=== PATIENT | male | born 1940 | race Caucasian/White ===

== ENCOUNTER → 2017-10-25 | Outpatient (CLI) | payer BC ==
[~2017-10-25] MED LIST: [UNRECOGNIZED DRUG - OTHER]
[2017-10-25 12:35] LABS: HEMATOCRIT 43.3 % (42-52); MEAN CELL VOLUME 90.2 fL (80-100); MEAN CORPUSCULAR HEMOGLOBIN 31.3 pg (25-34); MEAN CORPUSCULAR HGB CONC 34.6 g/dl (32-36); MEAN PLATELET VOLUME 10.1 fL (7.4-10.4); PLATELET COUNT 244 K/uL (130-400); RED CELL DISTRIBUTION WIDTH CV 12.8 % (11.5-14.5); RED CELL DISTRIBUTION WIDTH SD 42.3 fL (36.4-46.3); WHITE BLOOD COUNT 4.82 K/uL (4.8-10.8)
[2017-10-25 12:57] LABS: HEMOGLOBIN A1C 6.1 % (4.5-5.6)
[2017-10-25 13:25] LABS: ALBUMIN 3.7 gm/dl (3.4-5.0); ALT/SGPT 45 U/L (12-78); AST/SGOT 26 U/L (15-37); BLOOD UREA NITROGEN 21 mg/dl (7-18); CALCIUM 8.9 mg/dl (8.5-10.1); CARBON DIOXIDE 24 mmol/L (21-32); CHOLESTEROL 162 mg/dl (0-200); CREATININE 1.35 mg/dl (0.60-1.40); GLUCOSE 149 mg/dl (70-99); POTASSIUM 4.2 mmol/L (3.5-5.1); SODIUM 139 mmol/L (136-145)
[2017-10-25 13:35] LABS: ALKALINE PHOSPHATASE 81 U/L (45-117); LDL CHOLESTEROL CALCULATED 105 mg/dl; TOTAL PROTEIN 7.4 gm/dl (6.4-8.2)
== END | disposition home or self-care (01) ==
LOC: C.LABPVFM 07:46
PROVIDERS: ATTEND Family Medicine
DX: R03.0 Elevated blood-pressure reading, without diagnosis of hypertension (principal)

== ENCOUNTER 2018-01-04 18:47 | Emergency (ER) | payer BC ==
[~2018-01-04] VITALS: Ht 180.3 cm; Wt 130.0 kg
[2018-01-04 18:52] VITALS: TEMP 36.7; Ht 180.3 cm; Wt 130.0 kg
[2018-01-04 19:47] LABS: PTT PATIENT 25.7 SECONDS (21.0-31.0)
--- NOTE | 2018-01-04 20:56 | DIAGNOSTIC IMAGING REPORT ---
ULTRASOUND RIGHT LOWER EXTREMITY VENOUS CLINICAL HISTORY: Right leg pain and swelling. COMPARISON STUDY: No priors. TECHNIQUE: Real-time, grayscale, and color Doppler sonography of the deep veins of the right lower extremity was performed from the inguinal crease to the calf. Compression and augmentation were utilized. FINDINGS: There is no sonographic evidence of deep venous thrombosis identified in the right lower extremity. The common femoral, superficial femoral, and popliteal veins are patent and normally compressible. The greater saphenous vein and the profunda femoris vein at the junction with the common femoral vein are clear. The visualized calf veins are patent. IMPRESSION: There is no sonographic evidence of deep venous thrombosis identified in the right lower extremity. Electronically signed by: Francois Estrada M.D. 01/04/2018 8:55 PM Dictated Date/Time: 01/04/2018 8:54 PM
--- NOTE | 2018-01-04 21:08 | EMERGENCY ROOM VISIT NOTE ---
History First contact with patient: 19:01 Chief Complaint: LEG PAIN,LEG INJURY Stated Complaint: SEVERE PAIN IN LOWER RT LEG, CAN NOT LIFT History of Present Illness The patient is a 77 year old male who presents to the Emergency Room with complaints of right lower leg pain. The patient states that the pain started 2 days ago. He states it hurts if he has to lift up his leg but denies minimal pain with weightbearing. The patient denies any injury to his leg. The patient denies any prior DVTs. The patient is not on any blood thinners. The patient was seen at his PCP yesterday for a cough and was prescribed doxycycline for bronchitis. The patient states the pain did not start in his leg until after he saw his PCP yesterday. The patient denies any chest pain or shortness of breath. The patient denies any increased sitting for any extended period of time. The patient denies current tobacco use. Review of Systems 10 system review was performed and was negative unless stated otherwise history of present illness. Past Medical/Surgical History Right knee surgery Social History Smoking Status: Never Smoker Alcohol Use: occasionally Marital Status: Housing Status: lives with family Occupation Status: retired Current/Historical Medications Scheduled [Supple], DAILY Physical Exam Vital Signs Date Time Temp Pulse Resp B/P (MAP) Pulse Ox O2 Delivery O2 Flow Rate FiO2 18 18:52 36.7 75 18 150/82 95 Room Air Physical Exam GENERAL: 37-year-old male appears in no acute distress. MENTAL Status: Alert and oriented 3. NECK: Supple, no lymphadenopathy noted. No carotid bruits noted. LUNGS: Patient has scattered rhonchi in the right lung field with total clearing with cough. No wheezes or rales noted bilaterally. CARDIAC: Regular rate and rhythm without murmur. . Pulses is full and equal throughout. RIGHT LOWER EXTREMITY: No pitting edema noted. The patient's lower leg does appears slightly edematous but no erythema noted. The patient has superficial varicosities of the right lower extremity. The patient has tenderness palpation over the medial knee and just inferior to the knee on the medial aspect. Popliteal region without tenderness. Medial thigh without tenderness. Negative Homans. Medical Decision & Procedures ER Provider Diagnostic Interpretation: ULTRASOUND RIGHT LOWER EXTREMITY VENOUS CLINICAL HISTORY: Right leg pain and swelling. COMPARISON STUDY: No priors. TECHNIQUE: Real-time, grayscale, and color Doppler sonography of the deep veins of the right lower extremity was performed from the inguinal crease to the calf. Compression and augmentation were utilized. FINDINGS: There is no sonographic evidence of deep venous thrombosis identified in the right lower extremity. The common femoral, superficial femoral, and popliteal veins are patent and normally compressible. The greater saphenous vein and the profunda femoris vein at the junction with the common femoral vein are clear. The visualized calf veins are patent. IMPRESSION: There is no sonographic evidence of deep venous thrombosis identified in the right lower extremity. Electronically signed by: Francois Estrada M.D. Laboratory Results Test 01/04/18 19:19 Prothrombin Time 10.7 SECONDS (9.0-12.0) Prothromb Time International Ratio 1.0 (0.9-1.1) Activated Partial Thromboplast Time 25.7 SECONDS (21.0-31.0) Partial Thromboplastin Ratio 1.0 ED Course The patient was evaluated. Coags were ordered. Venous Doppler of the right lower extremity was ordered. The patient was offered pain medication but declined. Coags were normal. Venous Doppler revealed no evidence of DVT or extensive superficial phlebitis. The patient was informed of the findings. I therefore ordered an x-ray of the right knee to include AP standing x-rays to evaluate for severe osteoarthritis. I discussed with the patient's that since he is also complaining of diffuse joint pain he may want to follow with his family doctor for rheumatoid workup. At this time was the end of my shift and I signed the patient's case out to Dada Truong PA-C. Please see his note for remainder of patient care. Medical Decision Differential diagnosis include varicose veins, superficial phlebitis, DVT [place] Drug Monitoring Program Search Results: patient reviewed within database Medication Reconcilliation Current Medication List: was personally reviewed by me Blood Pressure Screening Patient's blood pressure: Elevated blood pressure Blood pressure disposition: Elevated BP felt to be situational Impression Primary Impression: Leg pain, right Departure Information Condition GOOD Referrals Idalia Blake M.D. (PCP) Patient Instructions My [facility]
--- NOTE | 2018-01-04 21:34 | DIAGNOSTIC IMAGING REPORT ---
AP STANDING VIEW OF BOTH KNEES; 2 VIEWS RIGHT KNEE CLINICAL HISTORY: Right knee pain. FINDINGS: An AP standing view of both knees with AP and crosstable lateral views of the right knee are obtained. No prior studies are available for comparison at the time of dictation. The skeletal structures are osteopenic. No right knee fracture is identified. There is moderate degenerative narrowing at the patellofemoral articulation. Advanced degenerative narrowing is seen in the medial compartment where there is near complete loss of the joint space, bony sclerosis, and subchondral cyst formation within the medial tibial plateau. Only mild narrowing is seen in the lateral compartment. There are marginal osteophytes and small patellar enthesophytes. No joint effusion is identified. Mild prepatellar soft tissue swelling is suggested. Survey images of the left knee on the frontal view show advanced narrowing in the medial compartment and mild to moderate narrowing in the lateral compartment. IMPRESSION: 1. Mild soft soft tissue swelling with no acute bony abnormality identified in the right knee. 2. Osteopenia and arthritic change as above. Electronically signed by: Francois Estrada M.D. 01/04/2018 9:33 PM Dictated Date/Time: 01/04/2018 9:30 PM
--- NOTE | 2018-01-04 22:07 | EMERGENCY ROOM VISIT NOTE ---
ED Visit Note First contact with patient: 21:54 Patient care was assumed from Phoebe Mo PA-C, at the time of shift change. Please see MsTobias Mo dictation for full history of present illness and emergency department course outside of this dictation. In short the patient has nontraumatic right leg pain causing him to come to the ER. Ultrasound has been performed and was negative. We were awaiting x-ray results of the right knee at the time of shift change. X-ray results were reviewed by myself and radiology as below: AP STANDING VIEW OF BOTH KNEES; 2 VIEWS RIGHT KNEE CLINICAL HISTORY: Right knee pain. FINDINGS: An AP standing view of both knees with AP and crosstable lateral views of the right knee are obtained. No prior studies are available for comparison at the time of dictation. The skeletal structures are osteopenic. No right knee fracture is identified. There is moderate degenerative narrowing at the patellofemoral articulation. Advanced degenerative narrowing is seen in the medial compartment where there is near complete loss of the joint space, bony sclerosis, and subchondral cyst formation within the medial tibial plateau. Only mild narrowing is seen in the lateral compartment. There are marginal osteophytes and small patellar enthesophytes. No joint effusion is identified. Mild prepatellar soft tissue swelling is suggested. Survey images of the left knee on the frontal view show advanced narrowing in the medial compartment and mild to moderate narrowing in the lateral compartment. IMPRESSION: 1. Mild soft soft tissue swelling with no acute bony abnormality identified in the right knee. 2. Osteopenia and arthritic change as above. On reevaluation the patient had improved pain in the right knee. He does appear well for discharge home. I did offer him pain medication, but he declined. He was comfortable with taking [id number]-[id number]-[id number] analgesics. I suspect his symptoms are related to chronic arthritic changes, and I will give him resources to follow with orthopedics. Was otherwise invited back to the ER with any new, worsening, or concerning symptoms. Current/Historical Medications Scheduled [Supple], DAILY Allergies Coded Allergies: No Known Allergies (Unverified , 09/12/12) Vital Signs Date Time Temp Pulse Resp B/P (MAP) Pulse Ox O2 Delivery O2 Flow Rate FiO2 01/04/18 21:44 72 18 155/72 95 Room Air 01/04/18 20:30 73 20 151/84 96 Room Air 01/04/18 18:52 36.7 75 18 150/82 95 Room Air Laboratory Results Test 01/04/18 19:19 Prothrombin Time 10.7 SECONDS (9.0-12.0) Prothromb Time International Ratio 1.0 (0.9-1.1) Activated Partial Thromboplast Time 25.7 SECONDS (21.0-31.0) Partial Thromboplastin Ratio 1.0 Departure Information Impression Primary Impression: Leg pain, right Dispostion Home / Self-Care Condition GOOD Referrals Idalia Blake M.D. (PCP) Danny Black D.O. Forms HOME CARE DOCUMENTATION FORM, IMPORTANT VISIT INFORMATION Patient Instructions My [facility] Additional Instructions You were seen and evaluated today on an emergency basis only. This is not a substitute for, or an effort to provide, complete comprehensive medical care. It is not possible to recognize and treat all injuries or illnesses in a single emergency department visit. For this reason it is recommended that you followup with [facility] , Dr. Black's office, with any ongoing or persisting symptoms. You may also wish to follow with her primary care physician with this complaint. For baseline pain relief you may alternate ibuprofen and acetaminophen every 4 hours for pain control. Take 600 mg ibuprofen (Advil) and then 4 hours later take 1000 mg acetaminophen (Tylenol). Do not take more than 3000 mg acetaminophen in a single day. You are welcome to return to the emergency department anytime with new, worsening, or concerning symptoms.
[2018-01-04 22:10] VITALS: BP 135/74; PULSE 70; O2SAT 95
== END 2018-01-04 22:11 | disposition home or self-care (01) ==
LOC: C.EDB 18:49 → C.EDD 22:11
DX: M79.604 Pain in right leg (principal)

== ENCOUNTER → 2018-05-06 | Outpatient (CLI) | payer BC ==
[2018-05-06 13:03] LABS: ALBUMIN 3.5 gm/dl (3.4-5.0); ALKALINE PHOSPHATASE 74 U/L (45-117); ALT/SGPT 38 U/L (12-78); AST/SGOT 25 U/L (15-37); BLOOD UREA NITROGEN 14 mg/dl (7-18); CALCIUM 8.3 mg/dl (8.5-10.1); CARBON DIOXIDE 25 mmol/L (21-32); CHOLESTEROL 150 mg/dl (0-200); CREATININE 1.05 mg/dl (0.60-1.40); GLUCOSE 96 mg/dl (70-99); LDL CHOLESTEROL CALCULATED 86 mg/dl; POTASSIUM 4.1 mmol/L (3.5-5.1); SODIUM 141 mmol/L (136-145)
[2018-05-06 13:26] LABS: HEMOGLOBIN A1C 6.5 % (4.5-5.6)
== END | disposition home or self-care (01) ==
LOC: C.LABPVFM 11:09
PROVIDERS: ATTEND Family Medicine
DX: E66.9 Obesity, unspecified (principal); H61.23 Impacted cerumen, bilateral

== ENCOUNTER 2021-12-07 06:36 | Observation (INO) ==
--- NOTE | 2021-11-09 13:20 | History & Physical Report ---
Date of Service November 09, 2021 date of surgery: 11/15/21 Procedure: Right Total Knee Arthroplasty Surgeon: Mik Bartholomew Assessment & Plan (1) Arthritis of right knee: Plan: Risks and benefits of procedure discussed in detail today, patient would like to proceed with a Right total knee replacement at [facility] as scheduled. will obtain medical clearance from Dr Bateman prior to surgery as well as obtain PATs at [facility]. Will place on ASA 81mg po bid x 1 month post op, f/u 2 weeks post op for routine post-operative care and x-ray, sooner if having any problems. will make arrangements for HHPT at the time of discharge. At this point in time, has failed conservative measures and would like to proceed with surgical intervention. The risks and benefits have been discussed including, but not limited to, risk of infection, nerve injury, stiffness, loss of motion, failure to improve, etc. Reasonable outcomes and options of treatment were discussed. An explanation of appropriate alternatives to the procedure that may be advantageous were di scussed and their risks and benefits, as well as the risks and benefits of not proceeding with treatment. I offered to answer any additional inquiries concerning the treatment involved. All the patient's questions were answered. The patient is agreeable, understanding of the treatment plan and alternatives, and wishes to proceed with the treatment plan. History of Present Illness Chief Complaint: right knee pain Primary Care Provider: Idalia Blake MD Robert is a 81 year old male who complains of Right knee pain, presents for pre-op evaluation prior to a Right total knee replacement by dr Bartholomew at [facility]. He complains of pain, decreased range of motion and stiffness in his Right knee. He states that the symptoms have been chronic and non-traumatic. Robert states that the symptoms occur constantly with intermittent worsening. Currently the patient states that the symptoms are moderate-severe. The pain is described as aching, sharp and throbbing. The symptoms occur continuously. The symptoms are aggravated by ascending stairs, daily activities, first steps while awake walking. Prior NSAIDs include IBU and Aleve. He has been treated with previous visco injections in the past without much relief. previous scope by dr Cardoza several years ago. Allergies Allergy/AdvReac Type Severity Reaction Status Date / Time No Known Allergies Allergy Unverified 08/16/21 12:21 Home Medications Medication Instructions Recorded Confirmed Type True Prostate 1 dose PO QAM 05/17/21 08/16/21 History alpha lipoic acid 100 mg capsule 100 mg PO QAM 05/17/21 08/16/21 History vit A 7,160 unit-vit C 113 mg-vit 1 tab PO QAM 05/17/21 08/16/21 History E 100 ljnc-[id number]-egounf tablet pramipexole 0.125 mg tablet 0.125 mg PO QPM #30 tab 08/16/21 08/16/21 Rx (Mirapex) Past Med/Surg History Medical History Borderline high cholesterol DM (diabetes mellitus), type 2 Diet controlled/under surveillance by PCP Encounter for pre-operative examination [place] (hard of hearing) HTN (hypertension) Pcp monitoring; no medications Obesity (BMI 30-39.9) Osteoarthritis Surgical History History of arthroscopy of right knee History of colonoscopy History of hernia surgery right inguinal History of thumb surgery had metal removed, LEFT History of tooth extraction Family History Family/Other No problems noted. Mother Family history of diabetes mellitus Other Family history of colon cancer in father Denies family history of Ovarian cancer Prostate cancer Clotting disorder Myocardial infarction Breast cancer Social History Smoking Status: Former smoker packs per day: 1; Years Smoked: 25; Second Hand Exposure: No; Hx Alcohol Use: Yes (HX OF - CURRENT : VERY LITTLE) Hx Substance Use: No Preferred Language: Malaysian Communication Ability: Effective [employer] Vault Required: No Beliefs That Will Affect Care: None marital status: Current Living Situation: Spouse current occupational status: retired How many Children do You have: 2 Feels Safe at Home: Yes Childhood Exposure to Second-Hand Smoke: No caffeine: Yes Dental Care, Regularly: No Physical Activity Frequency: Does not Exercise Seatbelt Use: always Sunscreen Use: No Assistive Devices: Denture - Upper, Denture - Lower and Glasses Review of Systems Review of Systems: All systems reviewed & are unremarkable except as noted in HPI & below Constitutional: no fever, no chills and no sweats Respiratory: no cough and no dyspnea Cardiovascular: no chest pain, no dyspnea and no orthopnea Gastrointestinal: no abdominal pain, no nausea and no vomiting Musculoskeletal: as per Subjective / HPI Physical Exam Physical Exam: Ht: 5ft 11in Wt: 128.8kg Constitutional: WD/WN, vitals as above no acute distress Respiratory: normal respiratory effort, lungs clear to auscultation no respiratory distress, no labored breathing and does not use accessory muscles Cardiovascular: RRR, no murmur, no edema Gastrointestinal (Abdomen): normal bowel sounds, soft, nontender, no hepatosplenomegaly Musculoskeletal: Right Knee:+ knee abnormal to inspection , + effusion (+1 effusion), + surgical incision (well healed portals), + limited ROM of knee (ROM 0/3/110), + knee ROM with crepitation, + joint line tenderness (medial joint line) and + Herman's sign positive; no deformity, no skin erythema, no ecchymosis, no valgus laxity, no varus laxity, anterior drawer test negative, Kalpesh's sign negative and pivot shift test negative Results & Data Results & Data ([facility]) Diagnostic Findings Standing weight bearing flexed knee PA views reveal [id number]-[id number]-[id number] articulation of the medial compartment of the knee. 90 degree flexed lateral views reveal maintenance of the joint space consistent with an intact ACL. Osteophyte formation is noted. degenerative changes noted patellofemoral joint. ASSESSMENT: Severe anteromedial arthritis of the knee. bone cyst noted medial tibial plateau.
--- NOTE | 2021-11-11 13:02 | Anesthesiology Consultation ---
Date of Service November 11, 2021 Assessment & Plan (1) Encounter for pre-operative examination: Chart Review Chart Review: Acceptable Risk for Surgery (pending preop Covid testing results ) and Patient NOT seen in Pre Admission Testing - Check BSG AM DOS Per nursing assessment 11/10/2021, patient denies any recent travel. No known Covid infection in the past 90 days. Patient is fully vaccinated for Covid. No known Covid positive exposures or Covid related symptoms. Preop Covid testing 11/11/21= results pending PCP clearance 04/18/21= "Pt cleared as a low risk for knee surgery". (Pt rescheduled multiple times due to Covid surge - did write note to PCP regarding if patient still remained acceptable risk for surgery as he was seen in Aug 2021. Per PCP response 11/11/21= "Yes, I believe he is at acceptable risk for surgery.") History Surgery Operation Date: 11/15/21 11:35 Proposed Procedures p Right Total Knee Arthroplasty - Mik Bartholomew DO Height/Weight Height: 5 ft 11.5 in Weight: 127.006 kg Allergies Allergy/AdvReac Type Severity Reaction Status Date / Time No Known Allergies Allergy Unverified 11/10/21 13:19 Medications Home Medications Medication Instructions Recorded Confirmed Last Taken True Prostate 1 dose PO QAM 05/17/21 11/10/21 Unknown alpha lipoic acid 100 mg capsule 100 mg PO QAM 05/17/21 11/10/21 Unknown vit A 7,160 unit-vit C 113 mg-vit 1 tab PO QAM 05/17/21 11/10/21 Unknown E 100 fasc-opko-eoupcb tablet Past Medical History Medical History Borderline high cholesterol DM (diabetes mellitus), type 2 Diet controlled/under surveillance by PCP [place] (hard of hearing) HTN (hypertension) Pcp monitoring; no medications Obesity (BMI 30-39.9) Osteoarthritis Past Family History Family History Family/Other No problems noted. Mother Family history of diabetes mellitus Other Family history of colon cancer in father Denies family history of Ovarian cancer Prostate cancer Clotting disorder Myocardial infarction Breast cancer Past Surgical History Surgical History History of arthroscopy of right knee History of colonoscopy History of hernia surgery right inguinal History of thumb surgery had metal removed, LEFT History of tooth extraction Social History Smoking Status: Former smoker tobacco type: cigarettes Do You Dip or Chew Tobacco: No Smoking End Date: 1981 Hx Alcohol Use: Yes (HX OF - CURRENT : VERY LITTLE) alcohol intake frequency: holidays/special occasions only Hx Substance Use: No substance use type: does not use Lab Results Anesthesia Preop Results Results Anesthesia Widget: WBC 5.40 K/uL (4.8-10.8) 11/11/21 Hgb 14.8 g/dL (14.0-18.0) 11/11/21 Hct 42.2 % (42-52) 11/11/21 Plt 232 K/uL (130-400) 11/11/21 Na 139 mmol/L (136-145) 11/11/21 K 4.1 mmol/L (3.5-5.1) 11/11/21 Cl 106 mmol/L (98-107) 11/11/21 CO2 26 mmol/L (21-32) 11/11/21 BUN 13 mg/dl (6-23) 11/11/21 Creat 1.12 mg/dl (0.6-1.4) 11/11/21 Glucose Level 150 mg/dl (70-99(Fasting)) H 11/11/21 PT 10.8 Seconds (9.0-12.0) 11/11/21 PTT 27.0 Seconds (21.0-31.0) 11/11/21 INR 1.0 (0.9-1.1) 11/11/21 HA1c 6.8 % (4.5-5.6) H 11/11/21 Urine Color Yellow 11/11/21 Urine Appearance Clear (Clear) 11/11/21 Urine pH 5.5 (4.5-7.5) 11/11/21 Urine Specific [place] 1.018 (1.000-1.030) 11/11/21 Urine Protein Negative (Negative) 11/11/21 Urine Glucose (UA) Negative (Negative) 11/11/21 Urine Ketones Negative (Negative) 11/11/21 Urine Blood Negative (Negative) 11/11/21 Urine Nitrite Negative (Negative) 11/11/21 Urine Bilirubin Negative (Negative) 11/11/21 Urine Urobilinogen Negative (Negative) 11/11/21 Urine Leukocyte Esterase Negative (Negative) 11/11/21 Testing Electrocardiogram Date: 04/18/21 NSR at 69bpm. LAFB. Unchanged from prior per confirming provider Chest X-Ray Date: 05/23/21 FINDINGS: No pneumothorax. No pleural effusions. The heart remains mildly enlarged. There are low lung volumes. Chronic bibasilar interstitial thickening persists. The upper lung zones are clear. No new focal lung consolidations to suggest pneumonia. No evidence for pulmonary edema. IMPRESSION: No significant change compared to the prior study. No acute process.
[~2021-12-07 06:36] MED LIST changes: +ACETAMINOPHEN 500 MG TAB PO SCH; +CeleBREX 200 MG CAP PO SCH; +FAMOTIDINE 20 MG TAB PO SCH; +GABAPENTIN 300 MG CAP PO SCH; +LR 500ML BOLUS, THEN 15ML/HR IV SCH; +METOCLOPRAMIDE HCL 10 MG TABLET PO SCH; +ROPIVACAINE 0.5% HCL/PF 150 MG, BUPIVACAINE 0.75% MPF 20 ML, EPINEPHrine 30MG/30ML (OR ... INFIL SCH; +Scopolamine 1 MG TDSY TD SCH; +Scopolamine CHECK PATCH PLACEMENT SCH; +TRANEXAMIC ACID 1,000 MG **IV Intra-op IV SCH; +TRANEXAMIC ACID 1,000 MG **IV Pre-op IV SCH; -[UNRECOGNIZED DRUG - OTHER]; +dexAMETHasone 4 MG TAB PO SCH
[2021-12-07] MEDS ORDERED: MIDAZOLAM HCL 1 MG/ML 2ML VIAL ONE (07:06)
[2021-12-07] MEDS ORDERED: fentaNYL citrate 100 MCG/2 ML VIAL ONE (07:06)
--- NOTE | 2021-12-07 07:18 | History & Physical Bridge Note ---
Date of Service December 07, 2021 History & Physical Bridge Note I have examined the patient, reviewed the History & Physical and in the interval since the performance of the History & Physical I have noted the following changes of clinical significance: no changes noted
[2021-12-07] MEDS ORDERED: BUPIVACAINE 0.25% 30 ML VIAL ONE (07:29)
[2021-12-07] MEDS ORDERED: DEXAMETHASONE SOD INJ 4 MG/ML VIAL ONE (07:29)
[2021-12-07] MEDS ORDERED: BUPIVACAINE 0.5 % 5 MG/1 ML PF 10ML VIAL ONE (07:29)
[2021-12-07] MEDS ORDERED: EPINEPHrine INJ 1 MG/ML AMP ONE (07:29)
[2021-12-07] MEDS ORDERED: ePHEDrine sulfate 50 MG/ML AMP IV PRN (07:36)
[2021-12-07] MEDS ORDERED: ATROPINE SULFATE 0.1 MG/ML 10ML SYR IV PRN (07:36)
[2021-12-07] MEDS ORDERED: fentaNYL citrate 100 MCG/2 ML VIAL IV PRN (07:36)
[2021-12-07] MEDS ORDERED: ONDANSETRON INJ 2 MG/ML 2 ML VIAL IV PRN ×2 (07:36→13:50)
[2021-12-07] MEDS ORDERED: ORTHO JOINT ANESTHETIC ONE (07:39)
[2021-12-07] MEDS ORDERED: LIDOCAINE 2% 2 ML VIAL/AMP(20MG/ML) INFIL ONE (08:47)
[2021-12-07] MEDS ORDERED: PROPOFOL IV EMULSION 10 MG/ML 20 ML VIAL IV ONE ×2 (08:47→09:24)
[2021-12-07] MEDS ORDERED: ONDANSETRON INJ 2 MG/ML 2 ML VIAL ONE (08:50)
[2021-12-07] MEDS ORDERED: ePHEDrine sulfate 50 MG/ML AMP ONE (08:59)
--- NOTE | 2021-12-07 09:39 | Operative Report ---
Post Operative Report Pre & Post Diagnosis Operation Date: 12/07/21 08:10 Pre-Op Diagnosis: Right Knee Osteoarthritis Post-Op Diagnosis: Right Knee Osteoarthritis I identified the patient and participated in the time-out.: Yes Procedure Operation Date: 12/07/21 08:10 Actual Procedures p Right Total Knee Arthroplasty utilizing [employer] Nephew nonwalk total knee arthroplasty size femur 7 tibia 6 polynine patella 35 oval (Right) - Mik Bartholomew DO Surgeon Mik Bartholomew DO Diesel Stationary Engineer Sarabjit LOYOLA Estimated Blood Loss 5 Findings Consistent with Post-Op Diagnosis Patient presents with severe end-stage DJD varus alignment subchondral sclerosis marginal osteophytes eburnated [id number] moderate to large effusion large medial cystic lesion in the region of the MCL ganglion cyst Specimens Bone and cartilage Anesthesia Type MAC Spinal Regional Complications none Disposition Accompanied Patient To Recovery: No Disposition: Recovery Room Indications Patient presents with severe end-stage tricompartmental DJD eburnated [id number] 7 degree flexion contracture varus alignment no response to conservative management clinic physical therapy anti-inflammatories relative res t activity modification corticosteroid injection viscosupplementation above intraoperative findings were noted Description of Procedure After proper prepping and draping of the Right lower extremity anterior midline incision was made over the region of the extensor extensor mechanism after meticulous hemostasis was obtained and maintained in subcutaneous tissues a medial parapatellar incision was made The patella was subluxed lateralward the medial lateral gutter were cleaned from any hypertrophic synovitis and scar tissue of the distal femoral block was placed and the distal femoral osteotomy cut was made subsequently the chamfers anterior and posterior osteotomy cuts were made utilizing the 4-in-1 block the tibia was subsequently subluxed anteriorward medial and ateral meniscal remnants were excised in their entirety remnants of the anterior and posterior cruciate ligaments were excised in their entirety excellent exposure of the proximal tibia was obtained the tibial osteotomy guide was placed on the proximal tibial osteotomy cut was made once again the knee was irrigated with copious amounts of sterile saline solution the patella was subsequently everted lateralward thickened scar tissue around the patella was removed the patella was subsequently cut utilizing a freehand technique and was drilled prepared for final preparation and placement of patella socially flexion-extension gaps were checked and the equal and symmetric trials were placed to the appropriate femoral and tibial trials with poly-spacer being placed for equal flexion and extension gaps and full range of motion including extension to 0 and flexion to 140 the trial components after having been taken to recovery range of motion was subsequently removed meticulous hemostasis was obtained and maintained subsequently a knee block injection of joint cocktail including ropivacaine 0.5% 150 mg. Bupivacaine 0.5% epinephrine 1-200,030 mL's toradol 30 mg dexamethasone 4 mg ketamine 10 mg clonidine 100 micrograms normal saline solution 30 mg was infiltrated into the soft tissues of the posterior knee medial lateral gutters and periosteal synovium special attention was paid to protect neurovascular structures at all times subsequently trial components having been removed the knee was irrigated with sterile saline solution. debris was removed the proximal tibia was subsequently prepared and was made ready for the placement of the tibial component tibial component was also cemented and tamped into position the femoral component was subsequently pl aced and cemented in the position the patellar component was subsequently cemented in position because hemostasis once again obtained and maintained wound having been thoroughly irrigated with debridement and debridement lavage was performed as well as a medial parapatellar incision closed with #1 Vicryl in interrupted fashion subcutaneous was closed with #2 Vicryl skin was closed with skin clips. PA-C was necessary for prepping and drapping as well as wound closure of deep fascia Sub cutaneous tissue and skin and was necessary for the case. A sterile compressive dressing was placed patient was taken to recovery in stable condition of report dictated by Puma I attest to the content of the Intraoperative Record and any orders documented therein. Any exceptions are noted below.Due to the complex nature of the procedure, the entire surgery was performed with the operational assistance of Williams LOYOLA The retail loan originator assistant, under direct supervision, was involved in the actual performance of all aspects of the surgical procedure including hemostasis, tissue retraction and incision, instrument management, patient positioning, and wound closure. I attest to the content of the Intraoperative Record and any orders documented therein. Any exceptions are noted below.
--- NOTE | 2021-12-07 10:57 | Anesthesiology Progress Note ---
Date of Service December 07, 2021 Anesthesia Post Procedure Vital Signs Vital Signs: Temp Pulse Pulse Resp BP Pulse Ox 12/07/21 10:35 58 L 14 101/54 L 97 12/07/21 10:25 62 16 97/53 L 98 12/07/21 10:16 36.1 C L 61 16 104/42 L 96 12/07/21 07:28 37.3 C 74 20 177/84 H 96 Transfer of Care Handoff Completed per policy Notes Mental Status: alert / awake / arousable Patient Amnestic to Procedure: Yes Nausea / Vomiting: adequately controlled Pain: adequately controlled Airway Patency, RR, SpO2: stable & adequate BP & HR: stable & adequate Hydration State: stable & adequate Neuraxial Anesthesia: was administered and sensory block is resolving Anesthetic Complications: no major complications apparent and Pt Satisfied with anesthetic care
--- NOTE | 2021-12-07 11:21 | XRay Report ---
XR knee RT 1 or 2V routine HISTORY: 81 years-old Male Surgical Post Op right knee total joint arthroplasty COMPARISON: Knee radiographs 01/04/2018 TECHNIQUE: 2 views of the right knee FINDINGS: Right knee total joint arthroplasty and patella resurfacing. Anterior midline skin preet are noted along with expected postoperative soft tissue swelling and deep tissue air with surgical drainage cat heter. No acute fracture, malalignment or unexpected opaque foreign body. IMPRESSION: Right knee total joint arthroplasty with expected postoperative changes. ACT 112: Negative or not required by law. The above report was generated using voice recognition software. It may contain grammatical, syntax o r spelling errors. Electronically signed by: Silvestre Disla M.D. 12/07/2021 11:19 AM
[2021-12-07] MEDS ORDERED: HYDROmorphone INJ 0.5 MG/0.5 ML SYR IV PRN (13:50)
[2021-12-07] MEDS ORDERED: PHARMACY GLYCEMIC MGMT CONSULT PRN (13:50)
[2021-12-07] MEDS ORDERED: bisacodyL 10 MG SUPP PR PRN (13:50)
[2021-12-07] MEDS ORDERED: oxyCODONE HCL IR 5 MG TAB (IMMEDIATE RELEASE) PO PRN (13:50)
[2021-12-07] MEDS ORDERED: MAGNESIUM HYDROXIDE SUSP 30 ML UDC PO PRN (13:50)
[2021-12-07] MEDS ORDERED: NALOXONE HCL 0.4 MG/1 ML VIAL/CARP IV PRN (13:50)
[2021-12-07] MEDS ORDERED: TAMSULOSIN HCL 0.4 MG CAP PO PRN (13:50)
[2021-12-07] MEDS: SODIUM CHLORIDE 0.9% 1000ML 1,000 ML IV SCH (14:14)
[2021-12-07] MEDS ORDERED: GLUCOSE 40% GEL 15 GM TUBE PO PRN (14:30)
[2021-12-07] MEDS ORDERED: CARBOHYDRATES FOR HYPOGLYCEMIA PO PRN (14:30)
[2021-12-07] MEDS ORDERED: NovoLIN-N (NPH) PER UNIT CHARGE SQ ONE (14:30)
[2021-12-07] MEDS ORDERED: GLUCOSE 10 TABS/TUBE PO PRN (14:30)
[2021-12-07] MEDS ORDERED: GLUCAGON FOR INJ 1 MG VIAL IM PRN (14:30)
[2021-12-07] MEDS ORDERED: DEXTROSE 50% 50 ML SYRINGE IV PRN (14:30)
[2021-12-07] MEDS: ACETAMINOPHEN 500 MG TAB PO SCH ×2 (14:48→21:55)
[2021-12-07] MEDS: INSULIN ASPART PER UNIT SC SCH ×3 (14:49→22:02)
--- NOTE | 2021-12-07 15:15 | Pharmacy Report ---
Pharmacy Glycemic Short Note 2 - Date of Service December 07, 2021 - Glycemic Short BSG Results (Last 24 hours): 12/07/21 12/07/21 12/07/21 07:13 10:16 13:55 POC Glucose 150 H 156 H 177 H OUTPATIENT ANTIDIABETIC REGIMEN: * Diet controlled * HbA1C = 6.8% ASSESSMENT: * Patient's BSGs prior to surgery were 150-156 mg/dL and after surgery was 177 mg/dL. * Patient received dexamethasone 8 mg PO preop and dexamethasone 4 mg IV intraoperatively. * Start NPH 25 units (0.2 units/kg due to body habitus) SQ x 1. Re-evaluate future need based upon morning BSG. * Novolog weight-based stress of 2. PLAN FOR INPATIENT GLYCEMIC CONTROL: * Basal insulin * NPH 25 units SQ x 1 * Bolus insulin * NovoLog per scale ACHS or Q6hrs while NPO * Goal Range: Low 110 mg/dL - High 140 mg/dL * Correction Factor: 20 mg/dL/unit * Nutritional / Prandial insulin per carb ratio of 1 unit per 6 grams CHO consumed
--- NOTE | 2021-12-07 15:34 | Hospitalist Consultation ---
Date of Consultation December 07, 2021 Assessment & Plan (1) Hx of total knee arthroplasty: Status post right TKA on 12/07 Postoperative care as per orthopedic surgery Pain control, bowel regimen Antiemetics as needed Perioperative antibiotics with cefazolin given Doing very well postoperatively DVT prophylaxis with SCDs and aspirin 81 mg p.o. twice daily Follow CBC and BMP in the morning Plan is to go home with home health when stable (2) DM (diabetes mellitus), type 2: HgbA1C recently 6.8% He uses diet control at home Pharmacy is consulted here and using insulin, both basal and bolus Accu-Cheks and diabetic diet (3) RLS (restless legs syndrome): Does not take medications for this Follow-up with PCP (4) Allergic rhinitis: Noted, no medications needed (5) HTN (hypertension): Noted as an outpatient but is not on medications Blood pressures here are normal Follow Prophylaxis-SCDs, aspirin 81 mg p.o. twice daily Disposition-continued stay on medical/surgical floor, PT/OT consulted, plan is for home with home health when stable from an orthopedic standpoint Hospitalist service will follow along for at least 1 day postoperatively History of Present Illness Reason for Consultation: Post op medical management Requesting Physician: Dr. Bartholomew Attending Physician: Mik Bartholomew, History of Present Illness This patient is a 81-year-old male with a history of HTN and DM2 not on any medications, allergic rhinitis, obesity, hearing loss, enlarged prostate, and GARETH who is here admitted after a right TKA. The hospital service is consulted for postoperative medical management. He is doing very well. He denies any nausea or vomiting. He is eating his dinner. He denies chest pains or shortness of breath. He did have Covid 3 weeks ago. He reports he had very mild symptoms with a fever for 1 day and a very mild cough which has since resolved. He did not require any hospitalization. This did delay his surgery until now. He has no other complaints. Allergies Allergy/AdvReac Type Severity Reaction Status Date / Time No Known Allergies Allergy Verified 12/07/21 07:26 Home Medications Medication Instructions Recorded Confirmed Type True Prostate 1 dose PO QAM 05/17/21 12/07/21 History alpha lipoic acid 100 mg capsule 100 mg PO QAM 05/17/21 12/07/21 History vit A 7,160 unit-vit C 113 mg-vit 1 tab PO QAM 05/17/21 12/07/21 History E 100 nnir-[id number] tablet Patient History Medical History Borderline high cholesterol DM (diabetes mellitus), type 2 Diet controlled/under surveillance by PCP [place] (hard of hearing) HTN (hypertension) Pcp monitoring; no medications Obesity (BMI 30-39.9) Osteoarthritis RLS (restless legs syndrome) Surgical History (Updated 12/07/21 @ 15:35 by Carmenza Boland MD) History of arthroscopy of right knee History of colonoscopy History of hernia surgery right inguinal History of thumb surgery had metal removed, LEFT History of tooth extraction Hx of total knee arthroplasty Family History Family/Other No problems noted. 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 Beliefs That Will Affect Care: None marital status: Current Living Situation: Spouse current occupational status: retired How many Children do You have: 2 Feels Safe at Home: Yes Safety Concerns: Feels Safe At This Time Childhood Exposure to Second-Hand Smoke: No caffeine: Yes Dental Care, Regularly: No Physical Activity Frequency: Does not Exercise Seatbelt Use: always Sunscreen Use: No Assistive Devices: Denture - Upper, Denture - Lower and Glasses Review of Systems Review of Systems: All systems reviewed & are unremarkable except as noted in HPI & below Physical Exam Constitutional: WD/WN, vitals as above Eyes: + anicteric sclerae ENMT: external ear and nose normal, oropharynx normal Neck: trachea midline, no thyromegaly Respiratory: normal respiratory effort, lungs clear to auscultation Cardiovascular: RRR, no murmur, no edema Chest (Breasts): Chest: normal inspection of chest Gastrointestinal (Abdomen): normal bowel sounds, soft, nontender, no hepatosplenomegaly Musculoskeletal: Extremities: + extremities abnormal to inspection (Lower extremity with Mejia wrap in place not removed), no cyanosis and no clubbing Skin: no rashes, warm and dry Neurologic: moves all extremities and awake; no focal motor deficits Psychiatric: A+Ox3, euthymic affect Lymphatic: no lymphedema Results & Data Results & Data ([facility]) Vital Signs (Past 12 Hours) Vital Signs Temp Pulse Pulse Resp BP Pulse Ox 12/07/21 14:41 73 18 150/78 H 93 12/07/21 14:15 36.6 C 66 16 170/80 H 95 12/07/21 13:45 36.8 C 64 18 137/67 96 12/07/21 13:15 36.5 C 57 L 15 148/76 H 96 12/07/21 13:00 36.5 C 57 L 15 158/88 H 97 12/07/21 12:45 36.5 C 63 14 137/86 96 12/07/21 12:30 36.5 C 60 18 128/79 96 12/07/21 12:15 60 17 122/82 96 12/07/21 12:00 60 15 127/66 95 12/07/21 11:45 56 L 15 130/68 96 12/07/21 11:30 58 L 16 116/62 96 12/07/21 11:15 36.4 C L 59 L 18 117/64 95 12/07/21 11:05 36.4 C L 60 16 112/59 L 97 12/07/21 10:55 56 L 14 117/61 96 12/07/21 10:45 60 12 108/57 L 96 12/07/21 10:35 58 L 14 101/54 L 97 12/07/21 10:25 62 16 97/53 L 98 12/07/21 10:16 36.1 C L 61 16 104/42 L 96 12/07/21 07:28 37.3 C 74 20 177/84 H 96 Laboratory Results preop labs reviewed PG Care Time/CCT Total # of Minutes Spent Total Time Spent with Patient: Total time spent is greater than 50% in coordination of care (as documented) at patient's floor/unit and/or counseling patient: Coding Level of Care Code 63090 Inpt Consult Level 2 Diagnoses RLS (restless legs syndrome) G25.81 Allergic rhinitis J30.9 DM (diabetes mellitus), type 2 E11.9 HTN (hypertension) I10 Hx of total knee arthroplasty Z96.659
[2021-12-07] MEDS ORDERED: Scopolamine CHECK PATCH PLACEMENT SCH (16:00)
[2021-12-07] MEDS: ceFAZolin 2000MG 2,000 MG/15 ML SYR IV SCH (19:03)
[2021-12-07] MEDS ORDERED: SENNA 8.6 MG TAB PO SCH (21:00)
[2021-12-07] MEDS: DOCUSATE SODIUM 100 MG CAP PO SCH (21:56)
[2021-12-07] MEDS: ASPIRIN 81 MG ECTAB PO SCH (21:56)
[2021-12-08] MEDS: ceFAZolin 2000MG 2,000 MG/15 ML SYR IV SCH (00:12)
[2021-12-08] MEDS: SODIUM CHLORIDE 0.9% 1000ML 1,000 ML IV SCH (00:13)
[2021-12-08] MEDS: ACETAMINOPHEN 500 MG TAB PO SCH (06:02)
[2021-12-08 06:25] LABS: Hematocrit (blood only) 33.7 % (42-52); Hemoglobin 11.8 g/dL (14.0-18.0); Mean Corpuscular Hemoglobin 31.6 pg (25-34); Mean Corpuscular Volume 90.1 fL (80-100); Mean Platelet Volume 9.7 fL (7.4-10.4); Platelet Count 209 K/uL (130-400); RDW Coefficient of Variation 12.8 % (11.5-14.5); Red Blood Count 3.74 M/uL (4.7-6.1); White Blood Count 12.34 K/uL (4.8-10.8)
[2021-12-08 06:52] LABS: BUN Creatinine Ratio 23.6 (10-20); Creatinine Clr Calc Pharmacy 74.5 ml/min; Est GFR (African American) 73.6 ml/min; Est GFR (Non-African American) 63.5 ml/min; Potassium 4.2 mmol/L (3.5-5.1)
[2021-12-08] MEDS ORDERED: NovoLIN-N (NPH) PER UNIT CHARGE SQ ONE (08:00)
[2021-12-08] MEDS: DOCUSATE SODIUM 100 MG CAP PO SCH (08:24)
[2021-12-08] MEDS: ASPIRIN 81 MG ECTAB PO SCH (08:24)
[2021-12-08] MEDS: INSULIN ASPART PER UNIT SC SCH ×2 (08:29→12:20)
[2021-12-08] MEDS ORDERED: HYDROCODONE/ACETAMOPHEN 5/325MG TAB PO PRN (08:51)
[2021-12-08] MEDS ORDERED: MULTIVITAMIN TAB PO SCH (09:00)
--- NOTE | 2021-12-08 09:10 | Orthopedic Progress Note ---
Date of Service December 08, 2021 Assessment & Plan (1) Arthritis of right knee: Plan: Postop day 1 status post right total knee arthroplasty PT/OT protocols. Weightbearing as tolerated. DVT prophylaxis-aspirin p.o. twice daily, SCDs, KAYCEE segovia. Pain management-switch from oxycodone to hydrocodone. DC planning-patient is planning for home health services upon discharge. Admission and Anticipated Discharge Date Admission Date: December 07, 2021 Subjective POD 1 Patient is sitting up in his chair at the bedside. No complaints this morning. Pain is controlled. Denies shortness of breath, chest pain, lightheadedness. He is asking that his oxycodone be switched to [place]. Denies allergy but states that apparently it works better for him. Physical Exam Physical Exam: Dressings are clean, dry, and intact. Calves are soft and nontender. Neurovascular is intact. Toes are mobile. He has good dorsiflexion and plantarflexion of the right knee. Hemovac drainage was 75ml from this morning with a total of about 115ml through the night. Results & Data ([facility]) Vital Signs (Past 12 Hours) Vital Signs Temp Pulse Resp BP Pulse Ox 12/08/21 07:30 36.4 C L 56 L 16 121/66 96 12/08/21 05:01 36.4 C L 63 17 133/73 96 12/08/21 01:54 36.6 C 63 17 124/76 92 12/07/21 21:44 36.5 C 62 17 135/64 93 Laboratory Results Laboratory Results WBC 12.34 K/uL (4.8-10.8) H 12/08/21 06:00 RBC 3.74 M/uL (4.7-6.1) L 12/08/21 06:00 Hgb 11.8 g/dL (14.0-18.0) L 12/08/21 06:00 Hct 33.7 % (42-52) L 12/08/21 06:00 MCV 90.1 fL (80-100) 12/08/21 06:00 MCH 31.6 pg (25-34) 12/08/21 06:00 MCHC 35.0 g/dL (32-36) 12/08/21 06:00 RDW Std Deviation 42.0 fL (36.4-46.3) 12/08/21 06:00 RDW Coeff of Yennifer 12.8 % (11.5-14.5) 12/08/21 06:00 Plt Count 209 K/uL (130-400) 12/08/21 06:00 MPV 9.7 fL (7.4-10.4) 12/08/21 06:00 Sodium 138 mmol/L (136-145) 12/08/21 06:00 Potassium 4.2 mmol/L (3.5-5.1) 12/08/21 06:00 Chloride 107 mmol/L (98-107) 12/08/21 06:00 Carbon Dioxide 21 mmol/L (21-32) 12/08/21 06:00 Anion Gap 10 (3-11) 12/08/21 06:00 BUN 26 mg/dl (6-23) H 12/08/21 06:00 Creatinine 1.10 mg/dl (0.6-1.4) 12/08/21 06:00 Est Cr Clr Drug Dosing 74.5 ml/min 12/08/21 06:00 Est GFR ( Amer) 73.6 ml/min 12/08/21 06:00 Est GFR (Non-Af Amer) 63.5 ml/min 12/08/21 06:00 BUN/Creatinine Ratio 23.6 (10-20) H 12/08/21 06:00 Glucose 149 mg/dl (70-99(Fasting)) H 12/08/21 06:00 POC Glucose 159 mg/dl (70-99) H 12/08/21 08:07 Calcium 8.0 mg/dl (8.5-10.1) L 12/08/21 06:00 Blood Type B Negative 12/07/21 07:39 Antibody Screen NEGATIVE 12/07/21 07:39 Impressions Knee X-Ray 12/07/21 10:29 XR knee RT 1 or 2V routine HISTORY: 81 years-old Male Surgical Post Op right knee total joint arthroplasty COMPARISON: Knee radiographs 01/04/2018 TECHNIQUE: 2 views of the right knee FINDINGS: Right knee total joint arthroplasty and patella resurfacing. Anterior midline skin preet are noted along with expected postoperative soft tissue swelling and deep tissue air with surgical drainage catheter. No acute fracture, malalignment or unexpected opaque foreign body. IMPRESSION: Right knee total joint arthroplasty with expected postoperative changes. ACT 112: Negative or not required by law. The above report was generated using voice recognition software. It may contain grammatical, syntax or spelling errors. Electronically signed by: Silvestre Disla M.D. 12/07/2021 11:19 AM
--- NOTE | 2021-12-08 11:23 | Hospitalist Progress Note ---
Date of Service December 08, 2021 Assessment & Plan (1) Hx of total knee arthroplasty: Plan: Status post right TKA pod#1 Postoperative care as per orthopedic surgery Pain control, bowel regimen Antiemetics as needed Perioperative antibiotics with cefazolin given Doing very well postoperatively DVT prophylaxis ordered w/ aspirin 81 mg p.o. twice daily--will need minimum of 14 days Plan is to go home with his and home health services (2) DM (diabetes mellitus), type 2: Plan: HgbA1C recently 6.8% He uses diet control at home Pharmacy is consulted here and using insulin, both basal and bolus Accu-Cheks and diabetic diet (3) RLS (restless legs syndrome): Plan: Does not take medications for this Follow-up with PCP (4) Allergic rhinitis: Plan: Noted, no medications needed (5) HTN (hypertension): Plan: Noted as an outpatient but is not on medications Blood pressures here are normal Plan: At this time, pt is medically and hemodynamically stable for discharge home w/ home health from a medical standpoint. I have no further recommendations. Medicine will sign off. Advise pain control, DVT ppx, and f/u as outlined by orthopedics. Above plan of care to be d/w Dr. Joe. Admission and Anticipated Discharge Date Admission Date: December 07, 2021 Subjective Patient seen on daily rounds this morning. S/p R TKA pod #1. He is sitting up in his chair at the bedside. No complaints this morning. Pain is controlled. Denies shortness of breath, chest pain, headache, or gu symptoms. Ambulated this AM with PT and did exercise. No issues. Review of Systems Review of Systems: CONSTITUTIONAL: Denies weight loss/gain, fever and chills, fatigue, malaise, generalized weakness. HEENT: Denies changes in vision and hearing. RESPIRATORY: Denies SOB, cough, wheezing. CV: Denies palpitations, CP, lower extremity edema, orthopnea, PND. GI: Denies abdominal pain, nausea, vomiting and diarrhea. : Denies dysuria and urinary frequency, urgency, hesitancy. MUSCULOSKELETAL: Denies myalgia and joint pain. SKIN: Denies rash and pruritus. NEUROLOGICAL: Denies headache, syncope, focal weakness, numbness, tingling. PSYCHIATRIC: Denies recent changes in mood. Denies anxiety and depression. Physical Exam Physical Exam: GENERAL: 81 yo well-developed, well-nourished elderly WM. NAD. LUNGS: Clear to auscultation bilaterally. No accessory muscle use. No W/R/R. CARDIOVASCULAR: Regular rate and rhythm. No M/G/R. No JVD. ABDOMEN: Soft, non-tender and non-distended. BS normal x 4 quad. EXTREMITIES: No edema. Non-tender. Peripheral pulses +2/4. Negative maria esther's sign on the right. No calf tenderness. NEUROLOGIC: A&O x3. PSYCHIATRIC: Cooperative. Appropriate mood and affect. SKIN: Warm, dry, intact. No rashes or lesions. Results & Data Results & Data ([facility]) Vital Signs (Past 12 Hours) Vital Signs Temp Pulse Resp BP Pulse Ox 12/08/21 07:30 36.4 C L 56 L 16 121/66 96 12/08/21 05:01 36.4 C L 63 17 133/73 96 12/08/21 01:54 36.6 C 63 17 124/76 92 Laboratory Results 12/08/21 06:00 12/08/21 06:00 PG Care Time/CCT Total # of Minutes Spent Total Time Spent with Patient: Total time spent is greater than 50% in coordination of care (as documented) at patient's floor/unit and/or counseling patient: Coding Level of Care Code 86613 Subseq Hosp Care Lvl 2 Diagnoses Hx of total knee arthroplasty Z96.659 DM (diabetes mellitus), type 2 E11.9 RLS (restless legs syndrome) G25.81 Allergic rhinitis J30.9 HTN (hypertension) I10
--- NOTE | 2021-12-08 12:17 | Pharmacy Report ---
Pharmacy Glycemic Short Note 2 - Date of Service December 08, 2021 - Glycemic Short BSG Results (Last 24 hours): 12/07/21 12/07/21 12/07/21 13:55 17:56 20:50 Glucose POC Glucose 177 H 210 H 173 H 12/08/21 12/08/21 12/08/21 06:00 08:07 11:49 Glucose 149 H POC Glucose 159 H 114 H OUTPATIENT ANTIDIABETIC REGIMEN: * Diet controlled * HbA1C = 6.8% ASSESSMENT: * Patient's BSGs yesterday were [phone] mg/dL and fasting this morning was 159 mg/dL. Lunch BSG of 114 mg/dL. * BSG at dinnertime yesterday was drawn < 2 hours after lunch insulin given so therefore elevated. * Fasting BSG > 140 mg/dL so give NPH 10 units SQ x 1 due to lingering steroid effects. * Loosen Novolog as steroid effects wear off at lunch. Baseline * Patient's BSGs prior to surgery were 150-156 mg/dL and after surgery was 177 mg/dL. * Patient received dexamethasone 8 mg PO preop and dexamethasone 4 mg IV intraoperatively. * Start NPH 25 units (0.2 units/kg due to body habitus) SQ x 1. Re-evaluate future need based upon morning BSG. * Novolog weight-based stress of 2. PLAN FOR INPATIENT GLYCEMIC CONTROL: * Basal insulin * NPH 10 units SQ x 1 * Bolus insulin * NovoLog per scale ACHS or Q6hrs while NPO * Goal Range: Low 110 mg/dL - High 140 mg/dL * Correction Factor: 25 mg/dL/unit * Nutritional / Prandial insulin per carb ratio of 1 unit per 8 grams CHO consumed
--- NOTE | 2021-12-09 10:47 | Discharge Summary ---
Date of Service December 09, 2021 Admission HPI Per Admitting Provider Lucrecia is a 81 year old male who complains of Right knee pain, presents for pre-op evaluation prior to a Right total knee replacement by dr Bartholomew at [facility]. He complains of pain, decreased range of motion and stiffness in his Right knee. He states that the symptoms have been chronic and non-traumatic. Lucrecia states that the symptoms occur constantly with intermittent worsening. Currently the patient states that the symptoms are moderate-severe. The pain is described as aching, sharp and throbbing. The symptoms occur continuously. The symptoms are aggravated by ascending stairs, daily activities, first steps while awake walking. Prior NSAIDs include IBU and Aleve. He has been treated with previous visco injections in the past without much relief. previous scope by dr Cardoza several years ago. Admission Exam Per Admitting Provider Physical Exam: Ht: 5ft 11in Wt: 128.8kg Constitutional: WD/WN, vitals as above no acute distress Respiratory: normal respiratory effort, lungs clear to auscultation no respiratory distress, no labored breathing and does not use accessory muscles Cardiovascular: RRR, no murmur, no edema Gastrointestinal (Abdomen): normal bowel sounds, soft, nontender, no hepatosplenomegaly Musculoskeletal: Right Knee:+ knee abnormal to inspection , + effusion (+1 effusion), + surgical incision (well healed portals), + limited ROM of knee (ROM 0/3/110), + knee ROM with crepitation, + joint line tenderness (medial joint line) and + Herman's sign positive; no deformity, no skin erythema, no ecchymosis, no valgus laxity, no varus laxity, anterior drawer test negative, Kalpesh's sign negative and pivot shift test negative Principal Diagnosis Right Knee Osteoarthritis Discharge Data Allergies Allergy/AdvReac Type Severity Reaction Status Date / Time No Known Allergies Allergy Verified 12/07/21 07:26 Consultations 12/07/21 13:50 Consult Hospitalist Routine Procedures Performed Operation Date: 12/07/21 08:10 Actual Procedures p Right Total Knee Arthroplasty(Right) - Mik Bartholomew DO Ordered Studies 11/15/21 05:00 US - OR guided needle placemen Routine 12/07/21 05:00 US - OR guided needle placemen Routine Hospital Course (1) Arthritis of right knee: [facility] [id number] Orthopedic Progress Note Signed Patient:LUCRECIA ODONNELL Admit Date:12/07/21 MR#:[id number] Att Phy:Mik Bartholomew D.O. Acct ID:[id number] Janet Phy:Idalia Blake MD Date:1940 Fam Phy: Age:81 Location:3E Sex:M Room/Bed:[facility] cc: ~ *NOTICE TO RECEIVING CONSTITUTION PARTY/AGENCY This information is strictly Confidential and protected under [place] law. [place] law prohibits you from making any further disclosure of this information unless further disclosure is expressly permitted by the written consent of the person to whom it pertains or is authorized by law. A general authorization for the release of medical or other information is not sufficient for this purpose. Hospital accepts no responsibility if the information is made available to any other person, INCLUDING THE PATIENT. Date of Service December 08, 2021 Assessment & Plan (1) Arthritis of right knee: Plan: Postop day 1 status post right total knee arthroplasty PT/OT protocols. Weightbearing as tolerated. DVT prophylaxis-aspirin p.o. twice daily, SCDs, KAYCEE segovia. Pain management-switch from oxycodone to hydrocodone. DC planning-patient is planning for home health services upon discharge. Patient was progressing with his physical therapy and remaining stable and was felt he can be discharged home. Admission and Anticipated Discharge Date Admission Date: December 07, 2021 Subjective POD 1 Patient is sitting up in his chair at the bedside. No complaints this morning. Pain is controlled. Denies shortness of breath, chest pain, lightheadedness. He is asking that his oxycodone be switched to [place]. Denies allergy but states that apparently it works better for him. Physical Exam Physical Exam: Dressings are clean, dry, and intact. Calves are soft and nontender. Neurovascular is intact. Toes are mobile. He has good dorsiflexion and plantarflexion of the right knee. Hemovac drainage was 75ml from this morning with a total of about 115ml through the night. Results & Data ([facility]) Vital Signs (Past 12 Hours) Vital Signs Temp Pulse Resp BP Pulse Ox 12/08/21 07:30 36.4 C L 56 L 16 121/66 96 12/08/21 05:01 36.4 C L 63 17 133/73 96 12/08/21 01:54 36.6 C 63 17 124/76 92 12/07/21 21:44 36.5 C 62 17 135/64 93 Laboratory Results Laboratory Results WBC 12.34 K/uL (4.8-10.8) H 12/08/21 06:00 RBC 3.74 M/uL (4.7-6.1) L 12/08/21 06:00 Hgb 11.8 g/dL (14.0-18.0) L 12/08/21 06:00 HctE 33.7 % (42-52) L 12/08/21 06:00 MCV 90.1 fL (80-100) 12/08/21 06:00 MCH 31.6 pg (25-34) 12/08/21 06:00 MCHC 35.0 g/dL (32-36) 12/08/21 06:00 RDW Std Deviation 42.0 fL (36.4-46.3) 12/08/21 06:00 RDW Coeff of Yennifer 12.8 % (11.5-14.5) 12/08/21 06:00 Plt Count 209 K/uL (130-400) 12/08/21 06:00 MPV 9.7 fL (7.4-10.4) 12/08/21 06:00 Sodium 138 mmol/L (136-145) 12/08/21 06:00 Potassium 4.2 mmol/L (3.5-5.1) 12/08/21 06:00 Chloride 107 mmol/L (98-107) 12/08/21 06:00 Carbon Dioxide 21 mmol/L (21-32) 12/08/21 06:00 Anion Gap 10 (3-11) 12/08/21 06:00 BUN 26 mg/dl (6-23) H 12/08/21 06:00 Creatinine 1.10 mg/dl (0.6-1.4) 12/08/21 06:00 Est Cr Clr Drug Dosing 74.5 ml/min 12/08/21 06:00 Est GFR ( Amer) 73.6 ml/min 12/08/21 06:00 Est GFR (Non-Af Amer) 63.5 ml/min 12/08/21 06:00 BUN/Creatinine Ratio 23.6 (10-20) H 12/08/21 06:00 Glucose 149 mg/dl (70-99(Fasting)) H 12/08/21 06:00 POC Glucose 159 mg/dl (70-99) H 12/08/21 08:07 Calcium 8.0 mg/dl (8.5-10.1) L 12/08/21 06:00 Blood Type B Negative 12/07/21 07:39 Antibody Screen NEGATIVE 12/07/21 07:39 Impressions Knee X-Ray 12/07/21 10:29 XR knee RT 1 or 2V routine HISTORY: 81 years-old Male Surgical Post Op right knee total joint arthroplasty COMPARISON: Knee radiographs 01/04/2018 TECHNIQUE: 2 views of the right knee FINDINGS: Right knee total joint arthroplasty and patella resurfacing. Anterior midline skin preet are noted along with expected postoperative soft tissue swelling and deep tissue air with surgical drainage catheter. No acute fracture, malalignment or unexpected opaque foreign body. IMPRESSION: Right knee total joint arthroplasty with expected postoperative changes. Total Time Total Time Spent Total Time Spent (In Minutes): 5 Discharge Plan Discharge Items Patient Disposition: Home - Home Health Services Reason For Visit: Right Knee Osteoarthritis Discharge Diagnosis: Right Knee Osteoarthritis Activity: Per Instructions section Weightbearing: Right weightbearing Weightbearing Comment: as tolerated with walker Non-emergency contact: Surgeon Call non-emergency contact if: your pain is not controlled, your temperature is above 101.5, your wound has increased redness and your wound has increased drainage Follow-up/Referrals: Idalia Blake MD [Primary Care Provider] - Mik Bartholomew DO [Surgeon] - 12/21/21 3:15 pm (Follow up in 14 days for your first wound check APPT WITH NOLBERTO BENSON PA-C [facility]) Diet: Carb Consistent or DM2 Addtl Attending Provider Instructions: ACTIVITY RECOMMENDATIONS: SELF CARE INSTRUCTIONS AFTER TOTAL KNEE REPLACEMENT A. You may need to continue a physical therapy program after discharge from the hospital. There are several options available to you. Your doctor will assist you in selecting the best one for you. 1. An out-patient facility 2 to 3 times a week for therapy or home therapy. 2. Continue working on all exercises taught to you in the hospital. Your goals should be to increase bending of your knee to 90 degrees and beyond and to fully straighten your knee. B. You may progress at your own pace from walking with a walker or crutches to a cane; then to no assistive devices. C. Make walking a part of your daily routine. Be up as much as comfortable with rest periods throughout the day. Rest with leg elevation is very important. Use the ice wrap frequently for the first 3-4 weeks. D. There are no restrictions on activities. You may ride in a car, shop, participate in program host and all social activities. E. Wear the long elastic stockings (KAYCEE hose) 20 hours a day for 2 weeks after surgery. They can be removed several times a day for laundering and for a bath. F. You may shower, no tub baths until cleared by your doctor. SPECIAL CARE INSTRUCTIONS: VERY IMPORTANT TO READ AND REVIEW A. There are a few signs you need to watch for after you are home. Call [facility] if you notice any of the followin. Increased severe knee pain. Some pain is expected especially when you exercise. 2. Increased swelling in your leg or knee; pain or swelling of the calf muscle in either lower leg. 3. Any fluid drainage from the incision. 4. Shortness of breath or chest pain. B. Please call [facility] at if you have any concerns or questions about your operation or recovery. The doctor or his nurse will return your call promptly. C. You must take antibiotics before dental work, bladder, bowel or other surgery. Your doctor will provide you with a permanent care to carry describing this precaution. IMPORTANT: * REMEMBER TO TAKE ASPIRIN, 81 MG, TWICE DAILY FOR 4 WEEKS UNLESS OTHERWISE DIRECTED. THIS IS YOUR BLOOD THINNER. * HIGH RISK PATIENTS MAY BE PRESCRIBED A STRONGER BLOOD THINNER. THIS WILL BE PROVIDED AT DISCHARGE. * CALL IF INCREASED PAIN, REDNESS, DRAINAGE OR FEVER GREATER THAT 101. * WEAR KAYCEE HOSE 20 HOURS PER DAY FOR 2 WEEKS. * CANDICE Dressing - This is a large suction dressing covering your incision. This will help pull any excess drainage from the wound and allow your incision to heal properly. You may shower with this if you can keep the unit outside of the shower. If any bleeding or leakage is noted please call your doctor's office. This will remain on your incision for 7 days and then should be removed. This can be done yourself or by the home nursing staff if applicable. The entire unit is disposable once removed. Once removed, keep incision clean and dry. If redness or drainage is noted, please call your surgeon. . Home health to d/c hemovac drain tomorrow. FOLLOW UP VISIT: If appointment is not already scheduled: Please call [facility] to make a follow-up appointment for 2 weeks after your surgery at . Stand-Alone Forms: Anesthesia/Sedation, Adult, [facility], Opioid Pain Management, Smoking Cessation Medications and DC Order Prescriptions: New aspirin 81 mg Tablet,Delayed Release (Dr/Ec) 81 mg PO BID 30 Days Qty: 60 RF: 0 polyethylene glycol 3350 [Miralax] 17 gram powder in packet 17 g PO DAILY PRN (Reason: constipation) Qty: 5 RF: 0 hydrocodone-acetaminophen 5-325 mg tablet 1 - 2 tab PO Q6H MDD 8 tabs PRN (Reason: pain) Qty: 30 RF: 0 cefadroxil 500 mg capsule 500 mg PO BID Qty: 28 RF: 1 Continued alpha lipoic acid 100 mg Capsule 100 mg PO QAM RF: 0 vit A-vit C-vit Z-rshw-fluhlf 7,160-113-100 pavl-fv-lljo Tablet 1 tab PO QAM RF: 0 True Prostate 1 dose PO QAM RF: 0 Discharge Orders: Discharge Order (Routine); Ordered 12/08/21 Ordered By: Joe Espino/Other Patient Handouts: DVT Post Op Prevention, Managing Type 2 Diabetes, Hemovac Drain Tube Dc Admission Data Admit Date/Time: 12/07/21 10:29 Attending Provider: Mik Bartholomew Admit Provider: Mik Bartholomew Primary Care Provider: Idalia Blake Other Providers: Jeremy Paz,Home Health Other Interventions: Discharge Summary Assessment (RN) Last Done: 12/08/21 12:00
== END 2021-12-08 15:36 | disposition home health service (06) ==
LOC: PACUINP 06:36 → ASU 06:36 → SUATTDRO 10:29 → 3E 14:04
DX: E11.9 Type 2 diabetes mellitus without complications; M17.11 Unilateral primary osteoarthritis, right knee; G25.81 Restless legs syndrome; Z87.891 Personal history of nicotine dependence; I10 Essential (primary) hypertension

== ENCOUNTER 2022-06-27 07:45 | Observation (INO) ==
--- NOTE | 2022-05-24 13:42 | PAT Medication Instructions ---
Medication Instructions Date of Service May 24, 2022 Home Medications True Prostate 1 dose PO QAM alpha lipoic acid 100 mg capsule 100 mg PO QAM vit A 7,160 unit-vit C 113 mg-vit E 100 yecl-leeg-foqhcr tablet 1 tab PO QAM STOP taking 2 weeks before surgery (or as soon as possible if surgery is within 2 weeks) True Prostate 1 dose PO QAM alpha lipoic acid 100 mg capsule 100 mg PO QAM vit A 7,160 unit-vit C 113 mg-vit E 100 hanr-vrhe-hahfxr tablet 1 tab PO QAM Other Notes If you have any questions please call us at [phone] or [phone] or [phone] or [phone]
--- NOTE | 2022-05-31 08:25 | Anesthesiology Consultation ---
Date of Service May 31, 2022 Assessment & Plan (1) Encounter for pre-operative examination: - Patient acceptable risk for surgery pending surgeon-ordered PCP preop evaluation ([facility], scheduled 06/12). - COVID screening: Per assessment on 05/31: No known COVID-19 positive contacts or current COVID-19 related symptoms. Travel screen negative. Patient vaccinated. At surgeon discretion if preop Covid testing being done. - Check BSG AM DOS - S/P Right TKA (12/07/21): SAB at L3/4 + PNB at [facility]. No issues noted per post- op anesthesia progress note. Chart Review Chart Review: Patient seen in Pre Admission Testing Teaching & Discussion Pre-Anesthesia Teaching/Discussion Notes: Instructed NPO after midnight before surgery,except medications with 15 cc of water. Medication instructions provided according to the PAT guidelines. History Surgery Operation Date: 06/27/22 12:05 Proposed Procedures p Left Total Knee Arthroplasty - Mik Bartholomew DO Height/Weight Height: 5 ft 11.5 in Weight: 126.6 kg Allergies Allergy/AdvReac Type Severity Reaction Status Date / Time No Known Allergies Allergy Verified 05/23/22 15:31 Medications Home Medications Medication Instructions Recorded Confirmed Last Taken True Prostate 1 dose PO QAM 05/17/21 05/23/22 11/30/21 alpha lipoic acid 100 mg capsule 100 mg PO QAM 05/17/21 05/23/22 11/30/21 vit A 7,160 unit-vit C 113 mg-vit 1 tab PO QAM 05/17/21 05/23/22 11/30/21 E 100 tksl-iqsc-pjsves tablet Past Medical History Medical History Borderline high cholesterol DM (diabetes mellitus), type 2 Diet controlled/under surveillance by PCP History of COVID-19 Dx 11/2021--asymptomatic (tested for preop) [place] (hard of hearing) HTN (hypertension) PCP monitoring, no medications Obesity (BMI 30-39.9) Osteoarthritis RLS (restless legs syndrome) Exercise / Class Metabolic Activity III < 4 Walking/Shop/Light housework (one FS (no CP, + SOB)) Past Family History Family History Family/Other No problems noted. Mother Family history of diabetes mellitus Other Family history of colon cancer in father No family history of adverse response to anesthesia Denies family history of Ovarian cancer Prostate cancer Clotting disorder Myocardial infarction Breast cancer Past Surgical History Surgical History History of arthroplasty of right knee Right TKA (12/07/21): SAB at L3/4 + PNB at [facility]. No issues noted per post-op anesthesia progress note. History of arthroscopy of right knee History of colonoscopy History of hernia surgery right inguinal History of thumb surgery Left (had metal removed) History of tooth extraction Past Anesthesia History No Hx of Anesthesia Complications and No Family Hx of Anesthesia Complications History of PONV No Hx of PONV and No Hx of Motion Sickness Social History Smoking Status: Former smoker tobacco type: cigarettes Do You Dip or Chew Tobacco: No Smoking End Date: Quit 50 years ago Hx Alcohol Use: Yes alcohol intake frequency: a few times a month Hx Substance Use: No substance use type: does not use Review of Systems Patient denies chest pain, shortness of breath, fever, chills, cough, wheezing, palpitations. Physical Exam Vital Signs VITALS BP 133/69 P 64 TEMP 98.5 SP02 95%RA RESP 16 PHYSICAL Full cervical extension range of motion. Full TMJ range of motion. TMD 3.5 finger breaths Mallampati Score 3 Dentition: full dentures upper/lower Lungs: clear throughout to auscultation Cardiac: regular rate and rhythm, no murmurs noted Spine: normal Carotid arteries: negative bruit Extremities: no edema Lab Results Anesthesia Preop Results Results Anesthesia Widget: WBC 4.18 K/ul (4.8-10.8) L 05/31/22 Hgb 13.3 g/dl (14.0-18.0) L 05/31/22 Hct 38.9 % (40.1-51.0) L 05/31/22 Plt 233 K/uL (130-400) 05/31/22 Na 140 mmol/L (136-145) 05/31/22 K 3.9 mmol/L (3.5-5.1) 05/31/22 Cl 108 mmol/L (98-107) H 05/31/22 CO2 24 mmol/L (21-32) 05/31/22 BUN 17 mg/dl (6-23) 05/31/22 Creat 1.07 mg/dl (0.6-1.4) 05/31/22 Glucose Level 152 mg/dl (70-99(Fasting)) H 05/31/22 PT 10.9 Seconds (9.0-12.0) 05/31/22 PTT 26.6 Seconds (21.0-31.0) 05/31/22 INR 1.0 (0.9-1.1) 05/31/22 Urine Color Dark Yellow 05/31/22 Urine Appearance Clear (Clear) 05/31/22 Urine pH 5.0 (4.5-7.5) 05/31/22 Urine Specific [place] 1.023 (1.000-1.030) 05/31/22 Urine Protein Negative (Negative) 05/31/22 Urine Glucose (UA) Negative (Negative) 05/31/22 Urine Ketones Trace (Negative) H 05/31/22 Urine Blood Negative (Negative) 05/31/22 Urine Nitrite Negative (Negative) 05/31/22 Urine Bilirubin Negative (Negative) 05/31/22 Urine Urobilinogen Negative (Negative) 05/31/22 Urine Leukocyte Esterase Negative (Negative) 05/31/22 Blood Type B Negative 05/31/22 Antibody Screen NEGATIVE 05/31/22 Testing Laboratory Results 03/28/22 HGBA1C 6.7% Electrocardiogram Date: 05/31/22 Sinus bradycardia 59 bpm. LAD. No significant change compared to 11/24/2019 per pension adviser review. Chest X-Ray Date: 05/31/22 FINDINGS: Cardiomediastinal and hilar silhouettes are unchanged. Hyperinflation with diaphragmatic flattening. No pneumothorax, pleural effusion, airspace consolidation or overt pulmonary edema. Degenerative changes of the shoulders and spine. IMPRESSION: Mild hyperinflation without acute process. COVID-19 Risk Screen Screening Information COVID-19 Screen Date: 05/31/22 Exposure 21 Days Family/Household +COVID Last 21 Days: No Exposure 10 Days Any COVID Exposure Last 10 Days: No Symptoms Last 10 Days Experienced COVID Sx Last 10 Days: No + COVID 0-90 Days COVID + in Last 0-90 Days: No
--- NOTE | 2022-06-13 08:07 | History & Physical Report ---
Date of Service June 13, 2022 date of surgery: 06/27/22 Procedure: Left Total Knee Arthroplasty Surgeon: Mik Bartholomew Assessment & Plan (1) Arthritis of knee, left: Plan: Further care discussed with patient and at this point in time has failed conservative measures and would like to proceed with a Left total knee replacement. Plan on discharge will be home with home health physical therapy. DVT prophylaxiswith TEDs, SCDs and will also place on aspirin 81 mg p.o. b.i.d. for a month postop. Patient will have follow up appointment in our office two weeks post op for staple/suture removal and re-evaluation. Patient otherwise has no other questions or concerns. The risks and benefits have been discussed including, but not limited to, risk of infection, nerve injury, stiffness, loss of motion, failure to improve, etc. Reasonable outcomes and options of treatment were discussed. An explanation of appropriate alternatives to the procedure that may be advantageous were discussed and their risks and benefits, as well as the risks and benefits of not proceeding with treatment. I offered to answer any additional inquiries concerning the treatment involved. All the patient's questions were answered. The patient is agreeable, understanding of the treatment plan and alternatives, and wishes to proceed with the treatment plan. History of Present Illness Chief Complaint: left knee pain Primary Care Provider: Idalia Blake MD Robert is an 82-year-old male who presents for preop evaluation prior to left total knee replacement. He states that he is having pain in his knee for many years now which is gradually worsened and is now affecting his daily activities. Is difficulty walking standing and wakes up at night. He has tried previous viscosupplementation injection without much relief. He is also tried oral anti- inflammatories and Tylenol. At this point time is failed conservative measures like to proceed with a left total knee replacement Allergies Allergy/AdvReac Type Severity Reaction Status Date / Time No Known Allergies Allergy Verified 06/12/22 12:43 Home Medications Medication Instructions Recorded Confirmed Type True Prostate 1 dose PO QAM 05/17/21 06/12/22 History alpha lipoic acid 100 mg capsule 100 mg PO QAM 05/17/21 06/12/22 History vit A 7,160 unit-vit C 113 mg-vit 1 tab PO QAM 05/17/21 06/12/22 History E 100 jncf-hbhh-frdvqh tablet Past Med/Surg History Medical History Borderline high cholesterol DM (diabetes mellitus), type 2 Diet controlled/under surveillance by PCP History of COVID-19 Dx 11/2021--asymptomatic (tested for preop) FALSE [place] (hard of hearing) HTN (hypertension) PCP monitoring, no medications Obesity (BMI 30-39.9) Osteoarthritis RLS (restless legs syndrome) Surgical History History of arthroplasty of right knee Right TKA (12/07/21): SAB at L3/4 + PNB at [facility]. No issues noted per post-op anesthesia progress note. History of arthroscopy of right knee History of colonoscopy History of hernia surgery right inguinal History of thumb surgery Left (had metal removed) History of tooth extraction Family History Family/Other No problems noted. 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 Beliefs That Will Affect Care: None marital status: Current Living Situation: Spouse current occupational status: retired How many Children do You have: 2 Childhood Exposure to Second-Hand Smoke: No caffeine: Yes Dental Care, Regularly: No Physical Activity Frequency: Does not Exercise Seatbelt Use: always Sunscreen Use: No Assistive Devices: Denture - Upper, Denture - Lower and Glasses Review of Systems Review of Systems: All systems reviewed & are unremarkable except as noted in HPI & below Constitutional: no fever, no chills and no sweats Respiratory: no cough and no dyspnea Cardiovascular: no chest pain, no dyspnea and no orthopnea Gastrointestinal: no abdominal pain, no nausea and no vomiting Musculoskeletal: as per Subjective / HPI Physical Exam Physical Exam: HT: 5ft 11in WT: 126.6kg Constitutional: WD/WN, vitals as above no acute distress Respiratory: normal respiratory effort, lungs clear to auscultation no respiratory distress, no labored breathing and does not use accessory muscles Cardiovascular: RRR, no murmur, no edema Gastrointestinal (Abdomen): normal bowel sounds, soft, nontender, no hepatosplenomegaly Musculoskeletal: Knee: + knee abnormal to inspection (left knee: ), + effusion (+1 effusion), + limited ROM of knee (ROM 0/3/110), + knee ROM with crepitation, + joint line tenderness (medial joint line) and + Herman's sign positive; no deformity, no skin erythema, no ecchymosis, no valgus laxity, no varus laxity, anterior drawer test negative, Kalpesh's sign negative and pivot shift test negative Results & Data Results & Data ([facility]) Diagnostic Findings Left Knee X-ray: left knee series confirm advanced degenerative changes to the left knee, greatest medial compartments and patellofemoral joint, showing joint space narrowing, osteophyte formation and subchondral sclerosis. no acute bony pathology noted.
[~2022-06-27 07:45] MED LIST changes: +BUPIVACAINE 0.5 % 5 MG/1 ML PF 10ML VIAL ONE; +BUPIVACAINE LIPOSOME/PF 266 MG, BUPIVACAINE/EPINEPHRINE 50 ML, SODIUM CHLORIDE 0.9% 30 ... INFIL SCH; +EPINEPHrine INJ 1 MG/ML AMP ONE; +ROPIVACAINE 0.5% 5 MG/ML 30 ML VIAL ONE; -Scopolamine 1 MG TDSY TD SCH; -Scopolamine CHECK PATCH PLACEMENT SCH
--- NOTE | 2022-06-27 08:22 | History & Physical Bridge Note ---
Date of Service June 27, 2022 History & Physical Bridge Note I have examined the patient, reviewed the History & Physical and in the interval since the performance of the History & Physical I have noted the following changes of clinical significance: no changes noted
[2022-06-27] MEDS ORDERED: fentaNYL citrate 100 MCG/2 ML VIAL ONE (09:28)
[2022-06-27] MEDS ORDERED: MIDAZOLAM HCL 1 MG/ML 2ML VIAL ONE ×2 (09:28)
[2022-06-27] MEDS ORDERED: LABETALOL HCL IV 5 MG/ML 20ML IV PRN (09:37)
[2022-06-27] MEDS ORDERED: ATROPINE SULFATE 0.1 MG/ML 10ML SYR IV PRN (09:37)
[2022-06-27] MEDS ORDERED: ePHEDrine sulfate 50 MG/ML AMP IV PRN (09:37)
[2022-06-27] MEDS ORDERED: ONDANSETRON INJ 2 MG/ML 2 ML VIAL IV PRN ×2 (09:37→14:36)
[2022-06-27] MEDS ORDERED: MEPERIDINE HCL 25 MG/ML CARP/VIAL IV PRN (09:37)
[2022-06-27] MEDS ORDERED: PHENYLEPHRINE 100MCG/ML 5ML SYR IV PRN (09:37)
[2022-06-27] MEDS ORDERED: HYDROmorphone INJ 1 MG/ML SYRINGE IV PRN (09:37)
[2022-06-27] MEDS ORDERED: fentaNYL citrate 100 MCG/2 ML VIAL IV PRN (09:37)
[2022-06-27] MEDS ORDERED: ORTHO JOINT ANESTHETIC ONE (10:15)
[2022-06-27] MEDS ORDERED: PROPOFOL IV EMULSION 10 MG/ML 20 ML VIAL IV ONE ×2 (11:59→12:16)
--- NOTE | 2022-06-27 12:04 | Operative Report ---
Post Operative Report Pre & Post Diagnosis Operation Date: 06/27/22 10:35 Pre-Op Diagnosis: Arthritis of left knee Post-Op Diagnosis: Arthritis of left knee I identified the patient and participated in the time-out.: Yes Procedure Operation Date: 06/27/22 10:35 Actual Procedures p Left Total Knee Arthroplasty(Left) utilizing Delacruz & Nephew journey to an en bloc total knee arthroplasty size femur 8 tibia 7 polynine patella 35 clarita- Mik Bartholomew DO Surgeon Mik Bartholomew DO Dial Lathe Operator Sarabjit LOYOLA Estimated Blood Loss 5 Findings Consistent with Post-Op Diagnosis Patient resents with 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 varus alignment subchondral sclerosis marginal osteophytes eburnated [id number] moderate to large effusion Specimens Bone and cartilage Drains Medium bore Hemovac Anesthesia Type MAC Spinal Regional Complications none Disposition Accompanied Patient To Recovery: No Disposition: Recovery Room Indications Patient presents with 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 failed attempted conservative management clinic physical therapy anti-inflammatories relative rest activity modification corticosteroid injection viscosupplementation above intraoperative findings were noted Description of Procedure After proper prepping and draping of the left lower extremity anterior midline incision was made over the region of the extensor extensor mechanism after meticulous hemostasis was obtained and maintained in subcutaneous tissues a medial parapatellar incision was made The patella was subluxed lateralward the medial lateral gutter were cleaned from any hypertrophic synovitis and scar tissue of the distal femoral block was placed and the distal femoral osteotomy cut was made subsequently the chamfers anterior and posterior osteotomy cuts were made utilizing the 4-in-1 block the tibia was subsequently subluxed anteriorward medial and ateral meniscal remnants were excised in their entirety remnants of the anterior and posterior cruciate ligaments were excised in their entirety excellent exposure of the proximal tibia was obtained the tibial osteotomy guide was placed on the proximal tibial osteotomy cut was made once again the knee was irrigated with copious amounts of sterile saline solution the patella was subsequently everted lateralward thickened scar tissue around the patella was removed the patella was subsequently cut utilizing a freehand technique and was drilled prepared for final preparation and placement of patella socially flexion-extension gaps were checked and the equal and symmetric trials were placed to the appropriate femoral and tibial trials with poly-spacer being placed for equal flexion and extension gaps and full range of motion including extension to 0 and flexion to 140 the trial components after having been taken to recovery range of motion was subsequently removed meticulous hemostasis was obtained and maintained subsequently a knee block injection of joint cocktail including ropivacaine 0.5% 150 mg. Bupivacaine 0.5% epinephrine 1-200,030 mL's toradol 30 mg dexamethasone 4 mg ketamine 10 mg clonidine 100 micrograms normal saline solution 30 mg was infiltrated into the soft tissues of the posterior knee medial lateral gutters and periosteal synovium special attention was paid to protect neurovascular structures at all times subsequently trial components having been removed the knee was irrigated with sterile saline solution. debris was removed the proximal tibia was subsequently prepared and was made ready for the placement of the tibial component tibial component was also cemented and tamped into position the femoral component was subsequently placed and cemented in the position the patellar component was subsequently cemented in position because hemostasis once again obtained and maintained wound having been thoroughly irrigated with debridement and debridement lavage was performed as well as a medial parapatellar incision closed with #1 Vicryl in interrupted fashion subcutaneous was closed with #2 Vicryl skin was closed with skin clips. PA-C was necessary for prepping and drapping as well as wound closure of deep fascia Sub cutaneous tissue and skin and was necessary for the case. A sterile compressive dressing was placed patient was taken to recovery in stable condition of report dictated by Puma I attest to the content of the Intraoperative Record and any orders documented therein. Any exceptions are noted below.Due to the complex nature of the procedure, the entire surgery was performed with the operational assistance of Sarabjit LOYOLA. The post production assistant, under direct supervision, was involved in the actual performance of all aspects of the surgical procedure including hemostasis, tissue retraction and incision, instrument management, patient positioning, and wound closure. I attest to the content of the Intraoperative Record and any orders documented therein. Any exceptions are noted below.
[2022-06-27] MEDS ORDERED: ePHEDrine sulfate 50 MG/ML AMP ONE (12:17)
[2022-06-27] MEDS ORDERED: ePHEDrine sulfate 50 MG/ML SYR ONE (12:19)
[2022-06-27] MEDS ORDERED: ONDANSETRON INJ 2 MG/ML 2 ML VIAL ONE (12:19)
--- NOTE | 2022-06-27 13:35 | XRay Report ---
XR knee LT 1 or 2V routine CLINICAL HISTORY: Surgical Post Op TECHNIQUE: 2 views of the left knee were obtained. Comparison: Comparison is made to left knee radiographs 09/12/2012 FINDINGS: Patient is status post total knee arthroplasty with expected postsurgical changes including soft tiss ue swelling and subcutaneous emphysema. No periarticular lucency or hardware fracture is seen. IMPRESSION: Expected postoperative appearance status post placement of total knee arthroplasty. ACT 112: Negative or not required by law. Electronically signed by: Leonard Galaviz M.D. 06/27/2022 1:34 PM
--- NOTE | 2022-06-27 14:02 | Anesthesiology Progress Note ---
Date of Service June 27, 2022 Anesthesia Post Procedure Vital Signs Vital Signs: Temp Pulse Pulse Resp BP Pulse Ox O2 Del Method 06/27/22 13:54 71 16 114/60 94 Nasal Cannula 06/27/22 13:45 36.4 C L 63 17 108/61 95 Nasal Cannula 06/27/22 13:35 65 21 100/80 95 Oxymask 06/27/22 13:25 66 17 111/61 93 Oxymask 06/27/22 13:15 71 20 114/65 96 Oxymask 06/27/22 13:05 69 17 112/58 L 95 Oxymask 06/27/22 12:55 69 23 106/60 97 Oxymask 06/27/22 12:45 36.4 C L 76 19 105/64 99 Oxymask 06/27/22 08:28 36.9 C 69 20 169/90 H 96 Room Air O2 Flow Rate 06/27/22 13:54 2 06/27/22 13:45 2 06/27/22 13:35 4 06/27/22 13:25 4 06/27/22 13:15 4 06/27/22 13:05 4 06/27/22 12:55 6 06/27/22 12:45 8 06/27/22 08:28 Pain Intensity Left Knee: Pain Intensity: 2 Transfer of Care Handoff Completed per policy Notes Mental Status: alert / awake / arousable Patient Amnestic to Procedure: Yes Nausea / Vomiting: adequately controlled Pain: adequately controlled Airway Patency, RR, SpO2: stable & adequate BP & HR: stable & adequate Hydration State: stable & adequate Neuraxial Anesthesia: was administered and sensory block is resolving Anesthetic Complications: no major complications apparent and Pt Satisfied with anesthetic care
[2022-06-27] MEDS ORDERED: bisacodyL 10 MG SUPP PR PRN (14:36)
[2022-06-27] MEDS ORDERED: MAGNESIUM HYDROXIDE SUSP 30 ML UDC PO PRN (14:36)
[2022-06-27] MEDS ORDERED: oxyCODONE HCL IR 5 MG TAB (IMMEDIATE RELEASE) PO PRN (14:36)
[2022-06-27] MEDS ORDERED: NALOXONE HCL 0.4 MG/1 ML VIAL/CARP IV PRN (14:36)
[2022-06-27] MEDS ORDERED: diphenhydrAMINE 50 MG/ML VIAL IV PRN (14:36)
[2022-06-27] MEDS ORDERED: HYDROmorphone INJ 0.5 MG/0.5 ML SYR IV PRN (14:36)
[2022-06-27] MEDS: SODIUM CHLORIDE 0.9% 1000ML 1,000 ML IV SCH (15:26)
[2022-06-27] MEDS: ACETAMINOPHEN 500 MG TAB PO SCH ×2 (15:28→23:59)
[2022-06-27] MEDS ORDERED: GLUCOSE 10 TAB/TUBE PO PRN (15:50)
[2022-06-27] MEDS ORDERED: DEXTROSE 50% 50 ML SYRINGE IV PRN (15:50)
[2022-06-27] MEDS ORDERED: GLUCOSE 40% GEL 15 GM TUBE PO PRN (15:50)
[2022-06-27] MEDS ORDERED: GLUCAGON FOR INJ 1 MG VIAL SQ PRN (15:50)
[2022-06-27] MEDS ORDERED: CARBOHYDRATES FOR HYPOGLYCEMIA PO PRN (15:50)
--- NOTE | 2022-06-27 15:50 | Hospitalist Consultation ---
Date of Consultation June 27, 2022 Assessment & Plan (1) Status post total left knee replacement: -Patient is currently afebirle, hemodynamically stable, and stable on RA -Antibiotics, pain control, DVT PPX, and IV fluids per the primary team -Agree with AM CBC and BMP (2) HTN (hypertension): -Not currently on antihypertensives outpatient -Monitor for now (3) DM (diabetes mellitus), type 2: -Currently controls blood sugar with diet and exercise -Will obtain new A1C -Switched diet to consistent carb and heart healthy -Will monitor blood glucose ACHS for now and start with a correction factor of 35, adjust as needed Plan The patient was discussed with Dr. Martin at the time of the admission Supervising Physician Co-Signing Physician Notes I personally saw and examined the patient. I verified all perez points and agree with Triston Diane PA-C with the following exceptions and/or additions: 82 year old male POD #0 Left TKA. O/E HS1+2, RRR, no murmurs, Chest CTAB, Abdo SNT A/P s/p left TKA - pain and VTE management per orthopedics T2DM - HbA1C with AM labs, insulin sliding scale, carb and correction factor overnight as above. Discussed with patient recommend he follows up with his PCP on discharge to discuss potentially starting a medication for this diabetes. High blood pressure without diagnosed hypertension - continue to monitor, no new medications recommend at this stage. History of Present Illness Reason for Consultation: post-op medical management Requesting Physician: Mik Bartholomew DO Attending Physician: Dr. Jeremy Martin History of Present Illness Robert is a 81-year-old male with a history of HTN and DM2 not on any medications, allergic rhinitis, obesity, hearing loss, enlarged prostate, previous right total knee arthropathy, and GARETH who presented to the [facility] OR on 06/27/22 for elective left TKA with Dr. Bartholomew. Per the post-op report, EBL was 5 mL, there were no reported complications, and anesthesia was listed as MAC Spinal Regional. At the time of the exam the patient was sitting comfortably in bed in no acute distress. He states that he is currently in no pain post-op and has no complaints at the time of the exam. When asked, he states that he is still controlling his blood sugar with diet and exercise and is currently on no other medications. He denies using CPAP at night. Allergies Allergy/AdvReac Type Severity Reaction Status Date / Time No Known Allergies Allergy Verified 06/27/22 08:16 Home Medications Medication Instructions Recorded Confirmed Type True Prostate See Rx Instructions .Route 05/17/21 06/12/22 History .COMPLEX as directed alpha lipoic acid 100 mg capsule 100 mg PO QAM 05/17/21 06/27/22 History vit A 7,160 unit-vit C 113 mg-vit 1 tab PO QAM 05/17/21 06/27/22 History E 100 [id number] tablet acetaminophen 500 mg tablet 1,000 mg PO Q8H 14 days #84 tabs 06/28/22 Rx (Tylenol Extra Strength) aspirin 81 mg tablet,delayed 81 mg PO BID 30 days #60 tabs 06/28/22 Rx release cefadroxil 500 mg capsule 500 mg PO BID #28 caps 06/28/22 Rx hydrocodone 5 mg-acetaminophen 325 1 - 2 tab PO Q6H PRN pain #30 tabs 06/28/22 Rx mg tablet polyethylene glycol 3350 17 gram 17 g PO DAILY PRN constipation #5 06/28/22 Rx oral powder packet (Miralax) ea Patient History Medical History Borderline high cholesterol DM (diabetes mellitus), type 2 Diet controlled/under surveillance by PCP History of COVID-19 Dx 11/2021--asymptomatic (tested for preop) [place] (hard of hearing) HTN (hypertension) PCP monitoring, no medications Obesity (BMI 30-39.9) Osteoarthritis RLS (restless legs syndrome) Surgical History History of arthroplasty of right knee Right TKA (12/07/21): SAB at L3/4 + PNB at [facility]. No issues noted per post-op anesthesia progress note. History of arthroscopy of right knee History of colonoscopy History of hernia surgery right inguinal History of thumb surgery Left (had metal removed) History of tooth extraction Family History Family/Other No problems noted. Mother Family history of diabetes mellitus Other Family history of colon cancer in father No family history of adverse response to anesthesia Denies family history of Ovarian cancer Prostate cancer Clotting disorder Myocardial infarction Breast cancer Social History Smoking Status: Former smoker packs per day: 1; Years Smoked: 25; Smoking End Date: Quit 50 years ago; Second Hand Exposure: No; Do You Dip or Chew Tobacco: No; Tobacco Cessation Education Requested by Patient: No Hx Alcohol Use: Yes (HX OF - CURRENT : VERY LITTLE) Hx Substance Use: No Preferred Language: Malawian Communication Ability: Effective Scowman Required: No Beliefs That Will Affect Care: None marital status: Current Living Situation: Spouse current occupational status: retired How many Children do You have: 2 Other Information That Helps Us Care for You: No Feels Safe at Home: Yes Childhood Exposure to Second-Hand Smoke: No caffeine: Yes Dental Care, Regularly: No Physical Activity Frequency: Does not Exercise Seatbelt Use: always Sunscreen Use: No Assistive Devices: Walker Review of Systems Review of Systems: Denies current fever, chills, headache, changes in vision, hearing, taste, and smell, chest pain, SOB, cough, abdominal pain, nausea, vomiting, diarrhea, hematemesis, melena, dysuria, hematuria, and recent falls. All systems have been reviewed and are otherwise negative. Physical Exam Physical Exam: Physical Exam: General: In no acute distress, stated age, well-nourished, good hygiene HEENT: Normocephalic, atraumatic, no scleral icterus, pupils around round, symmetrical, and reactive to light, moist mucus membranes, trachea midline, no thyromegaly Chest/Pulm: No respiratory distress, symmetrical chest expansion, clear breath sounds throughout Cardiac: RRR, no murmurs noted Abdomen: Negative for ascites and bruising, normoactive bowel sounds, soft, non-tender to palpation throughout Musculoskeletal: LLE currently wrapped and without signs of drainage, patient with intact sensation and motor function of the BL lower extremities Extremities: Radial, dorsalis pedis, and posterior tibial pulses are intact and symmetrical, no edema noted in the BL LE's Skin: Warm, dry, no rashes , lesions, or scars noted Neuro: Alert and oriented to person, place, month, year, and president, no focal defects, CN II-XII tested and intact, finger to nose test negative, no tremors noted Psych: No acute distress, calm and cooperative during the exam Results & Data Results & Data ([facility]) Vital Signs (Past 12 Hours) Vital Signs Temp Pulse Pulse Resp BP Pulse Ox O2 Del Method 06/27/22 15:44 36.4 C L 62 18 146/75 H 96 Room Air 06/27/22 15:21 36.4 C L 59 L 18 124/71 99 06/27/22 14:36 Nasal Cannula 06/27/22 14:25 36.5 C 62 16 116/67 96 Nasal Cannula 06/27/22 13:54 71 16 114/60 94 Nasal Cannula 06/27/22 13:45 36.4 C L 63 17 108/61 95 Nasal Cannula 06/27/22 13:35 65 21 100/80 95 Oxymask 06/27/22 13:25 66 17 111/61 93 Oxymask 06/27/22 13:15 71 20 114/65 96 Oxymask 06/27/22 13:05 69 17 112/58 L 95 Oxymask 06/27/22 12:55 69 23 106/60 97 Oxymask 06/27/22 12:45 36.4 C L 76 19 105/64 99 Oxymask 06/27/22 08:28 36.9 C 69 20 169/90 H 96 Room Air O2 Flow Rate 06/27/22 15:44 06/27/22 15:21 06/27/22 14:36 2 06/27/22 14:25 2 06/27/22 13:54 2 06/27/22 13:45 2 06/27/22 13:35 4 06/27/22 13:25 4 06/27/22 13:15 4 06/27/22 13:05 4 06/27/22 12:55 6 06/27/22 12:45 8 06/27/22 08:28 Laboratory Results Abnormal lab results 06/27/22 06/27/22 Range/Units 08:19 12:51 POC Glucose 144 H 155 H (70-99) mg/dl Diagnostic Findings Knee X-Ray 06/27/22 12:51 XR knee LT 1 or 2V routine CLINICAL HISTORY: Surgical Post Op TECHNIQUE: 2 views of the left knee were obtained. Comparison: Comparison is made to left knee radiographs 09/12/2012 FINDINGS: Patient is status post total knee arthroplasty with expected postsurgical changes including soft tissue swelling and subcutaneous emphysema. No periarticular lucency or hardware fracture is seen. IMPRESSION: Expected postoperative appearance status post placement of total knee arthroplasty. ACT 112: Negative or not required by law. Electronically signed by: Leonard Galaviz M.D. 06/27/2022 1:34 PM ECG Additional Comments: No ECG available at the time of the consult PG Care Time/CCT Total # of Minutes Spent Total Time Spent with Patient: Total time spent is greater than 50% in coordination of care (as documented) at patient's floor/unit and/or counseling patient: Coding [place] [address] Office/OBS Consult Lvl 3 Patient Type Established Medical Decision Making Low Complexity Diagnoses Status post total left knee replacement Z96.652 HTN (hypertension) I10 DM (diabetes mellitus), type 2 E11.9
[2022-06-27] MEDS: ceFAZolin 2000MG 2,000 MG/15 ML SYR IV SCH (17:49)
[2022-06-27] MEDS: INSULIN ASPART PER UNIT SC SCH ×2 (17:52→21:04)
[2022-06-27] MEDS ORDERED: SENNA 8.6 MG TAB PO SCH (21:00)
[2022-06-27] MEDS: ASPIRIN 81 MG ECTAB PO SCH (21:00)
[2022-06-27] MEDS: DOCUSATE SODIUM 100 MG CAP PO SCH (21:01)
[2022-06-27] MEDS ORDERED: PHARMACY GLYCEMIC MGMT CONSULT PRN (21:03)
[2022-06-28] MEDS: INSULIN ASPART PER UNIT SC SCH ×4 (00:01→12:45)
[2022-06-28] MEDS: ceFAZolin 2000MG 2,000 MG/15 ML SYR IV SCH (01:45)
[2022-06-28] MEDS: SODIUM CHLORIDE 0.9% 1000ML 1,000 ML IV SCH (01:50)
[2022-06-28] MEDS ORDERED: HYDROCODONE/ACETAMOPHEN 5/325MG TAB PO PRN (07:00)
[2022-06-28 07:09] LABS: Hematocrit (blood only) 35.5 % (40.1-51.0); Hemoglobin 12.4 g/dl (14.0-18.0); Mean Corpuscular Hemoglobin 30.6 pg (25.0-34.0); Mean Corpuscular Hgb Conc 34.9 g/dL (32.0-36.0); Mean Corpuscular Volume 87.7 fL (80.0-100.0); Mean Platelet Volume 9.7 fL (9.4-12.4); Platelet Count 220 K/uL (130-400); RDW Coefficient of Variation 12.6 % (11.5-14.5); RDW Standard Deviation 40.5 fL (36.4-46.3); Red Blood Count 4.05 M/uL (4.63-6.08); White Blood Count 15.69 K/ul (4.8-10.8)
[2022-06-28 07:32] LABS: BUN Creatinine Ratio 20.7 (10-20); Calcium 8.4 mg/dl (8.5-10.1); Est GFR (African American) 68.6 ml/min; Est GFR (Non-African American) 59.1 ml/min; Potassium 4.4 mmol/L (3.5-5.1)
[2022-06-28 07:40] LABS: Estimated Average Glucose 137 mg/dl; Hemoglobin A1C 6.4 % (4.5-5.6)
[2022-06-28] MEDS: ASPIRIN 81 MG ECTAB PO SCH (08:43)
[2022-06-28] MEDS: DOCUSATE SODIUM 100 MG CAP PO SCH (08:43)
[2022-06-28] MEDS ORDERED: MULTIVITAMIN TAB PO SCH (09:00)
[2022-06-28] MEDS ORDERED: NON-FORMULARY MEDICATION (Alpha Lipoic Acid 100 mg Capsule) PO SCH (09:00)
--- NOTE | 2022-06-28 09:04 | Hospitalist Progress Note ---
Date of Service June 28, 2022 Assessment & Plan (1) Status post total left knee replacement: Plan: POD# 1 s/p Left Total Knee Arthroplasty(Left) utilizing Delacruz & Nephew journey to an en bloc total knee arthroplasty size femur 8 tibia 7 polynine patella 35 oval- Mik Oneal Bartholomew, DO on 06/27 H/h 13.3/38.9 --> 12.4/35.5 acute blood loss anemia following surgery and dilutional from IVF --Had recently had his RIGHT knee done earlier this year, knows expected course and h/h went from 14.8--> 11.8 with last knee operation Pain control/bowel regimen/PT/OT per primary service DVT prophylaxis (ASA 81mg BID) per ortho PT/OT consulted -- dispo pending, however patient dressed and anticipating discharge later today after therapy evaluations completed (2) HTN (hypertension): Plan: Not currently on antihypertensives outpatient Likely related to pain, BP stable 141/64 Monitor/follow up outpatient (3) DM (diabetes mellitus), type 2: Plan: A1C on repeat 6.4 from 6.7 in March. Patient using diet/exercise currently, not on any home meds DM diet while inpatient BSG AC/HS ISS while inpatient with steroids from surgery F/u PCP outpatient and he reports having this value to be repeated outpatient with his PCP in upcoming month or two Plan Dispo per primary/therapy evals but patient doing well and labs stable. hospitalist will sign off at this time. Please call with any questions/concerns Admission and Anticipated Discharge Date Admission Date: June 27, 2022 Subjective Patient evaluated this morning. Doing well. Pain controlled with ordered medications and ice packs. Just had his right knee done earlier this year in the springtime. No fever/chills, no chest pain, increased shortness of breath, abdominal pain, nausea or vomiting. Passing gas but no BM. Hopeful for discharge later today. Review of Systems Review of Systems: All systems reviewed & are unremarkable except as noted in HPI & below Physical Exam Physical Exam: Physical Exam: General: WD/WN obese male, sitting up in recliner, NAD HEENT: head normocephalic, atraumatic, trachea midline, mmm RESP: CTAB, no wheezing/crackles, 94% on RA CV: RRR, no m/r/g, pulses palpable GI: +BS, obese, nontender, no guarding/rigidity : no abdullahi MSK/Neuro: moves all extremities, no focal deficits, LLE with reyes wrap/drain in place, NVI, good strength testing Psych: AOx3, pleasant and cooperative Results & Data Results & Data ([facility]) Vital Signs (Past 12 Hours) Vital Signs Temp Pulse Resp BP BP Pulse Ox O2 Del Method 06/28/22 07:13 36.6 C 64 18 128/69 92 Room Air 06/28/22 03:50 36.5 C 66 20 110/56 L 94 Room Air 06/27/22 23:15 36.5 C 66 20 121/64 96 Room Air Laboratory Results 06/28/22 06/28/22 06/28/22 Range/Units 11:43 08:13 06:41 WBC (4.8-10.8) K/ul RBC (4.63-6.08) M/uL Hgb (14.0-18.0) g/dl Hct (40.1-51.0) % MCV (80.0-100.0) fL MCH (25.0-34.0) pg MCHC (32.0-36.0) g/dL RDW Std Deviation (36.4-46.3) fL RDW Coeff of Yennifer (11.5-14.5) % Plt Count (130-400) K/uL MPV (9.4-12.4) fL Sodium 136 (136-145) mmol/L Potassium 4.4 (3.5-5.1) mmol/L Chloride 106 (98-107) mmol/L Carbon Dioxide 23 (21-32) mmol/L Anion Gap 7 (3-11) BUN 24 H (6-23) mg/dl Creatinine 1.16 (0.6-1.4) mg/dl Est Cr Clr Drug Dosing 69.0 ml/min Est GFR ( Amer) 68.6 ml/min Est GFR (Non-Af Amer) 59.1 ml/min BUN/Creatinine Ratio 20.7 H (10-20) Glucose 175 H (70-99(Fasting)) mg/dl POC Glucose 164 H 171 H (70-99) mg/dl Estimat Average Glucose mg/dl Hemoglobin A1c (4.5-5.6) % Calcium 8.4 L (8.5-10.1) mg/dl 06/28/22 06/28/22 06/28/22 Range/Units 06:41 06:41 03:44 WBC 15.69 H (4.8-10.8) K/ul RBC 4.05 L (4.63-6.08) M/uL Hgb 12.4 L (14.0-18.0) g/dl Hct 35.5 L (40.1-51.0) % MCV 87.7 (80.0-100.0) fL MCH 30.6 (25.0-34.0) pg MCHC 34.9 (32.0-36.0) g/dL RDW Std Deviation 40.5 (36.4-46.3) fL RDW Coeff of Yennifer 12.6 (11.5-14.5) % Plt Count 220 (130-400) K/uL MPV 9.7 (9.4-12.4) fL Sodium (136-145) mmol/L Potassium (3.5-5.1) mmol/L Chloride (98-107) mmol/L Carbon Dioxide (21-32) mmol/L Anion Gap (3-11) BUN (6-23) mg/dl Creatinine (0.6-1.4) mg/dl Est Cr Clr Drug Dosing ml/min Est GFR ( Amer) ml/min Est GFR (Non-Af Amer) ml/min BUN/Creatinine Ratio (10-20) Glucose (70-99(Fasting)) mg/dl POC Glucose 171 H (70-99) mg/dl Estimat Average Glucose 137 mg/dl Hemoglobin A1c 6.4 H (4.5-5.6) % Calcium (8.5-10.1) mg/dl 06/27/22 06/27/22 06/27/22 Range/Units 23:57 20:35 16:54 WBC (4.8-10.8) K/ul RBC (4.63-6.08) M/uL Hgb (14.0-18.0) g/dl Hct (40.1-51.0) % MCV (80.0-100.0) fL MCH (25.0-34.0) pg MCHC (32.0-36.0) g/dL RDW Std Deviation (36.4-46.3) fL RDW Coeff of Yennifer (11.5-14.5) % Plt Count (130-400) K/uL MPV (9.4-12.4) fL Sodium (136-145) mmol/L Potassium (3.5-5.1) mmol/L Chloride (98-107) mmol/L Carbon Dioxide (21-32) mmol/L Anion Gap (3-11) BUN (6-23) mg/dl Creatinine (0.6-1.4) mg/dl Est Cr Clr Drug Dosing ml/min Est GFR ( Amer) ml/min Est GFR (Non-Af Amer) ml/min BUN/Creatinine Ratio (10-20) Glucose (70-99(Fasting)) mg/dl POC Glucose 168 H 253 H 215 H (70-99) mg/dl Estimat Average Glucose mg/dl Hemoglobin A1c (4.5-5.6) % Calcium (8.5-10.1) mg/dl Diagnostic Findings Knee X-Ray 06/27/22 12:51 XR knee LT 1 or 2V routine CLINICAL HISTORY: Surgical Post Op TECHNIQUE: 2 views of the left knee were obtained. Comparison: Comparison is made to left knee radiographs 09/12/2012 FINDINGS: Patient is status post total knee arthroplasty with expected postsurgical changes including soft tissue swelling and subcutaneous emphysema. No periarticular lucency or hardware fracture is seen. IMPRESSION: Expected postoperative appearance status post placement of total knee arthroplasty. ACT 112: Negative or not required by law. Electronically signed by: Leonard Galaviz M.D. 06/27/2022 1:34 PM PG Care Time/CCT Total # of Minutes Spent Total Time Spent with Patient: Total time spent is greater than 50% in coordination of care (as documented) at patient's floor/unit and/or counseling patient: Coding Level of Care Code 84103 Subseq Obs Care Lvl 2 Diagnoses Status post total left knee replacement Z96.652 HTN (hypertension) I10 DM (diabetes mellitus), type 2 E11.9
--- NOTE | 2022-06-28 14:44 | Orthopedic Progress Note ---
Date of Service June 28, 2022 Assessment & Plan (1) Arthritis of knee, left: Plan: POD 1 s/p Left TKA PT/OT Protocols. WBAT. DVT prophylaxis - ASA po bid. SCD's, KAYCEE's Pain management as written. Pt asking Oxycodone be changed to [place]. Mild leukocytosis- Asymptomatic; likely due to preop steroids or surgical stress DC planning - services upon DC. Progressing with PT. Pt seen by Dr Bartholomew this afternoon. Plan for dc to home. Admission and Anticipated Discharge Date Admission Date: June 27, 2022 Subjective Postop day 1 Pt sitting up in bed. No complaints. Pain controlled. Denies SOB, CP, LH. Pt is hoping to go home today. Physical Exam Physical Exam: Dressings C/D/I. Calves are soft, NT. NV intact. Toes mobile. Results & Data ([facility]) Vital Signs (Past 12 Hours) Vital Signs Temp Pulse Resp BP BP Pulse Ox O2 Del Method 06/28/22 14:38 36.5 C 75 18 141/64 H 128/69 94 06/28/22 11:22 36.5 C 75 18 141/64 H 94 Room Air 06/28/22 08:40 Room Air 06/28/22 07:13 36.6 C 64 18 128/69 92 Room Air 06/28/22 03:50 36.5 C 66 20 110/56 L 94 Room Air Laboratory Results Laboratory Results WBC 15.69 K/ul (4.8-10.8) H 06/28/22 06:41 RBC 4.05 M/uL (4.63-6.08) L 06/28/22 06:41 Hgb 12.4 g/dl (14.0-18.0) L 06/28/22 06:41 Hct 35.5 % (40.1-51.0) L 06/28/22 06:41 MCV 87.7 fL (80.0-100.0) 06/28/22 06:41 MCH 30.6 pg (25.0-34.0) 06/28/22 06:41 MCHC 34.9 g/dL (32.0-36.0) 06/28/22 06:41 RDW Std Deviation 40.5 fL (36.4-46.3) 06/28/22 06:41 RDW Coeff of Yennifer 12.6 % (11.5-14.5) 06/28/22 06:41 Plt Count 220 K/uL (130-400) 06/28/22 06:41 MPV 9.7 fL (9.4-12.4) 06/28/22 06:41 Sodium 136 mmol/L (136-145) 06/28/22 06:41 Potassium 4.4 mmol/L (3.5-5.1) 06/28/22 06:41 Chloride 106 mmol/L (98-107) 06/28/22 06:41 Carbon Dioxide 23 mmol/L (21-32) 06/28/22 06:41 Anion Gap 7 (3-11) 06/28/22 06:41 BUN 24 mg/dl (6-23) H 06/28/22 06:41 Creatinine 1.16 mg/dl (0.6-1.4) 06/28/22 06:41 Est Cr Clr Drug Dosing 69.0 ml/min 06/28/22 06:41 Est GFR ( Amer) 68.6 ml/min 06/28/22 06:41 Est GFR (Non-Af Amer) 59.1 ml/min 06/28/22 06:41 BUN/Creatinine Ratio 20.7 (10-20) H 06/28/22 06:41 Glucose 175 mg/dl (70-99(Fasting)) H 06/28/22 06:41 POC Glucose 164 mg/dl (70-99) H 06/28/22 11:43 Estimat Average Glucose 137 mg/dl 06/28/22 06:41 Hemoglobin A1c 6.4 % (4.5-5.6) H 06/28/22 06:41 Calcium 8.4 mg/dl (8.5-10.1) L 06/28/22 06:41 SARS-CoV-2, RNA, NAAT NEGATIVE (NEGATIVE) 06/27/22 08:06 Impressions Knee X-Ray 06/27/22 12:51 XR knee LT 1 or 2V routine CLINICAL HISTORY: Surgical Post Op TECHNIQUE: 2 views of the left knee were obtained. Comparison: Comparison is made to left knee radiographs 09/12/2012 FINDINGS: Patient is status post total knee arthroplasty with expected postsurgical changes including soft tissue swelling and subcutaneous emphysema. No periarticular lucency or hardware fracture is seen. IMPRESSION: Expected postoperative appearance status post placement of total knee arthroplasty. ACT 112: Negative or not required by law. Electronically signed by: Leonard Galaviz M.D. 06/27/2022 1:34 PM
--- NOTE | 2022-06-28 14:49 | Discharge Summary ---
Date of Service June 28, 2022 Admission HPI Per Admitting Provider Lucrecia is an 82-year-old male who presents for preop evaluation prior to left total knee replacement. He states that he is having pain in his knee for many years now which is gradually worsened and is now affecting his daily activities. Is difficulty walking standing and wakes up at night. He has tried previous viscosupplementation injection without much relief. He is also tried oral anti- inflammatories and Tylenol. At this point time is failed conservative measures like to proceed with a left total knee replacement Admission Exam Per Admitting Provider Physical Exam: HT: 5ft 11in WT: 126.6kg Constitutional: WD/WN, vitals as above no acute distress Respiratory: normal respiratory effort, lungs clear to auscultation no respiratory distress, no labored breathing and does not use accessory muscles Cardiovascular: RRR, no murmur, no edema Gastrointestinal (Abdomen): normal bowel sounds, soft, nontender, no hepatosplenomegaly Musculoskeletal: Knee: + knee abnormal to inspection (left knee: ), + effusion (+1 effusion), + limited ROM of knee (ROM 0/3/110), + knee ROM with crepitation, + joint line tenderness (medial joint line) and + Herman's sign positive; no deformity, no skin erythema, no ecchymosis, no valgus laxity, no varus laxity, anterior drawer test negative, Kalpesh's sign negative and pivot shift test negative Principal Diagnosis Left Knee Osteoarthritis Discharge Data Allergies Allergy/AdvReac Type Severity Reaction Status Date / Time No Known Allergies Allergy Verified 06/27/22 08:16 Consultations 06/23/22 11:00 Consult Hospitalist Routine Procedures Performed Operation Date: 06/27/22 10:35 Actual Procedures p Left Total Knee Arthroplasty(Left) - Mik Bartholomew DO Ordered Studies 06/27/22 05:00 US - OR guided needle placemen Routine Hospital Course (1) Arthritis of knee, left: Patient:LUCRECIA ODONNELL Admit Date:06/27/22 MR#:[id number] Att Phy:Mik Bartholomew D.O. Acct ID:[id number] Janet Phy:Idalia Blake MD Date:1940 Fam Phy: Age:82 Location:3E Sex:M Room/Bed:E316-1 cc: ~ *NOTICE TO RECEIVING [employer]/AGENCY This information is strictly Confidential and protected under [place] law. [place] law prohibits you from making any further disclosure of this information unless further disclosure is expressly permitted by the written consent of the person to whom it pertains or is authorized by law. A general authorization for the release of medical or other information is not sufficient for this purpose. Hospital accepts no responsibility if the information is made available to any other person, INCLUDING THE PATIENT. Date of Service June 28, 2022 Assessment & Plan (1) Arthritis of knee, left: Plan: POD 1 s/p Left TKA PT/OT Protocols. WBAT. DVT prophylaxis - ASA po bid. SCD's, KAYCEE's Pain management as written. Pt asking Oxycodone be changed to [place]. Mild leukocytosis- Asymptomatic; likely due to preop steroids or surgical stress DC planning - services upon DC. Progressing with PT. Pt seen by Dr Bartholomew this afternoon. Plan for dc to home. Admission and Anticipated Discharge Date Admission Date: June 27, 2022 Subjective Postop day 1 Pt sitting up in bed. No complaints. Pain controlled. Denies SOB, CP, LH. Pt is hoping to go home today. Physical Exam Physical Exam: Dressings C/D/I. Calves are soft, NT. NV intact. Toes mobile. Results & Data ([facility]) Vital Signs (Past 12 Hours) Vital Signs Temp Pulse Resp BP BP Pulse Ox O2 Del Method 06/28/22 14:38 36.5 C 75 18 141/64 H 128/69 94 06/28/22 11:22 36.5 C 75 18 141/64 H 94 Room Air 06/28/22 08:40 Room Air 06/28/22 07:13 36.6 C 64 18 128/69 92 Room Air 06/28/22 03:50 36.5 C 66 20 110/56 L 94 Room Air Laboratory Results Laboratory Results WBC 15.69 K/ul (4.8-10.8) H 06/28/22 06:41 RBC 4.05 M/uL (4.63-6.08) L 06/28/22 06:41 Hgb 12.4 g/dl (14.0-18.0) L 06/28/22 06:41 Hct 35.5 % (40.1-51.0) L 06/28/22 06:41 MCV 87.7 fL (80.0-100.0) 06/28/22 06:41 MCH 30.6 pg (25.0-34.0) 06/28/22 06:41 MCHC 34.9 g/dL (32.0-36.0) 06/28/22 06:41 RDW Std Deviation 40.5 fL (36.4-46.3) 06/28/22 06:41 D RDW Coeff of Yennifer 12.6 % (11.5-14.5) 06/28/22 06:41 Plt Count 220 K/uL (130-400) 06/28/22 06:41 MPV 9.7 fL (9.4-12.4) 06/28/22 06:41 Sodium 136 mmol/L (136-145) 06/28/22 06:41 Potassium 4.4 mmol/L (3.5-5.1) 06/28/22 06:41 Chloride 106 mmol/L (98-107) 06/28/22 06:41 Carbon Dioxide 23 mmol/L (21-32) 06/28/22 06:41 Anion Gap 7 (3-11) 06/28/22 06:41 BUN 24 mg/dl (6-23) H 06/28/22 06:41 Creatinine 1.16 mg/dl (0.6-1.4) 06/28/22 06:41 Est Cr Clr Drug Dosing 69.0 ml/min 06/28/22 06:41 Est GFR ( Amer) 68.6 ml/min 06/28/22 06:41 Est GFR (Non-Af Amer) 59.1 ml/min 06/28/22 06:41 BUN/Creatinine Ratio 20.7 (10-20) H 06/28/22 06:41 Glucose 175 mg/dl (70-99(Fasting)) H 06/28/22 06:41 POC Glucose 164 mg/dl (70-99) H 06/28/22 11:43 Estimat Average Glucose 137 mg/dl 06/28/22 06:41 Hemoglobin A1c 6.4 % (4.5-5.6) H 06/28/22 06:41 Calcium 8.4 mg/dl (8.5-10.1) L 06/28/22 06:41 SARS-CoV-2, RNA, NAAT NEGATIVE (NEGATIVE) 06/27/22 08:06 Impressions Knee X-Ray 06/27/22 12:51 XR knee LT 1 or 2V routine CLINICAL HISTORY: Surgical Post Op TECHNIQUE: 2 views of the left knee were obtained. Comparison: Comparison is made to left knee radiographs 09/12/2012 FINDINGS: Patient is status post total knee arthroplasty with expected postsurgical changes including soft tissue swelling and subcutaneous emphysema. No periarticular lucency or hardware fracture is seen. IMPRESSION: Expected postoperative appearance status post placement of total knee arthroplasty. ACT 112: Negative or not required by law. Electronically signed by: Leonard Galaviz M.D. 06/27/2022 1:34 PM Total Time Total Time Spent Total Time Spent (In Minutes): 5 Discharge Plan Discharge Items Patient Disposition: Home - Home Health Services Reason For Visit: Primary Osteoarthritis of Left Knee Discharge Diagnosis: Osteoarthritis left knee Activity: Per Instructions section Weightbearing: Left weightbearing Weightbearing Comment: As tolerated with walker Non-emergency contact: Surgeon Call non-emergency contact if: you have any medication questions, your temperature is above 101.5, your wound has increased redness and your wound has increased drainage Follow-up/Referrals: Idalia Blake MD [Primary Care Provider] - Mik Bartholomew DO [Surgeon] - (Follow-up with Dr. Bartholomew in 2 weeks from the day of your surgery for your first postoperative visit.) Diet: Carb Consistent or DM2 Addtl Attending Provider Instructions: ACTIVITY RECOMMENDATIONS: SELF CARE INSTRUCTIONS AFTER TOTAL KNEE REPLACEMENT A. You may need to continue a physical therapy program after discharge from the hospital. There are several options available to you. Your doctor will assist you in selecting the best one for you. 1. An out-patient facility 2 to 3 times a week for therapy or home therapy. 2. Continue working on all exercises taught to you in the hospital. Your goals should be to increase bending of your knee to 90 degrees and beyond and to fully straighten your knee. B. You may progress at your own pace from walking with a walker or crutches to a cane; then to no assistive devices. C. Make walking a part of your daily routine. Be up as much as comfortable with rest periods throughout the day. Rest with leg elevation is very important. Use the ice wrap frequently for the first 3-4 weeks. D. There are no restrictions on activities. You may ride in a car, shop, participate in diesel service journeyman and all social activities. E. Wear the long elastic stockings (KAYCEE hose) 20 hours a day for 2 weeks after surgery. They can be removed several times a day for laundering and for a bath. F. You may shower, no tub baths until cleared by your doctor. SPECIAL CARE INSTRUCTIONS: VERY IMPORTANT TO READ AND REVIEW A. There are a few signs you need to watch for after you are home. Call [facility] if you notice any of the followin. Increased severe knee pain. Some pain is expected especially when you exercise. 2. Increased swelling in your leg or knee; pain or swelling of the calf muscle in either lower leg. 3. Any fluid drainage from the incision. 4. Shortness of breath or chest pain. B. Please call [facility] at if you have any concerns or questions about your operation or recovery. The doctor or his nurse will return your call promptly. C. You must take antibiotics before dental work, bladder, bowel or other surgery. Your doctor will provide you with a permanent care to carry describing this precaution. IMPORTANT: * REMEMBER TO TAKE ASPIRIN, 81 MG, TWICE DAILY FOR 4 WEEKS UNLESS OTHERWISE DIRECTED. THIS IS YOUR BLOOD THINNER. * HIGH RISK PATIENTS MAY BE PRESCRIBED A STRONGER BLOOD THINNER. THIS WILL BE PROVIDED AT DISCHARGE. * CALL IF INCREASED PAIN, REDNESS, DRAINAGE OR FEVER GREATER THAT 101. * WEAR KAYCEE HOSE 20 HOURS PER DAY FOR 2 WEEKS. * CANDICE Dressing - This is a large suction dressing covering your incision. This will help pull any excess drainage from the wound and allow your incision to heal properly. You may shower with this if you can keep the unit outside of the shower. If any bleeding or leakage is noted please call your doctor's office. This will remain on your incision for 7 days and then should be removed. This can be done yourself or by the home nursing staff if applicable. The entire unit is disposable once removed. Once removed, keep incision clean and dry. If redness or drainage is noted, please call your surgeon. . FOLLOW UP VISIT: If appointment is not already scheduled: Please call [facility] to make a follow-up appointment for 2 weeks after your surgery at . Stand-Alone Forms: My [facility] Hotelements, Smoking Cessation Medications and DC Order Prescriptions: New aspirin 81 mg Tablet,Delayed Release (Dr/Ec) 81 mg PO BID 30 Days Qty: 60 0RF acetaminophen [Tylenol Extra Strength] 500 mg Tablet 1,000 mg PO Q8H 14 Days Qty: 84 0RF polyethylene glycol 3350 [Miralax] 17 gram powder in packet 17 g PO DAILY PRN (Reason: constipation) Qty: 5 0RF cefadroxil 500 mg capsule 500 mg PO BID Qty: 28 1RF hydrocodone-acetaminophen 5-325 mg tablet 1 - 2 tab PO Q6H MDD 8 tabs PRN (Reason: pain) Qty: 30 0RF Continued alpha lipoic acid 100 mg Capsule 100 mg PO QAM vit A-vit C-vit T-vhts-jhuirs [id number] [id number] Tablet 1 tab PO QAM True Prostate capsule See Rx Instructions .ROUTE .COMPLEX Rx Instructions: as directed Discharge Orders: Discharge Order (Routine); Ordered 06/28/22 Ordered By: Sarabjit Espino/Other Patient Handouts: Managing Type 2 Diabetes Admission Data Admit Date/Time: 06/27/22 12:51 Attending Provider: Mik Bartholomew Admit Provider: Mik Bartholomew Primary Care Provider: Idalia Blake Other Providers: Jeremy Paz Thomas E. Other Interventions: Discharge Summary Assessment (RN) Last Done: 06/28/22 14:38
== END 2022-06-28 15:01 | disposition home health service (06) ==
LOC: 3E 07:45 → ASU 07:45

== ENCOUNTER 2024-03-03 18:42 | Observation (INO) ==
[2024-03-03] MEDS: ADENOSINE IV SOLN 3 MG/ML 2 ML VIAL IV ONE (19:18)
--- NOTE | 2024-03-03 19:24 | Emergency Department Note ---
Impression & Plan Chest pain, Dyspnea, Dysrhythmia ED Provider Note ED Provider Note NAME: LUCRECIA ODONNELL AGE:83 SEX: Male : 1940 ARRIVES VIA: Private vehicle INFORMANT: Patient ED PROVIDER(s): Steph Nicholson DO CHIEF COMPLAINT: Chest pain, shortness of breath HPI: This is an 83-year-old male presents emergency department due to concern for intermittent chest pain, shortness of breath, dizziness which began on Sunday morning. Patient denies any sense of palpitations however upon presentation into triage she was noted to have tachycardia and was immediately placed on a protocol room and an EKG obtained. Patient denies any recent fevers, chills, or illness. No recent change in medications. He denies any lower extremity edema. Patient denies any cardiac history. PAST MEDICAL HISTORY:See Below PAST SURGICAL HISTORY:See Below FAMILY HISTORY:See Below SOCIAL HISTORY:See Below HOME MEDICATIONS:See Below ALLERGIES:See Below VITALS:See Below PHYSICAL EXAMINATION: GENERAL: alert, well appearing, well nourished, no distress, non-toxic EYE EXAM: normal conjunctiva, PERRL and EOM's grossly intact OROPHARYNX: no exudate, no erythema, lips, buccal mucosa, and tongue normal and mucous membranes are moist NECK: supple, no nuchal rigidity, no adenopathy, non-tender LUNGS: Clear to auscultation. Normal chest wall mechanics, no w/r/r HEART: no murmurs, S1 normal and S2 normal ABDOMEN: abdomen soft, non-tender, normo-active bowel sounds, no masses, no rebound or guarding. BACK: Back is symmetrical on inspection SKIN: no rashes, petechiae, orbruising UPPER EXTREMITIES: upper extremities are grossly normal. FROM, nml pulses b/l. LOWER EXTREMITIES: No pitting edema. FROM, nml pulses b/l. NEURO EXAM: Normal sensorium, cranial nerves II-XII grossly intact, normal speech, no facial droop,nogross weakness of arms, no gross weakness of legs. Gross sensation intact. No ataxia. Vital Signs: reviewed and remarkable Differential Diagnosis: acute coronary syndrome, pericarditis, pulmonary embolus, aortic dissection, pneumonia, pneumothorax, musculoskeletal pain, shingles, GERD, GI bleed, as well as others were considered MEDICAL DECISION MAKING: This is an 83-year-old male who presents emergency department due to concern for intermittent chest pain, shortness of breath, and palpitations which began Sunday morning. Patient noted to be tachycardic here and was immediately brought back to a room. Initial rhythm suggestive of A-fib/a flutter in the upper 140s, other vital signs stable. Vagal maneuver tried without success. He was given 6 mg of adenosine which did break the with him and initially appeared to be underlying atrial fibrillation he then converted to a normal sinus rhythm. Labs drawn and sent, IV established, EKG and chest ray performed bedside interpreted me and patient monitored on telemetry. Patient did have recurrent episode of tachycardia with symptoms. Labs reassuring. 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 Patient was hydrated as a precaution. Due to concern for recurrent episodes and no prior cardiac history, case discussed with hospitalist team for additional evaluation and management. Consultation(s): ER Treatment Provided: See below 2114: Patient with recurrent episode of tachycardia up to 147. While medication was being drawn up patient broke again down to normal sinus rhythm in the 70s. Diagnostics Interpreted By Me: -ECG: Tachycardia at 154, leftward axis, normal intervals, nonspecific ST/T wave changes -Cardiac Monitoring: An order was placed for continuous cardiac monitoring. The monitor shows a rate of 82 with normal sinus rhythm. -Laboratory studies: As stated above and show below. -Imaging studies: X-ray Chest: A single view study of the chest was reviewed and was negative for cardiomegaly, focal infiltrate, effusion, pulmonary edema, or wide mediastinum. Triage Nursing Note Reviewed Prior/Outside Records Reviewed -prior stress echo reviewed Past Med/Surg History Problem List (Updated 03/04/24 @ 09:[address]) Paroxysmal SVT (supraventricular tachycardia) Hyperglycemia due to type 2 diabetes mellitus Acute kidney injury Obesity (BMI 30-39.9) Supraventricular tachycardia Dysrhythmia (Acute) Dyspnea (Acute) Chest pain (Acute) Carpal tunnel syndrome on both sides Numbness and tingling of hand Coronary artery calcification seen on CT scan Encounter for immunization Status post total left knee replacement Arthritis of knee, left Allergic rhinitis (Acute) Premature ventricular contractions (Acute) Cerumen impaction (Chronic) Routine health maintenance (Chronic) Elevated LDL cholesterol level (Chronic) Decreased hearing of left ear (Acute) Right knee pain (Chronic) Elevated hemoglobin A1c Arthritis of right knee Toenail deformity Hearing loss Obesity Pre-op evaluation Encounter for pre-operative examination Counseled about COVID-19 virus infection Hx of total knee arthroplasty HTN (hypertension) PCP monitoring, no medications RLS (restless legs syndrome) DM (diabetes mellitus), type 2 (Chronic) Medical History (Updated 03/04/24 @ 09:[address]) History of COVID-19 Dx 11/2021--asymptomatic (tested for preop) Osteoarthritis Borderline high cholesterol Surgical History History of left knee surgery History of arthroplasty of right knee Right TKA (12/07/21): SAB at L3/4 + PNB at [facility]. No issues noted per post-op anesthesia progress note. History of tooth extraction History of hernia surgery right inguinal History of colonoscopy History of thumb surgery Left (had metal removed) History of arthroscopy of right knee Family History Family/Other No problems noted. Mother Family history of diabetes mellitus Other Family history of colon cancer in father No family history of adverse response to anesthesia Denies family history of Ovarian cancer Prostate cancer Clotting disorder Myocardial infarction Breast cancer Social History Smoking Status: Never smoker Tobacco Type: Cigarettes packs per day: 1; Second Hand Exposure: No; Do You Dip or Chew Tobacco: No; Hx Alcohol Use: Yes Hx Substance Use: No Preferred Language: Nepalese Communication Ability: Effective Hearing Ability: Hard of Hearing Store Keeper Required: No Beliefs That Will Affect Care: None marital status: Current Living Situation: Spouse current occupational status: retired How many Children do You have: 2 Feels Safe at Home: Yes Childhood Exposure to Second-Hand Smoke: No Diet: regular caffeine: Yes Dental Care, Regularly: No Physical Activity Frequency: Does not Exercise Seatbelt Use: always Sunscreen Use: No Assistive Devices: None Allergies Allergies Allergy/AdvReac Type Severity Reaction Status Date / Time No Known Allergies Allergy Verified 03/04/24 00:18 Home Meds Home Medications Medication Instructions Recorded Confirmed True Prostate See Rx Instructions .Route 05/17/21 03/04/24 .COMPLEX as directed alpha lipoic acid 100 mg capsule 100 mg PO QAM 05/17/21 03/04/24 aspirin 81 mg tablet,delayed 81 mg PO QAM 04/02/23 03/04/24 release (Adult Low Dose Aspirin) Prevagen 1 tab PO QAM 03/04/24 03/04/24 metformin 500 mg tablet 500 mg PO QAM 03/04/24 03/04/24 vit A 7,160 unit-vit C 113 mg-vit 1 tab PO QAM 03/04/24 03/04/24 E 100 [id number] tablet Results & Data (ED) Vital Signs Vital Signs - 24 hr 03/04/24 00:00 03/04/24 00:30 Pulse Rate 66 70 Respiratory Rate 20 20 Blood Pressure 138/80 158/87 H Blood Pressure Mean 87 127 Pulse Oximetry 93 93 Oxygen Delivery Method Room Air Room Air Laboratory Data 03/04/24 03:44 03/04/24 03:44 Lab Results 03/03/24 Range/Units 19:03 WBC 8.18 (4.8-10.8) K/ul RBC 4.70 (4.70-6.10) M/uL Hgb 14.5 (14.0-18.0) g/dl Hct 41.9 L (42.0-52.0) % MCV 89.1 (80.0-100.0) fL MCH 30.9 (25.0-34.0) pg MCHC 34.6 (32.0-36.0) g/dL RDW Std Deviation 41.4 (36.4-46.3) fL RDW Coeff of Yennifer 12.6 (11.5-14.5) % Plt Count 268 (130-400) K/uL MPV 9.8 (9.4-12.4) fL Immature Gran % (Auto) 0.2 % Neut % (Auto) 71.6 % Lymph % (Auto) 15.4 % Tripp % (Auto) 8.7 % Eos % (Auto) 3.4 % Baso % (Auto) 0.7 % Neut # (Auto) 5.85 (1.40-6.50) K/uL Lymph # (Auto) 1.26 (1.20-3.40) K/uL Tripp # (Auto) 0.71 H (0.11-0.59) K/uL Eos # (Auto) 0.28 (0.00-0.50) K/uL Baso # (Auto) 0.06 (0.00-0.20) K/uL Immature Gran # (Auto) 0.02 (0.01-0.20) K/uL PT 10.5 (9.0-12.0) Seconds INR 1.0 (0.9-1.1) APTT 25 (21-31) Seconds PTT Ratio 0.9 Sodium 141 (136-145) mmol/L Potassium 4.4 (3.5-5.1) mmol/L Chloride 107 (98-107) mmol/L Carbon Dioxide 24 (21-32) mmol/L Anion Gap 10 (3-11) BUN 23 (6-23) mg/dl Creatinine 1.60 H (0.6-1.4) mg/dl Est Cr Clr Drug Dosing 49.3 ml/min Est GFR ( Amer) 46.1 ml/min Est GFR (Non-Af Amer) 39.8 ml/min BUN/Creatinine Ratio 14.4 (10-20) Glucose 181 H (70-99(Fasting)) mg/dl Calcium 9.8 (8.6-10.3) mg/dl Total Bilirubin 0.5 (0.2-1.0) mg/dl AST 17 (13-39) U/L ALT 16 (7-52) U/L Alkaline Phosphatase 73 (34-104) U/L Troponin I High Sens 10.4 (0-20) pg/ml Total Protein 6.7 (6.0-8.3) gm/dl Albumin 4.2 (3.4-5.0) gm/dl Globulin 2.5 (2.5-4.0) gm/dl Albumin/Globulin Ratio 1.7 (0.9-2) TSH 4.594 H (0.300-4.500) uIu/ml Free T4 0.71 (0.61-1.60) ng/dl Anaplasma Smear See Comment Babesia Smear See Comment Lyme Disease Screen Negative (Negative) Administered Medications Aspirin (Aspirin 81 Mg Ectab) [facility] [place] Stop: 04/03/24 08:59 Last Admin: 03/04/24 08:40 Dose: 81 mg Documented By: ALESSIO Metoprolol Tartrate (Metoprolol Tartrate 25 Mg Tab) 25 mg PO TID RICARDO Stop: 04/03/24 11:19 Last Admin: 03/04/24 20:21 Dose: 25 mg Documented By: Admin: 03/04/24 15:32 Dose: Not Given Documented By: Admin: 03/04/24 12:38 Dose: 25 mg Documented By: SHAMIKA Discontinued Medications Adenosine (Adenosine Iv Soln 3 Mg/Ml 2 Ml Vial) Confirm Administered Dose 12 mg IV .STK-MED ONE Stop: 03/03/24 19:10 Last Admin: 03/03/24 19:18 Dose: 6 mg Documented By: IDD Diltiazem HCl (Diltiazem Hcl 5 Mg/Ml 5 Ml Vial) 10 mg IV NOW STA Stop: 03/03/24 21:11 Last Admin: 03/03/24 21:15 Dose: Not Given Documented By: KMS Sodium Chloride (Nss) 1,000 mls @ 100 mls/hr IV .Q10H RICARDO Stop: 03/04/24 15:44 Last Infusion: 03/04/24 16:17 Dose: Infused Documented By: Admin: 03/04/24 06:00 Dose: 100 mls/hr Documented By: JAY Ioversol (Optiray 320 125ml) 119 ml IV ONCE ONE Stop: 03/03/24 21:58 Last Admin: 03/03/24 21:57 Dose: 119 ml Documented By: [facility] Imaging Data Radiologist's Impression: Chest CTA 03/03/24 20:33 Exam(s): CTA CHEST IV Amt: 119 cc opti 320 EXAM: CT Angiography Chest With Intravenous Contrast CLINICAL HISTORY: Reason for exam: PE. TECHNIQUE: Axial computed tomographic angiography images of the chest with intravenous contrast. Automated exposure control was utilized for the study. A dose lowering technique was utilized adhering to the principles of ALARA. MIP reconstructed images were created and reviewed. COMPARISON: No relevant prior studies available. FINDINGS: Pulmonary arteries: Unremarkable. No pulmonary embolism. Aorta: Atherosclerotic changes of the aorta. No thoracic aortic aneurysm. Lungs: Unremarkable. No mass. No consolidation. Pleural space: Unremarkable. No significant effusion. No pneumothorax. Heart: Cardiomegaly. No significant pericardial effusion. No evidence of RV dysfunction. Bones/joints: Degenerative changes of the spine. No acute fracture. No dislocation. Soft tissues: Unremarkable. Lymph nodes: Unremarkable. No enlarged lymph nodes. IMPRESSION: No acute findings in the visualized arteries of the chest. Electronically signed by: Jorge A Jhaveri MD 03/03/24 23:51 PM Discharge Plan Visit Data Chief Complaint: Chest Pain Stated Complaint: CHEST PAINS ED Provider: Steph Nicholson Discharge Problem: Chest pain, Dyspnea, Dysrhythmia Patient Disposition: Admitted As Inpatient Discharge Instructions Interventions: ED Discharge Assessment Last Done: 03/04/24 01:51
[2024-03-03 19:42] LABS: Basophils # (auto) 0.06 K/uL (0.00-0.20); Basophils % (auto) 0.7 %; Eosinophils # (auto) 0.28 K/uL (0.00-0.50); Eosinophils % (auto) 3.4 %; Hematocrit (blood only) 41.9 % (42.0-52.0); Hemoglobin 14.5 g/dl (14.0-18.0); Immature Granulocytes # (auto) 0.02 K/uL (0.01-0.20); Immature Granulocytes % (auto) 0.2 %; Lymphocytes # (auto) 1.26 K/uL (1.20-3.40); Lymphocytes % (auto) 15.4 %; Mean Corpuscular Hemoglobin 30.9 pg (25.0-34.0); Mean Corpuscular Hgb Conc 34.6 g/dL (32.0-36.0); Mean Corpuscular Volume 89.1 fL (80.0-100.0); Mean Platelet Volume 9.8 fL (9.4-12.4); Monocytes # (auto) 0.71 K/uL (0.11-0.59); Monocytes % (auto) 8.7 %; Neutrophils # (auto) 5.85 K/uL (1.40-6.50); Neutrophils % (auto) 71.6 %; Platelet Count 268 K/uL (130-400); RDW Coefficient of Variation 12.6 % (11.5-14.5); RDW Standard Deviation 41.4 fL (36.4-46.3); White Blood Count 8.18 K/ul (4.8-10.8)
[2024-03-03 19:50] LABS: Albumin Globulin Ratio 1.7 (0.9-2); Albumin Level 4.2 gm/dl (3.4-5.0); BUN Creatinine Ratio 14.4 (10-20); Bilirubin,Total 0.5 mg/dl (0.2-1.0); Calcium 9.8 mg/dl (8.6-10.3); Creatinine Clr Calc Pharmacy 49.3 ml/min; Est GFR (African American) 46.1 ml/min; Est GFR (Non-African American) 39.8 ml/min; Globulin 2.5 gm/dl (2.5-4.0); Potassium 4.4 mmol/L (3.5-5.1); Total Protein 6.7 gm/dl (6.0-8.3)
[2024-03-03 19:58] LABS: Troponin I High Sensitivity 10.4 pg/ml (0-20)
[2024-03-03 20:00] LABS: Partial Thromboplastin Ratio 0.9; Partial Thromboplastin Time 25 Seconds (21-31); Prothrombin Time 10.5 Seconds (9.0-12.0)
[2024-03-03 21:12] LABS: Thyroid Stimulating Hormone 4.594 uIu/ml (0.300-4.500)
[2024-03-03] MEDS: dilTIAZem HCl 5 MG/ML 5 ML VIAL IV STA (21:15)
[2024-03-03] MEDS: OPTIRAY 320 125ml IV ONE (21:57)
[2024-03-03 22:30] LABS: T4 Free Thyroxine 0.71 ng/dl (0.61-1.60)
--- NOTE | 2024-03-03 23:52 | CT Scan Report ---
Exam(s): CTA CHEST IV Amt: 119 cc opti 320 EXAM: CT Angiography Chest With Intravenous Contrast CLINICAL HISTORY: Reason for exam: PE. TECHNIQUE: Axial computed tomographic angiography images of the chest with intravenous contrast. Automated exposure control was utilized for the study. A dose lowering technique was utilized adhering to the principles of ALARA. MIP reconstructed images were created and reviewed. COMPARISON: No relevant prior studies available. FINDINGS: Pulmonary arteries: Unremarkable. No pulmonary embolism. Aorta: Atherosclerotic changes of the aorta. No thoracic aortic aneurysm. Lungs: Unremarkable. No mass. No consolidation. Pleural space: Unremarkable. No significant effusion. No pneumothorax. Heart: Cardiomegaly. No significant pericardial effusion. No evidence of RV dysfunction. Bones/joints: Degenerative changes of the spine. No acute fracture. No dislocation. Soft tissues: Unremarkable. Lymph nodes: Unremarkable. No enlarged lymph nodes. IMPRESSION: No acute findings in the visualized arteries of the chest. Electronically signed by: Jorge A Jhaveri MD 03/03/24 23:51 PM
--- NOTE | 2024-03-04 01:00 | History & Physical Report ---
Date of Service March 04, 2024 Assessment & Plan (1) Supraventricular tachycardia: (2) DM (diabetes mellitus), type 2: (3) Obesity (BMI 30-39.9): (4) Acute kidney injury: (5) Hyperglycemia due to type 2 diabetes mellitus: Plan Supraventricular tachycardia/history of hypertension- EKG with heart rate 154 Patient was given adenosine 12 mg IV, then diltiazem 10 mg IV push, with heart rate maintaining in the 80s The patient will be admitted to telemetry for serial cardiac enzymes, serial EKG's, cardiac rhythm monitoring and a 2-D echocardiogram with Dopplers. Continue aspirin 81 mg daily Most recent vital signs show pulse 60, and blood pressure 117/78 Consult cardiology Tickborne studies for Lyme negative, anaplasmosis and babesiosis smears negative, with antibodies pending, and ehrlichiosis antibodies pending TSH 4.594 Potassium 4.4 and magnesium 1.8 Volume depletion, as indicated by SYLVESTER, may be contributing to SVT Acute kidney injury- Creatinine 1.60 on admission, with base 1.16 Placed on NSS at 100 mL/h x 1 L Repeat laboratories after rehydration Hyperglycemia due to diabetes mellitus- Glucose 181 on admission Check hemoglobin A1c Hold on Accu-Cheks for now History of Present Illness Chief Complaint: The patient presents to the emergency department with complaint of intermittent pain across his chest over the past 4 days, accompanied by shortness of breath and intermittent dizziness. 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 He thought it was just because he was anxious. His , who is in the room with him, helps to relay the extent of his symptoms. Primary Care Provider: Idalia Blake MD The patient is an 83-year-old male with past medical history including carpal tunnel syndrome, bilateral TKAs, allergic rhinitis, PVCs, hyperlipidemia, obesity, hypertension, RLS and diabetes mellitus type 2. Upon arrival to the emergency department patient was noted to complain of pain across his chest, and he was immediately brought into the emergency department for assessment. He was found to be in a supraventricular tachycardia, with EKG noting a heart rate 154. He is given adenosine 12 mg by the ED, followed by diltiazem 10 mg IV, with return of heart rate to the 80s. The symptoms that he presented with to the ED this evening, were similar to the ones he had over the past 4 days. Allergies Allergy/AdvReac Type Severity Reaction Status Date / Time No Known Allergies Allergy Verified 03/04/24 00:18 Home Medications Medication Instructions Recorded Confirmed Type True Prostate See Rx Instructions .Route 05/17/21 03/04/24 History .COMPLEX as directed alpha lipoic acid 100 mg capsule 100 mg PO QAM 05/17/21 03/04/24 History aspirin 81 mg tablet,delayed 81 mg PO QAM 04/02/23 03/04/24 History release (Adult Low Dose Aspirin) Prevagen 1 tab PO QAM 03/04/24 03/04/24 History metformin 500 mg tablet 500 mg PO QAM 03/04/24 03/04/24 History vit A 7,160 unit-vit C 113 mg-vit 1 tab PO QAM 03/04/24 03/04/24 History E 100 [id number] tablet Past Med/Surg History Problem List (Updated 03/04/24 @ 05:34 by Rahul Leon MD) Hyperglycemia due to type 2 diabetes mellitus Acute kidney injury Obesity (BMI 30-39.9) Supraventricular tachycardia Dysrhythmia (Acute) Dyspnea (Acute) Chest pain (Acute) Carpal tunnel syndrome on both sides Numbness and tingling of hand Coronary artery calcification seen on CT scan Encounter for immunization Status post total left knee replacement Arthritis of knee, left Allergic rhinitis (Acute) Premature ventricular contractions (Acute) Cerumen impaction (Chronic) Routine health maintenance (Chronic) Elevated LDL cholesterol level (Chronic) Decreased hearing of left ear (Acute) Right knee pain (Chronic) Elevated hemoglobin A1c MOST RECENT : 6.2 Arthritis of right knee Toenail deformity Hearing loss Obesity Pre-op evaluation Encounter for pre-operative examination Counseled about COVID-19 virus infection Hx of total knee arthroplasty HTN (hypertension) PCP monitoring, no medications RLS (restless legs syndrome) DM (diabetes mellitus), type 2 (Chronic) Diet controlled/under surveillance by PCP Medical History History of COVID-19 RLS (restless legs syndrome) Obesity (BMI 30-39.9) HTN (hypertension) Osteoarthritis Borderline high cholesterol DM (diabetes mellitus), type 2 Surgical History History of left knee surgery History of arthroplasty of right knee History of tooth extraction History of hernia surgery History of colonoscopy History of thumb surgery History of arthroscopy of right knee Family History Family/Other No problems noted. 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 Beliefs That Will Affect Care: None marital status: Current Living Situation: Spouse current occupational status: retired How many Children do You have: 2 Other Information That Helps Us Care for You: No Feels Safe at Home: Yes Safety Concerns: Feels Safe At This Time Childhood Exposure to Second-Hand Smoke: No Diet: regular caffeine: Yes Dental Care, Regularly: No Physical Activity Frequency: Does not Exercise Seatbelt Use: always Sunscreen Use: No Assistive Devices: None Review of Systems Review of Systems: The patient denies palpitations, cough, lower extremity swelling, sore throat, fevers, chills, sweats, nausea, vomiting, diarrhea , constipation, abdominal pain, pelvic pain, blood in urine or stool, dysuria, urinary frequency or urgency, lightheadedness, dizziness, headache, memory loss, loss of consciousness, rash, abnormal bruising or bleeding, imbalance, focal or generalized weakness, numbness or tingling in arms or legs, generalized arthralgias or myalgias, back or neck pain, or night sweats. The review of systems is otherwise negative other than for that already noted a efren, and at least 10 systems have been reviewed. Physical Exam Physical Exam: The patient is awake, alert and oriented 3, well developed and well nourished, normocephalic and atraumatic, lying in bed and in no acute distress. HEENT--PERRL, EOMI, mucous membranes and oropharynx dry. Neck--supple. No JVD. No bruits. Thyroid normal, trachea midline, no adenopathy. Heart--normal S1 and S2. No murmurs, rubs or gallops. Lungs--clear bilaterally, no respiratory distress, no accessory muscle use. Abdomen--normal bowel sounds and soft. Nontender. Nondistended. Morbidly obese Extremities--no cyanosis or clubbing. No edema. There are good distal pulses b/l. Dermatologic--normal skin turgor, normal color, no abnormal lymph nodes, no rash. Neurologic--cranial nerves II through XII grossly intact. Rheumatologic--normal range of motion. Psychiatric--normal affect. Results & Data Results & Data Vital Signs (Past 12 Hours) Vital Signs Temp Pulse Resp BP Pulse Ox O2 Del Method 03/03/24 23:00 63 18 92 03/03/24 23:00 137/75 03/03/24 23:00 137/75 03/03/24 23:00 137/75 03/03/24 23:00 137/75 03/03/24 23:00 137/75 03/03/24 23:00 137/75 03/03/24 23:00 137/75 03/03/24 23:00 137/75 03/03/24 23:00 137/75 03/03/24 23:00 137/75 03/03/24 23:00 137/75 03/03/24 22:36 63 12 92 03/03/24 22:30 125/76 03/03/24 22:30 125/76 03/03/24 22:30 125/76 03/03/24 22:30 125/76 03/03/24 22:30 125/76 03/03/24 22:30 125/76 03/03/24 22:30 125/76 03/03/24 22:30 125/76 03/03/24 22:30 125/76 03/03/24 22:30 125/76 03/03/24 22:21 64 19 92 03/03/24 22:18 64 14 93 03/03/24 22:04 142/70 H 03/03/24 22:04 142/70 H 03/03/24 22:04 142/70 H 03/03/24 22:04 142/70 H 03/03/24 22:04 142/70 H 03/03/24 22:04 142/70 H 03/03/24 22:04 142/70 H 03/03/24 22:04 142/70 H 03/03/24 22:04 142/70 H 03/03/24 22:04 142/70 H 03/03/24 22:04 142/70 H 03/03/24 22:03 71 23 03/03/24 21:48 66 23 92 03/03/24 21:45 140/75 03/03/24 21:45 140/75 03/03/24 21:39 67 19 91 03/03/24 21:30 125/72 03/03/24 21:30 125/72 03/03/24 21:30 125/72 03/03/24 21:30 125/72 03/03/24 21:30 125/72 03/03/24 21:30 67 20 89 L 03/03/24 21:27 67 17 90 03/03/24 21:18 73 23 91 03/03/24 21:16 74 03/03/24 21:15 154/78 H 03/03/24 21:15 154/78 H 03/03/24 21:15 154/78 H 03/03/24 21:15 154/78 H 03/03/24 21:14 94 H 03/03/24 21:14 144 H 03/03/24 21:00 132/76 03/03/24 20:51 69 20 93 03/03/24 20:45 129/75 03/03/24 20:45 129/75 03/03/24 20:45 129/75 03/03/24 20:45 129/75 03/03/24 20:45 129/75 03/03/24 20:45 129/75 03/03/24 20:45 129/75 03/03/24 20:42 70 20 93 03/03/24 20:30 69 17 92 03/03/24 20:30 118/76 03/03/24 20:30 118/76 03/03/24 20:30 118/76 03/03/24 20:30 118/76 03/03/24 20:30 118/76 03/03/24 20:30 118/76 03/03/24 20:30 118/76 03/03/24 20:30 118/76 03/03/24 20:15 120/73 03/03/24 19:34 Nasal Cannula 03/03/24 19:34 Nasal Cannula 03/03/24 19:31 151/77 H 03/03/24 19:31 151/77 H 03/03/24 19:30 79 23 95 03/03/24 19:18 82 19 95 03/03/24 19:18 168/97 H 03/03/24 19:18 168/97 H 03/03/24 19:18 168/97 H 03/03/24 19:17 78 03/03/24 19:12 148 H 32 H 96 03/03/24 19:09 149 H 19 94 03/03/24 19:06 108/83 03/03/24 19:06 108/83 03/03/24 19:06 108/83 03/03/24 19:06 108/83 03/03/24 19:06 153 H 03/03/24 18:50 36.8 C 148 H 20 108/71 95 Room Air Laboratory Results Laboratory Results WBC 5.91 K/ul (4.8-10.8) 03/04/24 03:44 RBC 4.17 M/uL (4.70-6.10) L 03/04/24 03:44 Hgb 12.8 g/dl (14.0-18.0) L 03/04/24 03:44 Hct 37.8 % (42.0-52.0) L 03/04/24 03:44 MCV 90.6 fL (80.0-100.0) 03/04/24 03:44 MCH 30.7 pg (25.0-34.0) 03/04/24 03:44 MCHC 33.9 g/dL (32.0-36.0) 03/04/24 03:44 RDW Std Deviation 41.5 fL (36.4-46.3) 03/04/24 03:44 RDW Coeff of Yennifer 12.7 % (11.5-14.5) 03/04/24 03:44 Plt Count 218 K/uL (130-400) 03/04/24 03:44 MPV 9.6 fL (9.4-12.4) 03/04/24 03:44 Immature Gran % (Auto) 0.5 % 03/04/24 03:44 Neut % (Auto) 62.3 % 03/04/24 03:44 Lymph % (Auto) 21.2 % 03/04/24 03:44 [place] % (Auto) 9.8 % 03/04/24 03:44 Eos % (Auto) 5.4 % 03/04/24 03:44 Baso % (Auto) 0.8 % 03/04/24 03:44 Neut # (Auto) 3.68 K/uL (1.40-6.50) 03/04/24 03:44 Lymph # (Auto) 1.25 K/uL (1.20-3.40) 03/04/24 03:44 [place] # (Auto) 0.58 K/uL (0.11-0.59) 03/04/24 03:44 Eos # (Auto) 0.32 K/uL (0.00-0.50) 03/04/24 03:44 Baso # (Auto) 0.05 K/uL (0.00-0.20) 03/04/24 03:44 Immature Gran # (Auto) 0.03 K/uL (0.01-0.20) 03/04/24 03:44 PT 10.5 Seconds (9.0-12.0) 03/03/24 19:03 INR 1.0 (0.9-1.1) 03/03/24 19:03 APTT 25 Seconds (21-31) 03/03/24 19:03 PTT Ratio 0.9 03/03/24 19:03 Sodium 140 mmol/L (136-145) 03/04/24 03:44 Potassium 4.2 mmol/L (3.5-5.1) 03/04/24 03:44 Chloride 108 mmol/L (98-107) H 03/04/24 03:44 Carbon Dioxide 25 mmol/L (21-32) 03/04/24 03:44 Anion Gap 7 (3-11) 03/04/24 03:44 BUN 19 mg/dl (6-23) 03/04/24 03:44 Creatinine 1.21 mg/dl (0.6-1.4) D 03/04/24 03:44 Est Cr Clr Drug Dosing 65.2 ml/min 03/04/24 03:44 Est GFR ( Amer) 64.7 ml/min 03/04/24 03:44 Est GFR (Non-Af Amer) 55.8 ml/min 03/04/24 03:44 BUN/Creatinine Ratio 15.7 (10-20) 03/04/24 03:44 Glucose 135 mg/dl (70-99(Fasting)) H 03/04/24 03:44 Calcium 9.0 mg/dl (8.6-10.3) 03/04/24 03:44 Phosphorus 4.6 mg/dl (2.5-4.9) 03/04/24 03:44 Magnesium 1.8 mg/dl (1.7-2.4) 03/04/24 Unknown Total Bilirubin 0.5 mg/dl (0.2-1.0) 03/03/24 19:03 AST 17 U/L (13-39) 03/03/24 19:03 ALT 16 U/L (7-52) 03/03/24 19:03 Alkaline Phosphatase 73 U/L (34-104) 03/03/24 19:03 Troponin I High Sens 10.4 pg/ml (0-20) 03/03/24 19:03 Total Protein 6.7 gm/dl (6.0-8.3) 03/03/24 19:03 Albumin 3.5 gm/dl (3.4-5.0) 03/04/24 03:44 Globulin 2.5 gm/dl (2.5-4.0) 03/03/24 19:03 Albumin/Globulin Ratio 1.7 (0.9-2) 03/03/24 19:03 TSH 4.594 uIu/ml (0.300-4.500) H 03/03/24 19:03 Free T4 0.71 ng/dl (0.61-1.60) 03/03/24 19:03 Anaplasma Smear See Comment 03/03/24 19:03 Babesia Smear See Comment 03/03/24 19:03 Lyme Disease Screen Negative (Negative) 03/03/24 19:03 Impressions Chest CTA 03/03/24 20:33 Exam(s): CTA CHEST IV Amt: 119 cc opti 320 EXAM: CT Angiography Chest With Intravenous Contrast CLINICAL HISTORY: Reason for exam: PE. TECHNIQUE: Axial computed tomographic angiography images of the chest with intravenous contrast. Automated exposure control was utilized for the study. A dose lowering technique was utilized adhering to the principles of ALARA. MIP reconstructed images were created and reviewed. COMPARISON: No relevant prior studies available. FINDINGS: Pulmonary arteries: Unremarkable. No pulmonary embolism. Aorta: Atherosclerotic changes of the aorta. No thoracic aortic aneurysm. Lungs: Unremarkable. No mass. No consolidation. Pleural space: Unremarkable. No significant effusion. No pneumothorax. Heart: Cardiomegaly. No significant pericardial effusion. No evidence of RV dysfunction. Bones/joints: Degenerative changes of the spine. No acute fracture. No dislocation. Soft tissues: Unremarkable. Lymph nodes: Unremarkable. No enlarged lymph nodes. IMPRESSION: No acute findings in the visualized arteries of the chest. Electronically signed by: Jorge A Jhaveri MD 03/03/24 23:51 PM Abdomen/Pelvis CT 03/04/24 00:44 Exam(s): CT ABDOMEN + PELVIS Without Contrast EXAM: CT Abdomen and Pelvis Without Intravenous Contrast CLINICAL HISTORY: Reason for exam: abd pain, belching, hernia, SYLVESTER. TECHNIQUE: Axial computed tomography images of the abdomen and pelvis without intravenous contrast. CTDI is 28 mGy and DLP is 1415 mGy-cm. Automated exposure control was utilized for the study. A dose lowering technique was utilized adhering to the principles of ALARA. COMPARISON: No relevant prior studies available. FINDINGS: Lung bases: Unremarkable. No mass. No consolidation. ABDOMEN: Liver: Unremarkable. Gallbladder and bile ducts: Unremarkable. No calcified stones. No ductal dilation. Pancreas: Unremarkable. No ductal dilation. Spleen: Unremarkable. No splenomegaly. Adrenals: Unremarkable. No mass. Kidneys and ureters: Unremarkable. No obstructing stones. No hydronephrosis. Stomach and bowel: Diverticulosis, without acute diverticulitis. No small bowel obstruction. No free intraperitoneal air. PELVIS: Appendix: No findings to suggest acute appendicitis. Bladder: Unremarkable. No stones. Reproductive: Enlarged prostate gland, measures 7 cm. ABDOMEN and PELVIS: Intraperitoneal space: Unremarkable. No free air. No significant fluid collection. Bones/joints: Degenerative changes of the spine. No acute fracture. No dislocation. Soft tissues: Small fat-containing bilateral inguinal hernias. Vasculature: Atherosclerotic changes of the aorta. No abdominal aortic aneurysm. Lymph nodes: Unremarkable. No enlarged lymph nodes. IMPRESSION: 1. Enlarged prostate gland, measures 7 cm. 2. Diverticulosis, without acute diverticulitis. No small bowel obstruction. No free intraperitoneal air. Electronically signed by: Jorge A Jhaveri MD 03/04/24 02:17 AM Code Status & VTE Plan Code Status Full code VTE Prophylaxis Plan VTE Prophylaxis will be ordered: Yes PG Care Time/CCT Total # of Minutes Spent Total Time Spent with Patient: Total time spent is greater than 50% in coordination of care (as documented) at patient's floor/unit and/or counseling patient: Coding Level of Care Code 50320 INT INP/OBS CARE 3/75MIN Diagnoses Supraventricular tachycardia I47.10 Type 2 diabetes mellitus without complication, without long-term current use of insulin E11.9 Diabetes mellitus nursing home insulin use: without nursing home use Diabetes mellitus complication status: without complication Obesity (BMI 30-39.9) E66.9 Acute kidney injury N17.9 Hyperglycemia due to type 2 diabetes mellitus E11.65 (2) DM (diabetes mellitus), type 2 Diabetes mellitus nursing home insulin use: without intermodal customer service use Diabetes mellitus complication status: without complication Qualified Code(s): E11.9 - Type 2 diabetes mellitus without complications
[2024-03-04] MEDS ORDERED: ONDANSETRON INJ 2 MG/ML 2 ML VIAL IV PRN (01:51)
[2024-03-04] MEDS ORDERED: ACETAMINOPHEN 325 MG TAB PO PRN (01:51)
--- NOTE | 2024-03-04 02:18 | CT Scan Report ---
Exam(s): CT ABDOMEN + PELVIS Without Contrast EXAM: CT Abdomen and Pelvis Without Intravenous Contrast CLINICAL HISTORY: Reason for exam: abd pain, belching, hernia, SYLVESTER. TECHNIQUE: Axial computed tomography images of the abdomen and pelvis without intravenous contrast. CTDI is 28 mGy and DLP is 1415 mGy-cm. Automated exposure control was utilized for the study. A dose lowering technique was utilized adhering to the principles of ALARA. COMPARISON: No relevant prior studies available. FINDINGS: Lung bases: Unremarkable. No mass. No consolidation. ABDOMEN: Liver: Unremarkable. Gallbladder and bile ducts: Unremarkable. No calcified stones. No ductal dilation. Pancreas: Unremarkable. No ductal dilation. Spleen: Unremarkable. No splenomegaly. Adrenals: Unremarkable. No mass. Kidneys and ureters: Unremarkable. No obstructing stones. No hydronephrosis. Stomach and bowel: Diverticulosis, without acute diverticulitis. No small bowel obstruction. No free intraperitoneal air. PELVIS: Appendix: No findings to suggest acute appendicitis. Bladder: Unremarkable. No stones. Reproductive: Enlarged prostate gland, measures 7 cm. ABDOMEN and PELVIS: Intraperitoneal space: Unremarkable. No free air. No significant fluid collection. Bones/joints: Degenerative changes of the spine. No acute fracture. No dislocation. Soft tissues: Small fat-containing bilateral inguinal hernias. Vasculature: Atherosclerotic changes of the aorta. No abdominal aortic aneurysm. Lymph nodes: Unremarkable. No enlarged lymph nodes. IMPRESSION: 1. Enlarged prostate gland, measures 7 cm. 2. Diverticulosis, without acute diverticulitis. No small bowel obstruction. No free intraperitoneal air. Electronically signed by: Jorge A Jhaveri MD 03/04/24 02:17 AM
[2024-03-04 04:12] LABS: Basophils # (auto) 0.05 K/uL (0.00-0.20); Basophils % (auto) 0.8 %; Eosinophils # (auto) 0.32 K/uL (0.00-0.50); Eosinophils % (auto) 5.4 %; Hematocrit (blood only) 37.8 % (42.0-52.0); Hemoglobin 12.8 g/dl (14.0-18.0); Immature Granulocytes # (auto) 0.03 K/uL (0.01-0.20); Immature Granulocytes % (auto) 0.5 %; Lymphocytes # (auto) 1.25 K/uL (1.20-3.40); Lymphocytes % (auto) 21.2 %; Mean Corpuscular Hemoglobin 30.7 pg (25.0-34.0); Mean Corpuscular Hgb Conc 33.9 g/dL (32.0-36.0); Mean Corpuscular Volume 90.6 fL (80.0-100.0); Mean Platelet Volume 9.6 fL (9.4-12.4); Monocytes # (auto) 0.58 K/uL (0.11-0.59); Monocytes % (auto) 9.8 %; Neutrophils # (auto) 3.68 K/uL (1.40-6.50); Neutrophils % (auto) 62.3 %; Platelet Count 218 K/uL (130-400); RDW Coefficient of Variation 12.7 % (11.5-14.5); RDW Standard Deviation 41.5 fL (36.4-46.3); Red Blood Count 4.17 M/uL (4.70-6.10); White Blood Count 5.91 K/ul (4.8-10.8)
[2024-03-04 04:25] LABS: Albumin Level 3.5 gm/dl (3.4-5.0); BUN Creatinine Ratio 15.7 (10-20); Creatinine Clr Calc Pharmacy 65.2 ml/min; Est GFR (African American) 64.7 ml/min; Est GFR (Non-African American) 55.8 ml/min; Phosphorus 4.6 mg/dl (2.5-4.9); Potassium 4.2 mmol/L (3.5-5.1)
[2024-03-04] MEDS: SODIUM CHLORIDE 0.9% 1,000 ML IV SCH (06:00)
--- NOTE | 2024-03-04 07:21 | XRay Report ---
XR chest 1V not portable CLINICAL HISTORY: Chest pain, nonspecific COMPARISON STUDY: Chest radiograph May 31, 2022. Chest CT July 16, 2022. FINDINGS: Lung volumes are normal. Lungs are clear. There is no pneumothorax or pleural effusion. The re is moderate cardiomegaly. Mediastinal contours are normal. There is no evidence for pulmonary vikash a. IMPRESSION: No acute cardiopulmonary findings. Cardiomegaly. ACT 112: Negative or not required by law. Electronically signed by: Peter Armendariz M.D. 03/04/2024 7:19 AM
[2024-03-04 07:37] LABS: Estimated Average Glucose 140 mg/dl; Hemoglobin A1C 6.5 % (4.5-5.6)
--- NOTE | 2024-03-04 07:51 | Cardiology Consultation ---
Date of Consultation March 04, 2024 Assessment & Plan (1) Paroxysmal SVT (supraventricular tachycardia): (2) Chest pain: (3) Coronary artery calcification seen on CT scan: (4) HTN (hypertension): (5) DM (diabetes mellitus), type 2: Plan 83-year-old man with no past cardiac history presents with chest discomfort and intermittently recurring supraventricular tachycardia. Etiology of PSVT is uncertain, electrolytes were normal and thyroid studies fairly unremarkable. Since his blood pressure is labile and low normal at times, would favor beta- laurence over calcium channel laurence for rhythm/rate management. Recommend metoprolol tartrate 25 mg p.o. every 8 hours, depending upon his response would consolidate to metoprolol succinate upon discharge. Had fairly recent echocardiogram (dobutamine stress 2021), so development of structural heart disease unlikely. Normal troponin and absence of symptoms during at least some of the episodes of SVT suggest that he does not have major occlusive coronary artery disease (despite the presence of coronary calcification), but the fact that he does develop chest discomfort during prolonged episodes of SVT raises the possibility of some degree of CAD. Would recommend outpatient stress testing at some point once he is on a stable dose of negative chronotropic medication to assess for both ischemia and chronotropic response to activity on medication. Will continue to follow from a cardiology standpoint. History of Present Illness Reason for Consultation: PSVT to heart rate 154 Requesting Physician: Mikki Dejesus MD Attending Physician: Mikki Dejesus MD History of Present Illness 83-year-old man with history of diabetes mellitus, no cardiac history, presented to emergency department 03/03/2024 with chest discomfort and found to have supraventricular tachycardia 154 bpm. Patient received adenosine followed by diltiazem IV and converted to sinus rhythm. ECG post-conversion showed sinus rhythm with left anterior fascicular block, rate 71 bpm, isoelectric ST segments. Troponin was negative. At recent baseline, he denies any dyspnea exertion, chest pain, or other cardiopulmonary complaints prior to 4 days ago when he initially noted mild chest "tightness", took TUMS, and felt better after short while. He had several further episodes of chest discomfort, including the one prompting his ER visit yesterday. Overnight he had 2 further episodes of SVT (9 PM and 6 AM), each lasting a few minutes, neither was symptomatic. At the time of my evaluation this morning, patient had no somatic complaints. Allergies Allergy/AdvReac Type Severity Reaction Status Date / Time No Known Allergies Allergy Verified 03/04/24 00:18 Home Medications Medication Instructions Recorded Confirmed Type True Prostate See Rx Instructions .Route 05/17/21 03/04/24 History .COMPLEX as directed alpha lipoic acid 100 mg capsule 100 mg PO QAM 05/17/21 03/04/24 History aspirin 81 mg tablet,delayed 81 mg PO QAM 04/02/23 03/04/24 History release (Adult Low Dose Aspirin) Prevagen 1 tab PO QAM 03/04/24 03/04/24 History metformin 500 mg tablet 500 mg PO QAM 03/04/24 03/04/24 History vit A 7,160 unit-vit C 113 mg-vit 1 tab PO QAM 03/04/24 03/04/24 History E 100 [id number]-kgiaem tablet Patient History Medical History (Updated 03/04/24 @ 09:[address]) History of COVID-19 Dx 11/2021--asymptomatic (tested for preop) Osteoarthritis Borderline high cholesterol Surgical History History of left knee surgery History of arthroplasty of right knee Right 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 No issues noted per post-op anesthesia progress note. History of tooth extraction History of hernia surgery right inguinal History of colonoscopy History of thumb surgery Left (had metal removed) History of arthroscopy of right knee Family History Family/Other No problems noted. Mother Family history of diabetes mellitus Other Family history of colon cancer in father No family history of adverse response to anesthesia Denies family history of Ovarian cancer Prostate cancer Clotting disorder Myocardial infarction Breast cancer Social History Smoking Status: Never smoker Tobacco Type: Cigarettes packs per day: 1; Second Hand Exposure: No; Do You Dip or Chew Tobacco: No; Tobacco Cessation Education Requested by Patient: No Hx Alcohol Use: Yes Hx Substance Use: No Preferred Language: Turkish Communication Ability: Effective Hearing Ability: Hard of Hearing Professor Of Psychiatry Required: No Beliefs That Will Affect Care: None marital status: Current Living Situation: Spouse current occupational status: retired How many Children do You have: 2 Other Information That Helps Us Care for You: No Feels Safe at Home: Yes Safety Concerns: Feels Safe At This Time Childhood Exposure to Second-Hand Smoke: No Diet: regular caffeine: Yes Dental Care, Regularly: No Physical Activity Frequency: Does not Exercise Seatbelt Use: always Sunscreen Use: No Assistive Devices: None Physical Exam Physical Exam: Elderly white male who appears comfortable. Afebrile. BP mildly hypertensive. Pulse 60 bpm and regular. Respirations 18 unlabored. Skin: no ecchymoses or generalized lesions. HEENT: unremarkable. Neck: JVP at the clavicle at 90 degrees, no carotid bruits. Lungs: clear. Cardiac: regular rhythm, normal S1-2, no murmur. Abdomen: benign. Extremities: no edema, pulses intact. Neurologic: normal affect and conversation, nonfocal. Results & Data Laboratory Results Normal electrolytes, including potassium of 4.2 and magnesium of 1.8. BUN 19, creatinine 1.2. Troponin 10.4. Mildly elevated TSH (4.5) with normal T4 (0.71). Diagnostic Findings Chest x-ray is unremarkable. Chest CT showed no pulmonary embolism. Atherosclerotic aorta noted. Chest CT 2021 showed moderate coronary artery calcifications. Dobutamine stress echocardiogram 2021 showed no ischemia 92% maximum predicted heart rate. Resting echo with moderate LVH, mild aortic root dilatation and no significant valvular abnormalities. PG Care Time/CCT Total # of Minutes Spent Total Time Spent with Patient: Total time spent is greater than 50% in coordination of care (as documented) at patient's floor/unit and/or counseling patient: Coding Level of Care Code 05369 INT INP/OBS CARE 375MIN Diagnoses Paroxysmal SVT (supraventricular tachycardia) I47.10 Chest pain R07.9 Coronary artery calcification seen on CT scan I25.10 Primary hypertension I10 Hypertension type: primary hypertension Type 2 diabetes mellitus without complication, without long-term current use of insulin E11.9 Diabetes mellitus complication status: without complication Diabetes mellitus watermaster insulin use: without watermaster use (4) HTN (hypertension) Hypertension type: primary hypertension Qualified Code(s): I10 - Essential (primary) hypertension (5) DM (diabetes mellitus), type 2 Diabetes mellitus complication status: without complication Diabetes mellitus fdc insulin use: without watermaster use Qualified Code(s): E11.9 - Type 2 diabetes mellitus without complications
[2024-03-04] MEDS: ASPIRIN 81 MG ECTAB PO SCH (08:40)
--- NOTE | 2024-03-04 10:44 | Hospitalist Progress Note ---
Date of Service March 04, 2024 Assessment & Plan (1) Supraventricular tachycardia: (2) DM (diabetes mellitus), type 2: (3) Obesity (BMI 30-39.9): (4) Acute kidney injury: (5) Hyperglycemia due to type 2 diabetes mellitus: Plan pSVT - Patient with chest tightness and SOB with episodes of tachycardia reaching 150s - s/p Adenosine 12 mg and Diltiazem 10mg in ED. No other meds given since then. - Has been recurring overnight as well with similar symptoms - TSH 4.594 - Electrolytes in normal range - Dobutamine stress test from 2021 normal - TTE ordered - states patient snores when sleeping. Possible GARETH component? would advise outpatient sleep study - Cardiology consulted uncertain as to etiology of pSVT Rec Metoprolol tartrate 25 mg PO TID May change to Metoprolol succinate after discharge May repeat stress test a few weeks after discharge due to possibility of CAD given chest tightness with increased HR Elevated Troponin - Troponin on admission was 10 - Due to persistent chest tightness, ordered repeat which was 23.8. Repeat level was 22.4 - Suspect likely from demand ischemia SYLVESTER (pre-renal?) - Cr of 1.60 on admission that improved to 1.21 after fluid administration - Continue IVF - Monitor am labs DM- Type 2 - Glucose 181 on admission - Hgb A1c of 6.5% (was 6.6 in 01/01) - On Metformin at home. Advise outpatient f/u and possible adjustment of management for better control Diet: DM-2, HH Fluids: NSS @ 100 ml/hr VTE ppx: ambulation Dispo: january discharge back home once stabilize HR and establish maintenance Code Status: FULL Admission and Anticipated Discharge Date Admission Date: March 04, 2024 Supervising Physician Co-Signing Physician Notes Attending Physician Supervision Note: I independently interviewed and examined the patient and verified the perez history and physical, reviewed labs and image studies and agree with findings and care plan noted above. With h/o significant snoring - consider outpatient sleep study. Subjective Patient endorsing intermittent chest tightness with noted increase in HR overnight that resolved. Otherwise no palpitations, SOB, weakness, diaphoresis, or any other symptom. No other concerns at this time. Review of Systems Review of Systems: As per HPI. Physical Exam Physical Exam: GENERAL: AAOx3, afebrile, calm, NAD HEAD: AT, NC EYES: EOM intact, IVY THROAT: normal to visual inspection CARDIO: RRR, no r/m/g RESPIRATORY: CTA b/l, normal respiratory effort, breathing at room air, no respiratory distress GI: non distended, non tender, soft EXTREMITIES: no swelling or calf tenderness in b/l LE SKIN: no rashes Results & Data Results & Data Vital Signs (Past 12 Hours) Vital Signs Temp Pulse Pulse Resp BP BP Pulse Ox 03/04/24 10:33 69 03/04/24 10:30 36.9 C 73 18 148/79 H 95 03/04/24 06:00 60 18 157/76 H 95 03/04/24 04:07 60 18 117/78 95 03/04/24 02:21 66 17 113/80 94 03/04/24 02:18 03/04/24 02:06 56 L 17 94 03/04/24 02:00 110/57 L 03/04/24 01:42 57 L 19 95 03/04/24 01:36 57 L 19 94 03/04/24 01:23 62 03/04/24 01:16 113/86 03/04/24 00:30 70 20 158/87 H 93 03/04/24 00:00 66 20 138/80 93 03/03/24 23:30 66 20 128/68 93 03/03/24 23:00 63 18 92 03/03/24 23:00 137/75 03/03/24 23:00 137/75 03/03/24 23:00 137/75 03/03/24 23:00 137/75 03/03/24 23:00 137/75 03/03/24 23:00 137/75 03/03/24 23:00 137/75 03/03/24 23:00 137/75 03/03/24 23:00 137/75 03/03/24 23:00 137/75 03/03/24 23:00 137/75 Pulse Ox O2 Del Method O2 Del Method O2 Flow Rate O2 Flow Rate 03/04/24 10:33 03/04/24 10:30 Room Air 03/04/24 06:00 Nasal Cannula 2 03/04/24 04:07 Nasal Cannula 03/04/24 02:21 Nasal Cannula 2 03/04/24 02:18 94 Nasal Cannula 2 03/04/24 02:06 03/04/24 02:00 03/04/24 01:42 03/04/24 01:36 03/04/24 01:23 03/04/24 01:16 03/04/24 00:30 Room Air 03/04/24 00:00 Room Air 03/03/24 23:30 Room Air 03/03/24 23:00 03/03/24 23:00 03/03/24 23:00 03/03/24 23:00 03/03/24 23:00 03/03/24 23:00 03/03/24 23:00 03/03/24 23:00 03/03/24 23:00 03/03/24 23:00 03/03/24 23:00 03/03/24 23:00 Resident Activity Tracking Resident Involvement: Resident Care Provided Care Provided: Adult Hospital Medicine (2) DM (diabetes mellitus), type 2 Diabetes mellitus complication status: without complication Diabetes mellitus skilled nursing insulin use: without skilled nursing use Qualified Code(s): E11.9 - Type 2 diabetes mellitus without complications
--- NOTE | 2024-03-04 10:45 | Electrocardiogram Report ---
Test Reason : Blood Pressure : / mmHG Vent. Rate : 154 BPM Atrial Rate : 000 BPM P-R Int : 000 ms QRS Dur : 100 ms QT Int : 276 ms P-R-T Axes : 000 -61 067 degrees QTc Int : 442 ms Supraventricular tachycardia Left axis deviation Minimal voltage criteria for LVH, may be normal variant ( Bicknell product ) Abnormal ECG When compared with ECG of 16-JUL-2022 14:54, Vent. rate has increased BY 85 BPM Supraventricular tachycardia now present Confirmed by Jomar Concepcion ([id number]) on 03/04/2024 10:44:57 AM Referred By: REFERRED SELF Confirmed By:Jomar Concepcion
[2024-03-04] MEDS: METOPROLOL TARTRATE 25 MG TAB PO SCH (12:38)
--- NOTE | 2024-03-04 16:34 | Electrocardiogram Report ---
Test Reason : Blood Pressure : / mmHG Vent. Rate : 071 BPM Atrial Rate : 071 BPM P-R Int : 186 ms QRS Dur : 092 ms QT Int : 370 ms P-R-T Axes : 014 -46 013 degrees QTc Int : 402 ms Normal sinus rhythm Left anterior fascicular block Abnormal ECG When compared with ECG of 03-MAR-2024 18:59, Vent. rate has decreased BY 83 BPM Supraventricular tachycardia no longer present Confirmed by Jomar Concepcion ([id number]) on 03/04/2024 4:33:44 PM Referred By: REFERRED SELF Confirmed By:Jomar Concepcion
--- NOTE | 2024-03-04 17:02 | XCELERA ---
[id number].pdf
[2024-03-05 07:21] LABS: Basophils # (auto) 0.06 K/uL (0.00-0.20); Eosinophils # (auto) 0.37 K/uL (0.00-0.50); Eosinophils % (auto) 6.1 %; Hematocrit (blood only) 39.1 % (42.0-52.0); Hemoglobin 13.3 g/dl (14.0-18.0); Immature Granulocytes # (auto) 0.01 K/uL (0.01-0.20); Immature Granulocytes % (auto) 0.2 %; Lymphocytes # (auto) 1.12 K/uL (1.20-3.40); Lymphocytes % (auto) 18.4 %; Mean Corpuscular Hemoglobin 30.5 pg (25.0-34.0); Mean Corpuscular Volume 89.7 fL (80.0-100.0); Mean Platelet Volume 9.8 fL (9.4-12.4); Monocytes # (auto) 0.48 K/uL (0.11-0.59); Monocytes % (auto) 7.9 %; Neutrophils # (auto) 4.04 K/uL (1.40-6.50); Neutrophils % (auto) 66.4 %; Platelet Count 222 K/uL (130-400); RDW Coefficient of Variation 12.4 % (11.5-14.5); Red Blood Count 4.36 M/uL (4.70-6.10); White Blood Count 6.08 K/ul (4.8-10.8)
[2024-03-05 07:35] LABS: Albumin Level 3.9 gm/dl (3.4-5.0); BUN Creatinine Ratio 14.6 (10-20); Calcium 9.1 mg/dl (8.6-10.3); Est GFR (African American) 63.4 ml/min; Est GFR (Non-African American) 54.7 ml/min; Phosphorus 3.8 mg/dl (2.5-4.9); Potassium 4.2 mmol/L (3.5-5.1)
--- NOTE | 2024-03-05 11:27 | Discharge Summary ---
Date of Service March 05, 2024 Admission HPI Per Admitting Provider The patient is an 83-year-old male with past medical history including carpal tunnel syndrome, bilateral TKAs, allergic rhinitis, PVCs, hyperlipidemia, obesity, hypertension, RLS and diabetes mellitus type 2. Upon arrival to the emergency department patient was noted to complain of pain across his chest, and he was immediately brought into the emergency department for assessment. He was found to be in a supraventricular tachycardia, with EKG noting a heart rate 154. He is given adenosine 12 mg by the ED, followed by diltiazem 10 mg IV, with return of heart rate to the 80s. The symptoms that he presented with to the ED this evening, were similar to the ones he had over the past 4 days. Admission Exam Per Admitting Provider The patient is awake, alert and oriented 3, well developed and well nourished, normocephalic and atraumatic, lying in bed and in no acute distress. HEENT--PERRL, EOMI, mucous membranes and oropharynx dry. Neck--supple. No JVD. No bruits. Thyroid normal, trachea midline, no adenopathy. Heart--normal S1 and S2. No murmurs, rubs or gallops. Lungs--clear bilaterally, no respiratory distress, no accessory muscle use. Abdomen--normal bowel sounds and soft. Nontender. Nondistended. Morbidly obese Extremities--no cyanosis or clubbing. No edema. There are good distal pulses b/l. Dermatologic--normal skin turgor, normal color, no abnormal lymph nodes, no rash. Neurologic--cranial nerves II through XII grossly intact. Rheumatologic--normal range of motion. Psychiatric--normal affect. Principal Diagnosis Paroxysmal SVT Discharge Exam GENERAL: AAOx3, afebrile, calm, NAD HEAD: AT, NC EYES: EOM intact, IVY THROAT: normal to visual inspection CARDIO: RRR, no r/m/g RESPIRATORY: CTA b/l, normal respiratory effort, breathing at room air, no respiratory distress GI: non distended, non tender, soft EXTREMITIES: no swelling or calf tenderness in b/l LE SKIN: no rashes Discharge Data Allergies Allergy/AdvReac Type Severity Reaction Status Date / Time No Known Allergies Allergy Verified 03/04/24 00:18 Consultations 03/04/24 00:10 ED Decision to Admit Stat 03/04/24 05:36 Consult Cardiology Routine Ordered Studies 03/03/24 20:33 CT angio chest PE protocol Stat 03/04/24 00:44 CT Abdomen and Pelvis [CT abd pelvis wo con] Stat Hospital Course (1) Supraventricular tachycardia: (2) DM (diabetes mellitus), type 2: (3) Obesity (BMI 30-39.9): (4) Acute kidney injury: (5) Hyperglycemia due to type 2 diabetes mellitus: Plan pSVT -- New diagnosis, stable - Patient with chest tightness and SOB with episodes of tachycardia reaching 150s - s/p Adenosine 12 mg and Diltiazem 10mg in ED - TSH 4.594 - Electrolytes in normal range - Dobutamine stress test from 2021 normal, but concern for some degree of CAD given chest tightness with increased HR - TTE without significant changes compared to previous study in 2021 (normal LV systolic function, LVEF of 60-65%) - states patient snores when sleeping. Possible GARETH component? would advise outpatient sleep study to evaluate - Will complete today's dose of Metoprolol tartrate 25 mg PO and start Metoprolol succinate 50mg qam tomorrow - Would consider repeat stress test to assess for CAD Elevated Troponin - Troponin on admission was 10 - Due to persistent chest tightness, ordered repeat which was 23.8. Repeat level was 22.4 - Suspect likely from demand ischemia SYLVESTER (pre-renal?) -- Resolved - Cr of 1.60 on admission that improved to 1.21 after fluid administration DM- Type 2 -- Chronic, stable - Glucose 181 on admission - Hgb A1c of 6.5% (was 6.6 in 01/01) - On Metformin at home - Continue outpatient monitoring. Will discharge patient today with recommendations to follow up with his PCP and with cardiology after discharge. Total Time Total Time Spent Total Time Spent (In Minutes): As per attending attestation. Discharge Plan Discharge Items Patient Disposition: Home - Self-Care Reason For Visit: SVT, CHEST PAIN, SYLVESTER, ABD WELL HERNIA Discharge Diagnosis: Paroxysmal SVT Activity: Per Instructions section Non-emergency contact: Primary Care Provider and Crank [facility] Call non-emergency contact if: your symptoms worsen Follow-up/Referrals: Jomar Concepcion MD [Physician] - 03/06/24 3:00 pm (Hospital follow up scheduled March 06 at 3:00 ) Idalia Blake MD [Primary Care Provider] - 03/12/24 10:00 am (Hospital follow up scheduled March 12 at 10:00) Diet: Carb Consistent or DM2 and Heart Healthy Addtl Attending Provider Instructions: You were admitted to the hospital for management of chest tightness that was associated to a rapid heart rate. You were managed in the ED with 2 medications called Adenosine and Diltiazem which helped get your heart rate back to your normal range, but overnight your heart rate would increase and then return to your normal range. Therefore, we started a new medication called Metoprolol tartrate 25 mg, per cardiology recommendations, which seemed to have stabilized your heart rate and keep it in normal range. Since your heart rate is stable and your symptoms have resolved, we will be discharging you today with Metoprolol succinate 50 mg for control of heart rate, which you should take every morning. We will also be giving you an additional dose of Metoprolol tartrate 25 mg for you to take tonight to complete the 3 doses for today. You should not continue this medication tomorrow, and should take the metoprolol succinate 50 mg instead. Please call your primary care provider's office to schedule a follow up appointment within 1 week. 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 A discharge summary will be sent to your primary care physician to ensure continuity of care. Please bring this discharge summary with you to your next office appointment so that your provider can review it at that time. Follow-up appointments: Make a follow-up appointment with your PCP within the next week. It is very important that you follow up with them shortly after discharge from the hospital. Keep all your follow-up appointments as already scheduled. If you cannot make an appointment, notify your provider. Medications: Your medication list has been reviewed and reconciled upon discharge to ensure accuracy and continuity of care. An updated list of all your medications is included with your hospital discharge paperwork. Please review this list closely, and make note of any changes. We sent a new medication called Metoprolol tartrate to your pharmacy. Take Metoprolol tartrate 25 mg one time tonight to complete the 3 doses from today. We sent a new medication called Metoprolol succinate to your pharmacy. Take Metoprolol succinate 50mg by mouth every morning. If you have any issues filling these prescriptions, please call [phone] and ask to leave a message for Dr. Hidalgo. Take your medications as instructed; do not skip a dose of your medicines. Make sure all of your doctors know every medicine you are taking (including djix-xzv-pudgbgr medicines, vitamins, and supplements). Call your primary care provider before taking any new medicines (including over- the-counter medicines, vitamins, and supplements), because some of these may interact with your current medications, or may make your symptoms worse. Tell your primary care provider if you cannot afford your medications. CONTACT YOUR PRIMARY CARE PROVIDER if you experience any of the following: Worsening of symptoms Fever, chills, or fatigue Difficulty following your treatment plan, or difficulty taking medications CALL 911 OR GO TO THE EMERGENCY DEPARTMENT if you experience any of the following: Sudden, severe abdominal pain or nausea/vomiting Severe chest pain, or chest pain that radiates (moves) to your jaw or arm Sudden, severe shortness of breath or difficulty breathing Thank you for allowing us to participate in your care. Pending Studies at Discharge: No Stand-Alone Forms: My [facility] [employer], Smoking Cessation Medications and DC Order Prescriptions: New metoprolol tartrate 25 mg tablet 25 mg PO DAILY Qty: 1 0RF Rx Instructions: Take one tablet tonight before bed 03/05. This will complete your inpatient three times per day dosing. metoprolol succinate 50 mg capsule,sprinkle,ER 24hr 50 mg PO DAILY Qty: 30 0RF Rx Instructions: Start taking once daily on 03/06. Continued aspirin [Adult Low Dose Aspirin] 81 mg tablet,delayed release (DR/EC) 81 mg PO QAM alpha lipoic acid 100 mg Capsule 100 mg PO QAM True Prostate capsule See Rx Instructions .ROUTE .COMPLEX Rx Instructions: as directed vit A-vit C-vit [id number] 7,[id number] [id number] Tablet 1 tab PO QAM Prevagen 1 tab PO QAM metformin 500 mg tablet 500 mg PO QAM Discharge Orders: Discharge Order (Routine); Ordered 03/05/24 Ordered By: Sofia Espino/Other Patient Handouts: Type 2 Diabetes Admission Data Admit Date/Time: 03/04/24 00:59 Attending Provider: Mikki Dejesus Admit Provider: Rahul eLon Primary Care Provider: Idalia Blake Other Providers: Rahul Leon; Robert Burrell Other Interventions: Discharge Summary Assessment (RN) Last Done: 03/05/24 14:34 Supervising Physician Co-Signing Physician Notes Attending Physician Supervision Note: I independently interviewed and examined the patient and verified the perez history and physical, reviewed labs and image studies and agree with findings and care plan noted above. With h/o significant snoring - consider outpatient sleep study. Resident Activity Tracking Resident Involvement: Resident Care Provided Care Provided: Adult Hospital Medicine
--- NOTE | 2024-03-05 12:39 | Cardiology Progress Note ---
Date of Service March 05, 2024 Assessment & Plan (1) Paroxysmal SVT (supraventricular tachycardia): (2) Chest pain: (3) Coronary artery calcification seen on CT scan: (4) HTN (hypertension): (5) DM (diabetes mellitus), type 2: Plan Benign telemetry overnight while on modest dose of beta-laurence. Given mild bradycardia and periodic ectopic atrial rhythm, might aim for lower dose beta-laurence and discharge on metoprolol succinate 25 mg daily. I will arrange for follow-up within the next few weeks and will arrange for an MCOT monitor to ensure he is not having recurrent SVT. Also, once he is on a stable dose of beta-laurecne will arrange for outpatient stress testing to further risk stratify and assess for myocardial ischemia. Admission and Anticipated Discharge Date Admission Date: March 04, 2024 Subjective Benign telemetry overnight, patient's rhythm to switch between sinus and ectopic atrial with rates in the 50-70 bpm range. He was somewhat confused this morning, apparently this happens at home as well from time to time. He denies any symptoms, noting no chest pain, dyspnea, or lightheadedness. Physical Exam Physical Exam: No distress but is somewhat confused. BP mildly hypertensive. Pulse 62 bpm and regular. Respirations 18 unlabored. Skin: no ecchymoses or generalized lesions. HEENT: unremarkable. Neck: JVP at the clavicle at 90 degrees, no carotid bruits. Lungs: clear. Cardiac: regular rhythm, normal S1-2, no murmur. Abdomen: benign. Extremities: no edema, pulses intact. Neurologic: normal affect and conversation, nonfocal. Results & Data Laboratory Results Normal electrolytes, BUN 18, creatinine 1.23. PG Care Time/CCT Total # of Minutes Spent Total Time Spent with Patient: Total time spent is greater than 50% in coordination of care (as documented) at patient's floor/unit and/or counseling patient: Coding Level of Care Code 96311 SUB INP/OBS CARE 2/35MIN Diagnoses Paroxysmal SVT (supraventricular tachycardia) I47.10 Chest pain R07.9 Coronary artery calcification seen on CT scan I25.10 Primary hypertension I10 Hypertension type: primary hypertension Type 2 diabetes mellitus without complication, without long-term current use of insulin E11.9 Diabetes mellitus assistant terminal manager insulin use: without assistant terminal manager use Diabetes mellitus complication status: without complication (4) HTN (hypertension) Hypertension type: primary hypertension Qualified Code(s): I10 - Essential (primary) hypertension (5) DM (diabetes mellitus), type 2 Diabetes mellitus alf insulin use: without assistant terminal manager use Diabetes mellitus complication status: without complication Qualified Code(s): E11.9 - Type 2 diabetes mellitus without complications
[2024-03-06 21:23] LABS: Babesia microti DNA Not Detected (Not Detected)
[2024-03-07 11:09] LABS: Ehrlichia chaff DNA Bld Negative (Negative)
== END 2024-03-05 16:19 | disposition home or self-care (01) ==
LOC: EDINP 18:42 → ED 18:42 → SUATTDRO 03-04 00:59 → 2S 03-04 01:51

== ENCOUNTER 2024-03-24 16:03 | Inpatient (IN) ==
--- NOTE | 2024-03-24 16:14 | ED Triage Note ---
Date of Service March 24, 2024 Provider in Triage Author: Xiao Jimenez History of Present Illness This patient was briefly evaluated while in triage. An abbreviated physical exam was performed. This patient is a 83-year-old Male who presents to the ED for evaluation of his cardiac event monitor. He was contacted by Dr. Concepcion's office for evaluation for a 3.9 second pause. He also had tachycardia of 161 while outside working yesterday. Pt reports chest pain and shob yesterday, however, today no symptoms. Physical Exam CONSTITUTIONAL: in no acute pain or distress, resting comfortably SKIN: pink, warm, dry CARDIAC: regular rate and rhythm RESPIRATORY: in no respiratory distress, lungs clear to auscultation ABDOMEN: no TTP MSK: 5/5 strength throughout NEURO: no neuro deficits, alert and oriented x 3 Initial orders for labs and / or imaging were placed and patient was placed in the waiting area until a bed is available. Please see further documentation for the full ED course.
--- NOTE | 2024-03-24 16:39 | Emergency Department Note ---
Impression & Plan Sinus pause, Chest pain, Tachycardia ED Provider Note NAME: LUCRECIA ODONNELL AGE: 83 SEX: M : 1940 ARRIVES VIA: Walk-In INFORMANT: Patient ED PROVIDER(S): Kirt Erickson DO CHIEF COMPLAINT: Four second cardiac pause HPI: Patient is an 83-year-old male with a past medical history of paroxysmal SVT, diabetes who presents the ER as he was wearing a monitor. He was found to have a 4-second pause. He also had runs of heart rates being in the 160s twice yesterday. He notes with this he had a chest tightness which lasted for about 3 to 4 hours. He currently denies any chest pain or shortness of breath. No arm or jaw pain. He admits to some stiffness in his back upper neck. Denies any belly pain, nausea, vomiting, or diarrhea. No dysuria, urgency, or frequency. No other exacerbating or remitting factors. ADDITIONAL HISTORY OBTAINED: Additional history provided by who is present at bedside. Chronic Medical/Social Conditions Affecting Care: Per HPI PAST MEDICAL HISTORY:See Below PAST SURGICAL HISTORY:See Below FAMILY HISTORY:See Below SOCIAL HISTORY:See Below HOME MEDICATIONS:See Below ALLERGIES:See Below VITALS:See Below PHYSICAL EXAMINATION: GENERAL: Sitting up in bed, alert, well appearing, well nourished, no distress, non-toxic EYE EXAM: normal conjunctiva. OROPHARYNX: mucous membranes are moist LUNGS: Clear to auscultation. Normal chest wall mechanics HEART: no murmurs, S1 normal and S2 normal ABDOMEN: abdomen soft, non-tender, normo-active bowel sounds, no masses, no rebound or guarding. BACK: Back is symmetrical on inspection and there is no deformity, no midline tenderness, no CVA tenderness. SKIN: no rashes and no bruising UPPER EXTREMITIES: upper extremities are grossly normal. LOWER EXTREMITIES: No pitting edema. Calves are equal bilaterally NEURO EXAM: Normal sensorium, cranial nerves II-XII grossly intact, normal speech, no gross weakness of arms, no gross weakness of legs. MEDICAL DECISION MAKING: Patient is an 83-year-old male with a past medical history of diabetes, SVT who presents the ER for sinus pause and elevated heart rate as well as chest pain yesterday. IVs were established blood work is obtained. Labs show no significant leukocytosis. Mild anemia at 13.5. BMP with chloride at 110. LFTs bilirubin is unremarkable. Troponin was negative. Lipase unremarkable. Patient per review of the chart had a sinus pause per review of external records earlier this month on the third per Dr. Concepcion. I spoke with Dr. Willard today and he notes another pauses today. Patient had metoprolol decreased after the first pause. Patient had a fair amount of chest pain yesterday with an elevated heart rate for 3 to 4 hours. Current plan after discussion with cardiology is to continue to decrease the metoprolol. With the chest pain and elevated heart rates and sinus pauses do feel this patient warrants observation overnight. Discussed case with the hospitalist for further evaluation management treatment. Consults/Care Managements Discussions: Per MDM Triage Nursing notes reviewed. Limited review of prior medical records performed Vital Signs: reviewed and remarkable for HTN Differential diagnosis: Cardiac ischemia, aortic dissection, pulmonary embolism, pneumothorax, pneumonia, pericarditis, myocarditis, esophageal rupture, GERD, cholecystitis, pancreatitis, musculoskeletal, as well as other pathologies. ER treatment provided: See below Diagnostics interpreted by me include EKG and cardiac monitoring as listed below: -Cardiac Monitoring: An order was placed for continuous cardiac monitoring. The monitor shows a rate of 70 with sinus rhythm. -ECG: Sinus rhythm rate of 62 Left axis No PVCs QTc 395 -Laboratory studies:Interpreted by me as stated above in MDM and shown below. Imaging studies: Xrays: As interpreted by me: Portable AP upright 1 view of the chest shows no focal Lutrate CTs show: none Procedures:none Critical Care: None Past Med/Surg History Problem List (Updated 03/24/24 @ 20:22 by Kirt Erickson DO) Tachycardia (Acute) Chest pain (Acute) Sinus pause (Acute) Paroxysmal SVT (supraventricular tachycardia) Hyperglycemia due to type 2 diabetes mellitus Acute kidney injury Obesity (BMI 30-39.9) Supraventricular tachycardia Dysrhythmia (Acute) Dyspnea (Acute) Chest pain (Acute) Carpal tunnel syndrome on both sides Numbness and tingling of hand Coronary artery calcification seen on CT scan Encounter for immunization Status post total left knee replacement Arthritis of knee, left Allergic rhinitis (Acute) Premature ventricular contractions (Acute) Cerumen impaction (Chronic) Routine health maintenance (Chronic) Elevated LDL cholesterol level (Chronic) Decreased hearing of left ear (Acute) Right knee pain (Chronic) Elevated hemoglobin A1c Arthritis of right knee Toenail deformity Hearing loss Obesity Pre-op evaluation Encounter for pre-operative examination Counseled about COVID-19 virus infection Hx of total knee arthroplasty HTN (hypertension) PCP monitoring, no medications RLS (restless legs syndrome) DM (diabetes mellitus), type 2 (Chronic) Medical History History of COVID-19 Osteoarthritis Borderline high cholesterol Surgical History History of left knee surgery History of arthroplasty of right knee History of tooth extraction History of hernia surgery History of colonoscopy History of thumb surgery History of arthroscopy of right knee Family History Family/Other No problems noted. Mother Family history of diabetes mellitus Other Family history of colon cancer in father No family history of adverse response to anesthesia Denies family history of Ovarian cancer Prostate cancer Clotting disorder Myocardial infarction Breast cancer Social History Smoking Status: Former smoker Tobacco Type: Cigarettes packs per day: 1; Second Hand Exposure: No; Do You Dip or Chew Tobacco: No; Hx Alcohol Use: Yes Hx Substance Use: No Preferred Language: Czech Communication Ability: Effective Hearing Ability: Hard of Hearing Airplane Tube Builder Required: No Beliefs That Will Affect Care: None marital status: Current Living Situation: Spouse current occupational status: retired How many Children do You have: 2 Feels Safe at Home: Yes Childhood Exposure to Second-Hand Smoke: No Diet: regular caffeine: Yes Dental Care, Regularly: No Physical Activity Frequency: Does not Exercise Seatbelt Use: always Sunscreen Use: No Assistive Devices: Cane and Walker Allergies Allergies Allergy/AdvReac Type Severity Reaction Status Date / Time No Known Allergies Allergy Verified 03/24/24 18:44 Home Meds Home Medications Medication Instructions Recorded Confirmed Prevagen 1 tab PO QAM 03/04/24 03/24/24 metformin 500 mg tablet 500 mg PO QAM 03/04/24 03/24/24 aspirin 81 mg tablet,delayed 40.5 mg PO DAILY 03/24/24 03/24/24 release metoprolol succinate 50 mg 25 mg PO DAILY 03/24/24 03/24/24 tablet,extended release 24 hr Results & Data (ED) Vital Signs Vital Signs - 24 hr 03/24/24 16:10 03/24/24 16:32 03/24/24 16:37 Temperature 36.6 C Temperature Source Temporal Artery Scan Pulse Rate 62 64 Pulse Rate [Apical] Pulse Rate from SpO2 Sensor Pulse Rhythm [Apical] Pulse Strength [Apical] Respiratory Rate 18 Respiratory Effort / Characteristics Non-Labored Spontaneous Respiratory Depth Normal Respiratory Pattern Regular Blood Pressure 144/71 H 145/88 H Blood Pressure [Right Arm] Blood Pressure Mean 95 114 Blood Pressure Mean [Right Arm] Pulse Oximetry 95 Oxygen Delivery Method Room Air Sepsis Recent Fever Within 48 Hours No Sepsis New/Unexplained Change in Mental Status N/A Sepsis Action Taken by Nursing No Action Required 03/24/24 16:39 03/24/24 16:43 03/24/24 17:00 Temperature Temperature Source Pulse Rate 60 59 L 57 L Pulse Rate [Apical] Pulse Rate from SpO2 Sensor 59 L 57 L Pulse Rhythm [Apical] Pulse Strength [Apical] Respiratory Rate 25 H 20 16 Respiratory Effort / Characteristics Respiratory Depth Respiratory Pattern Blood Pressure Blood Pressure [Right Arm] Blood Pressure Mean Blood Pressure Mean [Right Arm] Pulse Oximetry 97 96 97 Oxygen Delivery Method Room Air Sepsis Recent Fever Within 48 Hours Sepsis New/Unexplained Change in Mental Status Sepsis Action Taken by Nursing 03/24/24 17:00 03/24/24 17:24 03/24/24 17:30 Temperature Temperature Source Pulse Rate 57 L Pulse Rate [Apical] Pulse Rate from SpO2 Sensor 57 L Pulse Rhythm [Apical] Pulse Strength [Apical] Respiratory Rate 9 L Respiratory Effort / Characteristics Respiratory Depth Respiratory Pattern Blood Pressure 159/89 H 173/87 H Blood Pressure [Right Arm] Blood Pressure Mean 110 118 Blood Pressure Mean [Right Arm] Pulse Oximetry 96 Oxygen Delivery Method Sepsis Recent Fever Within 48 Hours Sepsis New/Unexplained Change in Mental Status Sepsis Action Taken by Nursing 03/24/24 17:30 03/24/24 17:36 03/24/24 17:57 Temperature Temperature Source Pulse Rate 57 L 55 L Pulse Rate [Apical] Pulse Rate from SpO2 Sensor 57 L 56 L Pulse Rhythm [Apical] Pulse Strength [Apical] Respiratory Rate 14 18 Respiratory Effort / Characteristics Respiratory Depth Respiratory Pattern Blood Pressure 173/87 H Blood Pressure [Right Arm] Blood Pressure Mean 118 Blood Pressure Mean [Right Arm] Pulse Oximetry 96 94 Oxygen Delivery Method Sepsis Recent Fever Within 48 Hours Sepsis New/Unexplained Change in Mental Status Sepsis Action Taken by Nursing 03/24/24 18:00 03/24/24 18:00 03/24/24 20:00 Temperature Temperature Source Pulse Rate Pulse Rate [Apical] 52 L Pulse Rate from SpO2 Sensor Pulse Rhythm [Apical] Regular Pulse Strength [Apical] Normal Respiratory Rate 18 Respiratory Effort / Characteristics Non-Labored Spontaneous Respiratory Depth Normal Respiratory Pattern Regular Blood Pressure 190/92 H 190/92 H Blood Pressure [Right Arm] 144/80 H Blood Pressure Mean 121 121 Blood Pressure Mean [Right Arm] 101 Pulse Oximetry 99 Oxygen Delivery Method Room Air Sepsis Recent Fever Within 48 Hours Sepsis New/Unexplained Change in Mental Status Sepsis Action Taken by Nursing Laboratory Data 03/24/24 16:25 03/24/24 16:25 Lab Results 03/24/24 Range/Units 16:25 WBC 5.44 (4.8-10.8) K/ul RBC 4.38 L (4.70-6.10) M/uL Hgb 13.5 L (14.0-18.0) g/dl Hct 39.3 L (42.0-52.0) % MCV 89.7 (80.0-100.0) fL MCH 30.8 (25.0-34.0) pg MCHC 34.4 (32.0-36.0) g/dL RDW Std Deviation 41.1 (36.4-46.3) fL RDW Coeff of Yennifer 12.5 (11.5-14.5) % Plt Count 237 (130-400) K/uL MPV 10.0 (9.4-12.4) fL Immature Gran % (Auto) 0.4 % Neut % (Auto) 62.1 % Lymph % (Auto) 21.5 % [place] % (Auto) 9.2 % Eos % (Auto) 5.7 % Baso % (Auto) 1.1 % Neut # (Auto) 3.38 (1.40-6.50) K/uL Lymph # (Auto) 1.17 L (1.20-3.40) K/uL [place] # (Auto) 0.50 (0.11-0.59) K/uL Eos # (Auto) 0.31 (0.00-0.50) K/uL Baso # (Auto) 0.06 (0.00-0.20) K/uL Immature Gran # (Auto) 0.02 (0.01-0.20) K/uL Sodium 141 (136-145) mmol/L Potassium 4.1 (3.5-5.1) mmol/L Chloride 110 H (98-107) mmol/L Carbon Dioxide 24 (21-32) mmol/L Anion Gap 7 (3-11) BUN 21 (6-23) mg/dl Creatinine 1.27 (0.6-1.4) mg/dl Est Cr Clr Drug Dosing 62.1 ml/min Est GFR ( Amer) 61.0 ml/min Est GFR (Non-Af Amer) 52.6 ml/min BUN/Creatinine Ratio 16.5 (10-20) Glucose 130 H (70-99(Fasting)) mg/dl Calcium 9.3 (8.6-10.3) mg/dl Total Bilirubin 0.5 (0.2-1.0) mg/dl AST 16 (13-39) U/L ALT 14 (7-52) U/L Alkaline Phosphatase 75 (34-104) U/L Troponin I High Sens 13.0 (0-20) pg/ml Total Protein 6.7 (6.0-8.3) gm/dl Albumin 4.0 (3.4-5.0) gm/dl Globulin 2.7 (2.5-4.0) gm/dl Albumin/Globulin Ratio 1.5 (0.9-2) Lipase 38 (11-82) U/L Imaging Data Radiologist's Impression: Chest X-Ray 03/24/24 16:14 SINGLE VIEW CHEST CLINICAL HISTORY: Atypical chest pain FINDINGS: An AP, portable, upright chest radiograph is compared to chest x-ray and chest CT dated 03/03/2024. The heart is enlarged. There is mild pulmonary vascular congestion. Chronic interstitial thickening is similar to previous. There is bibasilar scarring/atelectasis. No airspace consolidation or large pleural effusion is identified. No pneumothorax is seen. The skeletal structures are osteopenic. The bony thorax is grossly intact. IMPRESSION: 1. Cardiomegaly with mild pulmonary vascular congestion. 2. No airspace consolidation or large pleural effusion is identified. ACT 112: Negative or not required by law. Electronically signed by: Francois Estrada M.D. 03/24/2024 5:17 PM Discharge Plan Visit Data Chief Complaint: Referred by Doctor Stated Complaint: CARDIAC EVENT MONITOR NEEDS CHECKED OUT ED Provider: Kirt Erickson Discharge Problem: Sinus pause, Chest pain, Tachycardia Forms Stand Alone Forms: [facility] Prescriptions Prescriptions: No Action Prevagen 1 tab PO QAM metformin 500 mg tablet 500 mg PO QAM metoprolol succinate 50 mg tablet extended release 24 hr 25 mg PO DAILY aspirin 81 mg Tablet,Delayed Release (Dr/Ec) 40.5 mg PO DAILY Rx Instructions: Pt takes 0.5 tab by mouth daily Referrals Referrals: Idalia Blake MD [Primary Care Provider] - Discharge Problem: Chest pain Qualifiers: Chest pain type: unspecified Qualified Code(s): R07.9 - Chest pain, unspecified
[2024-03-24 16:57] LABS: Basophils # (auto) 0.06 K/uL (0.00-0.20); Basophils % (auto) 1.1 %; Eosinophils # (auto) 0.31 K/uL (0.00-0.50); Eosinophils % (auto) 5.7 %; Hematocrit (blood only) 39.3 % (42.0-52.0); Hemoglobin 13.5 g/dl (14.0-18.0); Immature Granulocytes # (auto) 0.02 K/uL (0.01-0.20); Immature Granulocytes % (auto) 0.4 %; Lymphocytes # (auto) 1.17 K/uL (1.20-3.40); Lymphocytes % (auto) 21.5 %; Mean Corpuscular Hemoglobin 30.8 pg (25.0-34.0); Mean Corpuscular Hgb Conc 34.4 g/dL (32.0-36.0); Mean Corpuscular Volume 89.7 fL (80.0-100.0); Monocytes % (auto) 9.2 %; Neutrophils # (auto) 3.38 K/uL (1.40-6.50); Neutrophils % (auto) 62.1 %; Platelet Count 237 K/uL (130-400); RDW Coefficient of Variation 12.5 % (11.5-14.5); RDW Standard Deviation 41.1 fL (36.4-46.3); Red Blood Count 4.38 M/uL (4.70-6.10); White Blood Count 5.44 K/ul (4.8-10.8)
[2024-03-24 17:13] LABS: Albumin Globulin Ratio 1.5 (0.9-2); BUN Creatinine Ratio 16.5 (10-20); Bilirubin,Total 0.5 mg/dl (0.2-1.0); Calcium 9.3 mg/dl (8.6-10.3); Creatinine Clr Calc Pharmacy 62.1 ml/min; Est GFR (Non-African American) 52.6 ml/min; Globulin 2.7 gm/dl (2.5-4.0); Potassium 4.1 mmol/L (3.5-5.1); Total Protein 6.7 gm/dl (6.0-8.3)
--- NOTE | 2024-03-24 17:19 | XRay Report ---
SINGLE VIEW CHEST CLINICAL HISTORY: Atypical chest pain FINDINGS: An AP, portable, upright chest radiograph is compared to chest x-ray and chest CT dated 02/09. The heart is enlarged. There is mild pulmonary vascular congestion. Chronic interstitial thic kening is similar to previous. There is bibasilar scarring/atelectasis. No airspace consolidation or large pleural effusion is identified. No pneumothorax is seen. The skeletal structures are osteopenic . The bony thorax is grossly intact. IMPRESSION: 1. Cardiomegaly with mild pulmonary vascular congestion. 2. No airspace consolidation or large pleural effusion is identified. ACT 112: Negative or not required by law. Electronically signed by: Francois Estrada M.D. 03/24/2024 5:17 PM
--- NOTE | 2024-03-24 18:52 | History & Physical Report ---
Date of Service March 24, 2024 Assessment & Plan (1) Sinus pause: Plan: Hold metoprolol (last took on 03/24/2024) Monitor on telemetry Consult cardiology (2) Tachycardia: Plan: ?paroxysmal SVT episode yesterday - he had his surveillance system monitor on but results unavailable at this time for this event Consult cardiology Plan VTE Prophylaxis - low risk Diet - regular Disposition - admit to PCU Admission and Anticipated Discharge Date Admission Date: March 24, 2024 History of Present Illness Chief Complaint: Tachycardia, sinus pauses Primary Care Provider: Idalia Blake MD Robert Del Rio is an 83 year old male who presents to the ER referred by his etiquette coach due to pauses on his surveillance system monitor. He reports another episode of tachycardia for which the monitor was given to him in the first place that occurred yesterday. This lasted for hours with associated chest tightness, diaphoresis and shortness of breath. He denies any palpitations or nausea. He had a sinus pause today and his etiquette coach office called him to go to the ER. ER discussed with Dr Willard and recommended admission on telemetry. Allergies Allergy/AdvReac Type Severity Reaction Status Date / Time No Known Allergies Allergy Verified 03/24/24 18:44 Home Medications Medication Instructions Recorded Confirmed Type Prevagen 1 tab PO QAM 03/04/24 03/24/24 History metformin 500 mg tablet 500 mg PO QAM 03/04/24 03/24/24 History aspirin 81 mg tablet,delayed 40.5 mg PO DAILY 03/24/24 03/24/24 History release metoprolol succinate 50 mg 25 mg PO DAILY 03/24/24 03/24/24 History tablet,extended release 24 hr Past Med/Surg History Problem List (Updated 03/24/24 @ 20:22 by Kirt Erickson DO) Tachycardia (Acute) Chest pain (Acute) Sinus pause (Acute) Paroxysmal SVT (supraventricular tachycardia) Hyperglycemia due to type 2 diabetes mellitus Acute kidney injury Obesity (BMI 30-39.9) Supraventricular tachycardia Dysrhythmia (Acute) Dyspnea (Acute) Chest pain (Acute) Carpal tunnel syndrome on both sides Numbness and tingling of hand Coronary artery calcification seen on CT scan Encounter for immunization Status post total left knee replacement Arthritis of knee, left Allergic rhinitis (Acute) Premature ventricular contractions (Acute) Cerumen impaction (Chronic) Routine health maintenance (Chronic) Elevated LDL cholesterol level (Chronic) Decreased hearing of left ear (Acute) Right knee pain (Chronic) Elevated hemoglobin A1c Arthritis of right knee Toenail deformity Hearing loss Obesity Pre-op evaluation Encounter for pre-operative examination Counseled about COVID-19 virus infection Hx of total knee arthroplasty HTN (hypertension) PCP monitoring, no medications RLS (restless legs syndrome) DM (diabetes mellitus), type 2 (Chronic) Medical History History of COVID-19 Osteoarthritis Borderline high cholesterol Surgical History History of left knee surgery History of arthroplasty of right knee History of tooth extraction History of hernia surgery History of colonoscopy History of thumb surgery History of arthroscopy of right knee Family History Family/Other No problems noted. Mother Family history of diabetes mellitus Other Family history of colon cancer in father No family history of adverse response to anesthesia Denies family history of Ovarian cancer Prostate cancer Clotting disorder Myocardial infarction Breast cancer Social History Smoking Status: Former smoker Tobacco Type: Cigarettes packs per day: 1; Second Hand Exposure: No; Do You Dip or Chew Tobacco: No; Hx Alcohol Use: No Hx Substance Use: No Preferred Language: Bengali Communication Ability: Effective Hearing Ability: Hard of Hearing Director Style Required: No Beliefs That Will Affect Care: None marital status: Current Living Situation: Spouse current occupational status: retired How many Children do You have: 2 Feels Safe at Home: Yes Safety Concerns: Feels Safe At This Time Childhood Exposure to Second-Hand Smoke: No Diet: regular caffeine: Yes Dental Care, Regularly: No Physical Activity Frequency: Does not Exercise Seatbelt Use: always Sunscreen Use: No Assistive Devices: Denture - Upper and Denture - Lower Review of Systems Review of Systems: All systems reviewed & are unremarkable except as noted in HPI & below Physical Exam Constitutional: WD/WN, vitals as above ENMT: external ear and nose normal, oropharynx normal Respiratory: normal respiratory effort, lungs clear to auscultation Cardiovascular: Rate/Rhythm: regular rhythm and + bradycardic Heart Sounds: no murmur Extremities: normal capillary refill; no calf tenderness and no pedal edema Gastrointestinal (Abdomen): normal bowel sounds, soft, nontender, no hepatosplenomegaly Musculoskeletal: no cyanosis or clubbing, extremities motor strength 5/5 Skin: no rashes, warm and dry Neurologic: moves all extremities and awake; not confused Psychiatric: A+Ox3, euthymic affect Genitourinary: no CVA tenderness Results & Data Results & Data Vital Signs (Past 12 Hours) Vital Signs Temp Pulse Resp BP Pulse Ox O2 Del Method 03/24/24 18:00 190/92 H 03/24/24 18:00 190/92 H 03/24/24 17:57 55 L 18 94 03/24/24 17:36 57 L 14 96 03/24/24 17:30 173/87 H 03/24/24 17:30 173/87 H 03/24/24 17:24 57 L 9 L 96 03/24/24 17:00 159/89 H 03/24/24 17:00 57 L 16 97 03/24/24 16:43 59 L 20 96 Room Air 03/24/24 16:39 60 25 H 97 03/24/24 16:37 64 03/24/24 16:32 145/88 H 03/24/24 16:10 36.6 C 62 18 144/71 H 95 Room Air Laboratory Results Abnormal lab results 03/24/24 Range/Units 16:25 RBC 4.38 L (4.70-6.10) M/uL Hgb 13.5 L (14.0-18.0) g/dl Hct 39.3 L (42.0-52.0) % Lymph # (Auto) 1.17 L (1.20-3.40) K/uL Chloride 110 H (98-107) mmol/L Glucose 130 H (70-99(Fasting)) mg/dl Diagnostic Findings SINGLE VIEW CHEST CLINICAL HISTORY: Atypical chest pain FINDINGS: An AP, portable, upright chest radiograph is compared to chest x-ray and chest CT dated 03/03/2024. The heart is enlarged. There is mild pulmonary vascular congestion. Chronic interstitial thickening is similar to previous. There is bibasilar scarring/atelectasis. No airspace consolidation or large pleural effusion is identified. No pneumothorax is seen. The skeletal structures are osteopenic. The bony thorax is grossly intact. IMPRESSION: 1. Cardiomegaly with mild pulmonary vascular congestion. 2. No airspace consolidation or large pleural effusion is identified. Medications Administered ER Medications Given: None ECG Rate (beats per minute): 62 Rhythm: normal sinus Findings: + LAFB Comparison ECG Date: from (March 04, 2024) Change: the following changes noted (non specific T wave abnormalities no longer present) Code Status & VTE Plan Code Status Full VTE Prophylaxis Plan VTE Prophylaxis will be ordered: No PG Care Time/CCT Total # of Minutes Spent Total Time Spent with Patient: Total time spent is greater than 50% in coordination of care (as documented) at patient's floor/unit and/or counseling patient: Coding Level of Care Code 48691 INT INP/OBS CARE 2/55MIN Diagnoses Sinus pause I45.5 Tachycardia R00.0
[2024-03-25] MEDS: metFORMIN HCL 500 MG TAB PO SCH (08:21)
[2024-03-25] MEDS: ASPIRIN 81 MG CHEW PO SCH (08:21)
--- NOTE | 2024-03-25 09:25 | Cardiology Consultation ---
Date of Consultation March 25, 2024 Assessment & Plan (1) Sinus pause: (2) Sinus bradycardia: (3) Paroxysmal SVT (supraventricular tachycardia): Mr. Del Rio is an 83 year old male with a history of Type 2 Diabetes Mellitus, Hypertension, PSVT, Osteoarthritis s/p B/L TKA's, RLS, and Coronary Artery Calcifications (presumed CAD) who was hospitalized 2 weeks ago after presenting with supraventricular tachycardia. He did have a slight elevation in his high sensitivity troponin I levels suspected to be demand ischemia secondary to tachycardia. Echocardiogram 03/04/24 show normal LV systolic function and wall motion, LVEF 60% to 65%, moderate concentric LVH, grade I LV diastolic dysfunction, and normal RV size and systolic function. Patient started on a beta laurence to treat his PSVT. A Cardiac Event Monitor was ordered to assess his PSVT burden. Patient was noted to have sinus bradycardia and sinus pauses on the monitor, his Metoprolol dose was subsequently reduced from 50 mg down to 25 mg daily. However, he continued to have sinus bradycardia and sinus pauses on his monitor. Pause lasted 3.3 to 3.9 seconds -- so he was advised to come into the ER for further evaluation. Patient was admitted to telemetry and his beta laurence has been held. Patient is scheduled for a treadmill stress test and an appt with this Sunday. Patient does admit to some chest tightness when he is longer episodes of PSVT, and he likely has some degree of coronary artery disease (based on coronary artery calcifications on CT scan). Patient also admits to exertional dyspnea if he pushes himself. This could be associated with his PSVT or bradycardia/chronotropic incompetence. Patient is currently asymptomatic and is sitting in a bedside chair in room 234 bed 1. He does not routinely experience palpitations even with his PSVT. Patient has not experienced any lightheaded spells, syncope, or near-syncope despite his cardiac pauses. His last dose of Toprol-XL 25 mg was on 03/24/2024. On current estimator binding, he is in a sinus bradycardia at rates in the mid to upper 50's, occasional PVC's, and he has had no further pauses. It appears that his sinus pauses or likely secondary to his beta-laurence as these cardiac pauses appear to have resolved off of his beta-laurnece. We had a long discussion today regarding treatment options for his PSVT, we discussed at length catheter based ablation which would be curative of his PSVT then he would not need to worry about being on negative chronotropic medications. At this point, he appears to be stable for discharge. He is going to go home and discuss an ablation procedure with his , and he will also discuss this with Dr. Concepcion on Sunday. Recommend the followin. Catheter based ablation procedure for his PSVT. 2. Avoid negative chronotropic medications for the time being. Stay off of Metoprolol Succinate ER. 3. Discharge patient to home today. 4. Keep appt with Dr. Concepcion later this week. (4) Coronary artery calcification seen on CT scan: -- Presumed CAD, consider adding a statin medication, continue Aspirin daily. -- Scheduled for a Treadmill Stress Test in the near future. (5) HTN (hypertension): Patient is hypertensive, PCP is monitoring. Patient is stable for discharge to home today. History of Present Illness Reason for Consultation: -- Sinus Pauses/Bradycardia. -- PSVT. Requesting Physician: Jasmyne Knapp MD Attending Physician: Francisco Willard MD History of Present Illness Mr. Del Rio is an 83 year old male with a history of Type 2 Diabetes Mellitus, Hypertension, PSVT, Osteoarthritis s/p B/L TKA's, RLS, and Coronary Artery Calcifications (presumed CAD) who was hospitalized 2 weeks ago after presenting with supraventricular tachycardia. He did have a slight elevation in his high sensitivity troponin I levels suspected to be demand ischemia secondary to tachycardia. Echocardiogram 03/04/24 show normal LV systolic function and wall motion, LVEF 60% to 65%, moderate concentric LVH, grade I LV diastolic dysfunction, and normal RV size and systolic function. Patient started on a beta laurence to treat his PSVT. A Cardiac Event Monitor was ordered to assess his PSVT burden. Patient was noted to have sinus bradycardia and sinus pauses on the monitor, his Metoprolol dose was subsequently reduced from 50 mg down to 25 mg daily. However, he continued to have sinus bradycardia and sinus pauses on his monitor. Pause lasted 3.3 to 3.9 seconds -- so he was advised to come into the ER for further evaluation. Patient was admitted to telemetry and his beta laurence has been held. On current estimator binding, he is in a sinus bradycardia at rates in the mid to upper 50's, occasional PVC's, and he has had no further pauses. Patient is scheduled for a treadmill stress test and an appt with this Sunday. Patient does admit to some chest tightness when he is longer episodes of PSVT, and he likely has some degree of coronary artery disease (based on coronary artery calcifications on CT scan). Patient also admits to exertional dyspnea if he pushes himself. This could be associated with his PSVT or bradycardia/chronotropic incompetence. Patient is currently asymptomatic and is sitting in a bedside chair in room 234 bed 1. He currently denies any chest pain, heaviness, tightness, pressure, or discomfort. He denies any neck, jaw, back, or arm pain. He denies any shortness of breath at rest, orthopnea, or PND. He does not routinely experience palpitations even with his PSVT. He has not had any syncope or near-syncope. His last dose of Toprol-XL 25 mg was on 03/24/2024. Patient's TSH is slightly elevated suggesting hypothyroidism. His electrolytes are within normal limits. He is compliant with his medications. Allergies Allergy/AdvReac Type Severity Reaction Status Date / Time No Known Allergies Allergy Verified 03/24/24 18:44 Home Medications Medication Instructions Recorded Confirmed Type Prevagen 1 tab PO QAM 03/04/24 03/24/24 History metformin 500 mg tablet 500 mg PO QAM 03/04/24 03/24/24 History aspirin 81 mg tablet,delayed 40.5 mg PO DAILY 03/24/24 03/24/24 History release metoprolol succinate 50 mg 25 mg PO DAILY 03/24/24 03/24/24 History tablet,extended release 24 hr Patient History Medical History History of COVID-19 Dx 11/2021--asymptomatic (tested for preop) Osteoarthritis Borderline high cholesterol Surgical History History of left knee surgery History of arthroplasty of right knee Right TKA (12/07/21): SAB at L3/4 + PNB at [facility]. No issues noted per post-op anesthesia progress note. History of tooth extraction History of hernia surgery right inguinal History of colonoscopy History of thumb surgery Left (had metal removed) History of arthroscopy of right knee Family History Family/Other No problems noted. Mother Family history of diabetes mellitus Other Family history of colon cancer in father No family history of adverse response to anesthesia Denies family history of Ovarian cancer Prostate cancer Clotting disorder Myocardial infarction Breast cancer Social History Smoking Status: Former smoker Tobacco Type: Cigarettes packs per day: 1; Second Hand Exposure: No; Do You Dip or Chew Tobacco: No; Hx Alcohol Use: No Hx Substance Use: No Preferred Language: [place] Communication Ability: Effective Hearing Ability: Hard of Hearing Appliance Parts Counter Clerk Required: No Beliefs That Will Affect Care: None marital status: Current Living Situation: Spouse current occupational status: retired How many Children do You have: 2 Feels Safe at Home: Yes Safety Concerns: Feels Safe At This Time Childhood Exposure to Second-Hand Smoke: No Diet: regular caffeine: Yes Dental Care, Regularly: No Physical Activity Frequency: Does not Exercise Seatbelt Use: always Sunscreen Use: No Assistive Devices: Denture - Upper and Denture - Lower Review of Systems Review of Systems: -- As per HPI. Physical Exam Physical Exam: GENERAL: Patient in no acute distress. HEENT: Head is atraumatic, normocephalic. EOM's intact. Facies symmetric. No perioral cyanosis. NECK: No JVD. JVP is not elevated. Carotid upstrokes are + 2 bilaterally without bruits. CHEST/LUNGS: Clear to auscultation throughout all lung thomas. No wheezes, rales, or crackles. CVS: S1 and S2 are regular and bradycardic at 57 bpm. No murmurs, gallops, or rubs. PMI is nonpalpable. No lifts, heaves, or thrills. No abdominal aortic or renal bruits. ABDOMINAL EXAM: Bowel sounds are present. EXTREMITIES: No clubbing or cyanosis. Trace distal leg edema. Intact radial pulses bilaterally. NEUROLOGIC EXAM: Patient is awake, alert, and oriented. Pleasant and cooperative. Answers questions appropriately. Speech is clear. MASTER SONAR TECHNICIAN: -- Sinus bradycardia in the mid to upper 50's, occasional PVC's. -- No further sinus pauses now that he i s off of Metoprolol. Results & Data Vital Signs (Past 12 Hours) Vital Signs Temp Pulse Pulse Resp BP Pulse Ox O2 Del Method 03/25/24 08:14 53 L 03/25/24 07:56 36.8 C 61 18 160/73 H 96 Room Air 03/25/24 02:46 36.4 C L 53 L 18 170/76 H 96 Room Air 03/24/24 23:41 Room Air 03/24/24 23:10 62 03/24/24 23:10 36.8 C 59 L 18 169/85 H 97 Room Air 03/24/24 22:16 54 L 16 146/69 H 98 Room Air Laboratory Results Laboratory Results - last 24 hr 03/24/24 16:25 WBC 5.44 RBC 4.38 L Hgb 13.5 L Hct 39.3 L MCV 89.7 MCH 30.8 MCHC 34.4 RDW Std Deviation 41.1 RDW Coeff of Yennifer 12.5 Plt Count 237 MPV 10.0 Immature Gran % (Auto) 0.4 Neut % (Auto) 62.1 Lymph % (Auto) 21.5 [place] % (Auto) 9.2 Eos % (Auto) 5.7 Baso % (Auto) 1.1 Neut # (Auto) 3.38 Lymph # (Auto) 1.17 L [place] # (Auto) 0.50 Eos # (Auto) 0.31 Baso # (Auto) 0.06 Immature Gran # (Auto) 0.02 Sodium 141 Potassium 4.1 Chloride 110 H Carbon Dioxide 24 Anion Gap 7 BUN 21 Creatinine 1.27 Est Cr Clr Drug Dosing 62.1 Est GFR ( Amer) 61.0 Est GFR (Non-Af Amer) 52.6 BUN/Creatinine Ratio 16.5 Glucose 130 H Calcium 9.3 Total Bilirubin 0.5 AST 16 ALT 14 Alkaline Phosphatase 75 Troponin I High Sens 13.0 Total Protein 6.7 Albumin 4.0 Globulin 2.7 Albumin/Globulin Ratio 1.5 Lipase 38 Diagnostic Findings CXR 03/24/24: FINDINGS: An AP, portable, upright chest radiograph is compared to chest x-ray and chest CT dated 03/03/2024. The heart is enlarged. There is mild pulmonary vascular congestion. Chronic interstitial thickening is similar to previous. There is bibasilar scarring/atelectasis. No airspace consolidation or large pleural effusion is identified. No pneumothorax is seen. The skeletal structures are osteopenic. The bony thorax is grossly intact. IMPRESSION: 1. Cardiomegaly with mild pulmonary vascular congestion. 2. No airspace consolidation or large pleural effusion is identified. Medications Administered Medication List Aspirin (Aspirin 81 Mg Chew) 40.5 mg PO DAILY [facility] Stop: 04/24/24 08:59 Last Admin: 03/25/24 08:21 Dose: 40.5 mg Documented By: BT Metformin HCl (Metformin Hcl 500 Mg Tab) 500 mg PO QAM [facility] Stop: 04/24/24 08:59 Last Admin: 03/25/24 08:21 Dose: 500 mg Documented By: EVELYN PG Care Time/CCT Total # of Minutes Spent Total Time Spent with Patient: Total time spent is greater than 50% in coordination of care (as documented) at patient's floor/unit and/or counseling patient:46 Coding [place] [address] INT INP/OBS CARE 2/55MIN Patient Type Established History Comprehensive Exam Comprehensive Medical Decision Making Moderate Complexity Diagnoses Sinus pause I45.5 Sinus bradycardia R00.1 Paroxysmal SVT (supraventricular tachycardia) I47.10 Coronary artery calcification seen on CT scan I25.10 Primary hypertension I10 Hypertension type: primary hypertension Time Spent (min) 64 (5) HTN (hypertension) Hypertension type: primary hypertension Qualified Code(s): I10 - Essential (primary) hypertension
--- NOTE | 2024-03-25 11:00 | Electrocardiogram Report ---
Test Reason : Blood Pressure : / mmHG Vent. Rate : 062 BPM Atrial Rate : 062 BPM P-R Int : 180 ms QRS Dur : 090 ms QT Int : 390 ms P-R-T Axes : 023 -49 038 degrees QTc Int : 395 ms Normal sinus rhythm Left anterior fascicular block Abnormal ECG When compared with ECG of 04-MAR-2024 11:28, Sinus rhythm has replaced Ectopic atrial rhythm Nonspecific T wave abnormality no longer evident in Inferior leads Nonspecific T wave abnormality no longer evident in Lateral leads Confirmed by Francisco Willard ([id number]) on 03/25/2024 11:00:18 AM Referred By: Confirmed By:Francisco Willard
--- NOTE | 2024-03-25 17:08 | Hospitalist Progress Note ---
Date of Service March 25, 2024 Assessment & Plan (1) Sinus pause: Plan: Hold metoprolol (last took on 03/24/2024) Monitor on telemetry Cardiology consulted. Recommends keeping the metoprolol on hold. Recommends follow-up with Dr. Concepcion later this week to consider ablation for his PSVT so that he can be off of negative chronotropics. Will monitor overnight for any further episodes of sinus pauses or PSVT off of metoprolol Likely discharge tomorrow (2) Tachycardia: Plan: Patient has PSVT Was started on metoprolol for his PSVT Metoprolol on hold due to sinus pause Monitor for further episodes of PSVT off of metoprolol. Cardiology may consider ablation for definitive treatment of his PSVT. This will be considered outpatient Patient may have some degree of coronary artery disease, based on coronary artery calcification seen on CT. He is scheduled for a stress test outpatient Plan VTE Prophylaxis - low risk Diet - regular Admission and Anticipated Discharge Date Admission Date: March 24, 2024 Subjective Patient feels well at this time. He complains of feeling winded with exertion but he has not been exerting himself in the hospital. Review of Systems Review of Systems: All systems reviewed & are unremarkable except as noted in Subjective Physical Exam Physical Exam: General: Awake, conversant Heart: S1, S2/regular rate and rhythm, no murmur rubs or gallops Lungs: Clear to auscultation bilaterally. Normal effort Abdomen: Soft/nontender/nondistended. No hepatosplenomegaly Extremities: No clubbing/cyanosis. No edema Behavior: Appropriate, cooperative Results & Data Results & Data Vital Signs (Past 12 Hours) Vital Signs Temp Pulse Pulse Resp BP Pulse Ox O2 Del Method 03/25/24 15:20 36.6 C 62 19 145/75 H 95 Room Air 03/25/24 14:44 65 03/25/24 11:37 36.9 C 59 L 18 145/79 H 97 Room Air 03/25/24 08:14 53 L 03/25/24 07:56 36.8 C 61 18 160/73 H 96 Room Air Laboratory Results Abnormal lab results 03/24/24 Range/Units 16:25 Chloride 110 H (98-107) mmol/L Glucose 130 H (70-99(Fasting)) mg/dl Diagnostic Findings Chest X-Ray 03/24/24 16:14 SINGLE VIEW CHEST CLINICAL HISTORY: Atypical chest pain FINDINGS: An AP, portable, upright chest radiograph is compared to chest x-ray and chest CT dated 03/03/2024. The heart is enlarged. There is mild pulmonary vascular congestion. Chronic interstitial thickening is similar to previous. There is bibasilar scarring/atelectasis. No airspace consolidation or large pleural effusion is identified. No pneumothorax is seen. The skeletal structures are osteopenic. The bony thorax is grossly intact. IMPRESSION: 1. Cardiomegaly with mild pulmonary vascular congestion. 2. No airspace consolidation or large pleural effusion is identified. ACT 112: Negative or not required by law. Electronically signed by: Francois Estrada M.D. 03/24/2024 5:17 PM PG Care Time/CCT Total # of Minutes Spent Total Time Spent with Patient: Total time spent is greater than 50% in coordination of care (as documented) at patient's floor/unit and/or counseling patient: Coding Level of Care Code 56072 SUB INP/OBS CARE 2/35MIN Diagnoses Sinus pause I45.5 Tachycardia R00.0
[2024-03-25] MEDS: LACTATED RINGER'S 500 ML IV ONE (23:44)
[2024-03-25] MEDS: MAGNESIUM SULFATE / D5W 1 GM/100 ML BAG IV SCH (23:44)
--- NOTE | 2024-03-26 11:16 | Discharge Summary ---
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 He reports another episode of tachycardia for which the monitor was given to him in the first place that occurred yesterday. This lasted for hours with associated chest tightness, diaphoresis and shortness of breath. He denies any palpitations or nausea. He had a sinus pause today and his activities director scouting office called him to go to the ER. ER discussed with Dr Willard and recommended admission on telemetry. Admission Exam Per Admitting Provider Constitutional: WD/WN, vitals as above ENMT: external ear and nose normal, oropharynx normal Respiratory: normal respiratory effort, lungs clear to auscultation Cardiovascular: Rate/Rhythm: regular rhythm and + bradycardic Heart Sounds: no murmur Extremities: normal capillary refill; no calf tenderness and no pedal edema Gastrointestinal (Abdomen): normal bowel sounds, soft, nontender, no hepatosplenomegaly Musculoskeletal: no cyanosis or clubbing, extremities motor strength 5/5 Skin: no rashes, warm and dry Neurologic: moves all extremities and awake; not confused Psychiatric: A+Ox3, euthymic affect Genitourinary: no CVA tenderness Principal Diagnosis Sinus pauses. Beta-laurence discontinued History of PSVT. Discharge Exam General: Awake, conversant Heart: S1, S2/regular rate and rhythm, no murmur rubs or gallops Lungs: Clear to auscultation bilaterally. Normal effort Abdomen: Soft/nontender/nondistended. No hepatosplenomegaly Extremities: No clubbing/cyanosis. No edema Behavior: Appropriate, cooperative Discharge Data Allergies Allergy/AdvReac Type Severity Reaction Status Date / Time No Known Allergies Allergy Verified 03/24/24 18:44 Consultations 03/24/24 16:39 ED Decision to Admit Stat 03/25/24 07:10 Consult Cardiology Routine Hospital Course (1) Sinus pause: Hold metoprolol (last took on 03/24/2024) Monitor on telemetry Cardiology consulted. Recommends keeping the metoprolol on hold. Recommends follow-up with Dr. Concepcion later this week to consider ablation for his PSVT so that he can be off of negative chronotropics. Patient had an episode of PSVT overnight. Cardiology aware. Cardiology still cleared the patient for discharge with follow-up appointment with Dr. Concepcion in 2 days. (2) Tachycardia: Patient has PSVT Was started on metoprolol for his PSVT Metoprolol on hold due to sinus pause Cardiology may consider ablation for definitive treatment of his PSVT. This will be considered outpatient Patient may have some degree of coronary artery disease, based on coronary artery calcification seen on CT. He is scheduled for a stress test outpatient Plan Discharge to home today after obtaining cardiology clearance. Total Time Total Time Spent Total Time Spent (In Minutes): 35 Discharge Plan Discharge Items Patient Disposition: Home - Self-Care Reason For Visit: SINUS PAUSES Discharge Diagnosis: Sinus pauses. Beta-laurence discontinued History of PSVT. Activity: Resume your previous activity Non-emergency contact: Primary Care Provider Call non-emergency contact if: you have any medication questions and your symptoms worsen Follow-up/Referrals: Jomar Concepcion MD [Physician] - (Cardiology will call Pt to schedule follow up.) Francisco Willard MD [Physician] - Idalia Blake MD [Primary Care Provider] - 04/03/24 10:00 am (Hospital follow up scheduled April 03 at 10:00 with JUAN MANUEL Rosales) Diet: Heart Healthy Addtl Attending Provider Instructions: Advised to follow-up with PCP in 1 week Advised to follow-up with Dr. Concepcion as per prior schedule Pending Studies at Discharge: No Stand-Alone Forms: My [facility] Medications and DC Order Prescriptions: Continued Prevagen 1 tab PO QAM metformin 500 mg tablet 500 mg PO QAM aspirin 81 mg Tablet,Delayed Release (Dr/Ec) 40.5 mg PO DAILY Rx Instructions: Pt takes 0.5 tab by mouth daily Discontinued metoprolol succinate 50 mg tablet extended release 24 hr 25 mg PO DAILY Discharge Orders: Discharge Order (Routine); Ordered 03/26/24 Ordered By: Jasmyne Knapp Admission Data Admit Date/Time: 03/24/24 18:21 Attending Provider: Jasmyne Knapp Admit Provider: Jeremy Martin Primary Care Provider: Idalia Blake Other Providers: Jeremy Martin; Francisco Willard Other Interventions: Discharge Summary Assessment (RN) Last Done: 03/26/24 12:47 Coding Level of Care Code 44251 INP/OBS DISCH >30 MIN Diagnoses Sinus pause I45.5 Tachycardia R00.0
== END 2024-03-26 13:35 | disposition home or self-care (01) | DRG 309 ==
LOC: ED 16:03 → SUATTDRO 18:21 → EDINP 18:21 → 2S 23:06